=== PATIENT | male | born 1950 | race Caucasian/White ===

== ENCOUNTER → 2017-08-17 09:22 | Outpatient (CLI) | payer OTHER, SELFPAY ==
[2017-08-17 09:49] LABS: Hematocrit 43.7 % (41-53); Hemoglobin 14.7 g/dL (13.5-17.5)
[2017-08-17 10:44] LABS: BUN Creatinine Ratio 17.5 (6-22); Blood Urea Nitrogen 42 mg/dL (9-20); Calcium 9.2 mg/dL (8.4-10.2); Carbon Dioxide 22 mmol/L (22-32); Chloride 107 mmol/L (98-107); Estimated Glomerular Filt Rate 27.1 mL/min (>60); Glucose 107 mg/dL (80-110); HEMOLYSIS 16 (0-50); Potassium 4.8 mmol/L (3.4-5.1); Sodium 143 mmol/L (137-145)
== END ==
PROVIDERS: PCP Family Medicine; Visit Provider Student in an Organized Health Care Education/Training Program
DX: N05.9 Unspecified nephritic syndrome with unspecified morphologic changes (principal); D50.0 Iron deficiency anemia secondary to blood loss (chronic); D64.9 Anemia, unspecified
CPT/HCPCS: 36415; 80048; 85014; 85018

== ENCOUNTER 2017-08-25 12:58 | Emergency (ER) | payer OTHER, SELFPAY ==
--- NOTE | 2017-08-25 13:12 | DI.RAD.S_ITS ---
PROCEDURE: XR RIBS LT MIN 3V W CXR1V INDICATIONS: Left rib injury. TECHNIQUE: 2 views of the left ribs were acquired, along with a single view chest. COMPARISON: None. FINDINGS: Surgical changes and devices: None. Bones and chest wall: N displaced fractures or dislocations. No suspicious bony lesions. Overlying soft tissues appear unremarkable. Lungs and pleura: No pleural effusions or pneumothorax. Lungs appear clear. Mediastinum: Mediastinal contours appear normal. Heart size is normal. IMPRESSION: No displaced left rib fractures. No pneumothorax. Dictated by: Justice Olivo M.D. on 08/25/2017 at 13:09 Approved by: Justice Olivo M.D. on 08/25/2017 at 13:10
[2017-08-25 13:13] VITALS: BP 171/91; PULSE 61; RESP 18; TEMP 36.7; O2SAT 96; BMI 46.2
--- NOTE | 2017-08-25 13:38 | ED.FALL ---
HPI - Fall <LEENA Winslow - Last Filed: 08/25/17 19:45> General Chief Complaint: Fall Stated Complaint: FELL ON FACE,HEADACHE,STABBING PAIN Time Seen by Provider: 08/25/17 13:25 History of Present Illness HPI Narrative: 67-year-old male here for complaint of pain into his head his left chest and bilateral wrist status post ground level fall earlier today. He states that he stepped off his uneven driveway causing him to fall forward on outstretched hands. He reports that his left forehead after he rolled forward he denies any loss of consciousness. He denies any nausea or vomiting. He also reports that he has pain into his left ribcage area after the fall. Pain into both his wrist after using his arms to brace his fall. Increased pain with motion of the wrist. He is ambulatory into the emergency room. He denies any other concerns or complaints. MD complaint: fall Related Data Home Medications Medication Instructions Recorded Confirmed acetaminophen 650 mg PO PRN PRN #0 08/24/16 08/25/17 calcitriol 1 cap PO EVERY OTHER DAY 08/25/17 08/25/17 citalopram 2 tab PO BEDTIME 08/25/17 08/25/17 Previous Rx's Medication Instructions Recorded metoprolol tartrate 50 mg PO DAILY #90 tab 11/10/16 gemfibrozil 600 mg PO BIDAC #180 tab 11/16/16 simvastatin 20 mg PO HS #90 tab 12/13/16 glyburide 5 mg PO BID #180 tab 12/14/16 amlodipine [Norvasc] 5 mg PO QDAY #90 tab 01/19/17 gabapentin [Neurontin] 600 mg PO BID #120 cap 08/19/17 Allergies Allergy/AdvReac Type Severity Reaction Status Date / Time metformin AdvReac Intermediate TOXIC TO Verified 08/25/17 13:13 [facility] Review of Systems <LEENA Winslow - Last Filed: 08/25/17 19:45> Constitutional Denies chills, Denies fever(s), Reports headache(s), Denies lethargy and Denies weakness Eyes Denies change in vision, Denies eye discharge, Denies irritation and Denies loss of vision ENT Ears, Nose, Mouth, and Throat: Reports headache(s) Cardiovascular Denies chest pain, Denies irregular heart rhythm, Denies lightheadedness, Denies palpitations, Denies dyspnea, Denies dyspnea on exertion and Denies orthopnea Respiratory Denies cough, Denies dyspnea, Denies dyspnea on exertion and Denies wheezing Gastrointestinal Gastrointestinal: Denies abdominal pain, Denies change in bowel habits, Denies diarrhea, Denies nausea and Denies vomiting Genitourinary Denies hematuria, Denies flank pain, Denies urinary incontinence and Denies urinary urgency Musculoskeletal Comments: Bilateral wrist pain and left rib pain Integumentary/Breasts Denies pruritus, Denies erythema, Denies rash and Denies wounds Neurologic Reports headache(s), Denies loss of vision and Denies weakness Endocrine Denies palpitations Allergic/Immunologic Denies wheezing Exam <LEENA Winslow - Last Filed: 08/25/17 19:45> Initial Vital Signs Initial Vital Signs: Vital Signs Temperature 98.1 F 08/25/17 13:13 Pulse Rate 61 08/25/17 13:13 Respiratory Rate 18 08/25/17 13:13 Blood Pressure 171/91 H 08/25/17 13:13 Pulse Oximetry 96 08/25/17 13:13 Const General: cooperative and well developed Nutritional Appearance: well nourished Orientation: alert, awake, oriented x3 and not confused HENMS Head: abrasion and other (Abrasion to left forehead no step-offs. No raccoon eyes no [place] signs.) Mouth: oral mucosae normal, oropharynx normal and moist mucous membranes Eyes General: appearance normal, both eyes and all related structures Eyelids: eyelids normal Conjunctivae: conjunctivae normal Sclera: sclerae normal Pupils: PERRL EOM: EOM intact bilaterally Neck Neck: normal visual inspection, trachea midline, No lymphadenopathy, No midline deformity and No JVD Lymphatic: No lymphedema Chest Chest: normal inspection of the chest and tenderness Resp Effort & Inspection: normal respiratory effort, able to speak in complete sentences, no respiratory distress and no use of accessory muscles Auscultation: clear to auscultation bilaterally, no rales, no rhonchi and no wheezes Cardio Rate: regular rate Rhythm: regular rhythm Heart Sounds: no click, no gallops, no murmurs and no rubs Pulses: normal peripheral pulses GI Inspection: non-distended Palpation: soft, no hepatosplenomegaly, No guarding, No pulsatile mass and No tender Auscultation: normal bowel sounds Skin General: no rashes or lesions noted, No jaundice and No petechiae Extrem Other: Bilateral wrist with slight ecchymosis. No swelling. No deformities. Distal CMS intact distally bilaterally <Yadi Magdaleno DO - Last Filed: 08/26/17 08:27> Initial Vital Signs Initial Vital Signs: Vital Signs Temperature 98.1 F 08/25/17 13:13 Pulse Rate 61 08/25/17 13:13 Respiratory Rate 18 08/25/17 13:13 Blood Pressure 171/91 H 08/25/17 13:13 Pulse Oximetry 96 08/25/17 13:13 Course <LEENA Winslow - Last Filed: 08/25/17 19:45> Orders Ordered: Discontinued Medications Acetaminophen (Tylenol) 325 mg HI NOW ONE Stop: 08/25/17 13:46 Last Admin: 08/25/17 14:00 Dose: Not Given Acetaminophen (Tylenol) 325 mg PO Q6HR PRN PRN Reason: As Needed for Fever/Mild Pain Last Admin: 08/25/17 14:00 Dose: 325 mg Vital Signs - 8 hr 08/25/17 13:13 08/25/17 16:18 Temperature 98.1 F Pulse Rate 61 54 L Respiratory Rate 18 17 Blood Pressure 171/91 H 119/89 H Pulse Oximetry 96 98 <Yadi Magdaleno DO - Last Filed: 08/26/17 08:27> Orders Ordered: Discontinued Medications Acetaminophen (Tylenol) 325 mg HI NOW ONE Stop: 08/25/17 13:46 Last Admin: 08/25/17 14:00 Dose: Not Given Acetaminophen (Tylenol) 325 mg PO Q6HR PRN PRN Reason: As Needed for Fever/Mild Pain Last Admin: 08/25/17 14:00 Dose: 325 mg Vital Signs - 8 hr 08/25/17 13:13 08/25/17 16:18 Temperature 98.1 F Pulse Rate 61 54 L Respiratory Rate 18 17 Blood Pressure 171/91 H 119/89 H Pulse Oximetry 96 98 MDM - Fall <LEENA Winslow - Last Filed: 08/25/17 19:45> Imaging Data CT scan - head: Radiologist's impression: PROCEDURE: CT HEAD/BRAIN WO CON INDICATIONS: Ground level fall hitting forehead. TECHNIQUE: Noncontrast 4.5 mm thick angled axial sections acquired from the foramen magnum to the vertex, with coronal and sagittal reformats. For radiation dose reduction, the following was used: automated exposure control, adjustment of mA and/or kV according to patient size. COMPARISON: None. FINDINGS: Image quality: Excellent. CSF spaces: Basal cisterns are patent. No extra-axial fluid collections. The ventricles are symmetric in size and shape. Brain: No intracranial bleeds or masses. There is cerebral volume loss for age, with resultant ventricular and sulcal prominence. There are periventricular and deep white matter chronic small vessel ischemic changes. There is intracranial internal carotid artery atherosclerosis. Skull and face: Calvarium and visualized facial bones appear intact, without suspicious lesions. Sinuses: Visualized sinuses and mastoids are clear. IMPRESSION: 1. No acute intracranial process. 2. Minimal atrophy and chronic microvascular ischemic changes. Dictated by: Catherine Balbuena M.D. on 08/25/2017 at 14:48 Approved by: Catherine Balbuena M.D. on 08/25/2017 at 14:50 Chest x-ray: Radiologist's impression: PROCEDURE: XR RIBS LT MIN 3V W CXR1V INDICATIONS: Left rib injury. TECHNIQUE: 2 views of the left ribs were acquired, along with a single view chest. COMPARISON: None. FINDINGS: Surgical changes and devices: None. Bones and chest wall: N displaced fractures or dislocations. No suspicious bony lesions. Overlying soft tissues appear unremarkable. Lungs and pleura: No pleural effusions or pneumothorax. Lungs appear clear. Mediastinum: Mediastinal contours appear normal. Heart size is normal. IMPRESSION: No displaced left rib fractures. No pneumothorax. Dictated by: Justice Olivo M.D. on 08/25/2017 at 13:09 Approved by: Justice Olivo M.D. on 08/25/2017 at 13:10 Right wrist : Radiologist's impression: PROCEDURE: XR WRIST RT MIN 3V INDICATIONS: Ground level fall on the outstretched hand TECHNIQUE: 4 views of the wrist were acquired. COMPARISON: [facility], , HAND 3V RIGHT, 12/31/2015, 14:30. [facility], , WRIST MINIMUM 3 VIEWS RIGHT, 12/31/2015, 14:30. 12/31/15.[facility], XR WRIST LT MIN 3V, 08/25/2017, 13:33. FINDINGS: Bones: There is an ill-defined, nondisplaced lucency within the midportion of the scaphoid. This appears new compared to prior exam dated 12/31/15. However, it is noted it is only identified on the scaphoid view. Soft tissues: No suspicious soft tissue calcifications. IMPRESSION: Ill-defined nondisplaced lucency within the midportion of the scaphoid, seen only on one view and appearing changed compared to prior exam. Nondisplaced fracture cannot be excluded and recommend correlation of point tenderness as well as short interval imaging followup in 7-10 days. Dictated by: Catherine Balbuena M.D. on 08/25/2017 at 14:31 Approved by: Catherine Balbuena M.D. on 08/25/2017 at 14:35 Left wrist : Radiologist's impression: PROCEDURE: XR WRIST LT MIN 3V INDICATIONS: Ground level fall with outstretched hands TECHNIQUE: 4 views of the wrist were acquired. COMPARISON: [facility], WRIST MINIMUM 3 VIEWS RIGHT, 12/31/2015, 14:30. FINDINGS: Bones: There is a partially visualized rounded calcification adjacent to the lateral aspect of the distal radius adjacent to the scaphoid. It is not well characterized on all views. Soft tissues: No suspicious soft tissue calcifications. IMPRESSION: Personally visually calcification at the lateral aspect of the distal radius as above. Positioning is considered suboptimal. This could represent a radial styloid fracture. Recommend correlation of point tenderness. Dictated by: Catherine Balbuena M.D. on 08/25/2017 at 14:35 Approved by: Catherine Balbuena M.D. on 08/25/2017 at 14:42 [facility] Narrative Medical decision making narrative: CT the head was obtained was negative for any acute findings. Chest/rib xray negative for any fractures. X-ray of the right wrist shows some lucency next to the scaphoid bone indicating possible fracture he is placed in a thumb spica splint for immobilization. Left wrist x-ray shows calcification adjacent to the distal lateral radius indicating possible fracture. Patient is tender in both wrists he is placed in a left sugar-tong splint. He is referred to Orthopedics for further evaluation and treatment. [id number] Tylenol as needed for any discomfort. Ice and elevation help with any swelling. For any worsening symptoms return to the emergency room. Head injury instructions provided with warning signs return to the emergency room. Discharge Plan Departure Patient Disposition: Home, Self-Care Clinical Impression: Headache, Left wrist pain, Pain in right wrist, Rib pain on left side Discharge Date/Time: 08/25/17 16:18 Interventions: ED Discharge Assessment Last Done: 08/25/17 16:18 Instructions: DI for Rib Contusion, DI for Closed Head Injury, DI for Wrist Pain Activity Restrictions/Additional Instructions: CT of the head was obtained was negative for any acute findings. Signs and symptoms presents as minor head injury. Head injury instructions are provided with warning signs return to the emergency room. X-ray of the left ribcage and chest was obtained was negative for any acute fractures. Signs and symptoms presents as contusion to the left ribs. X-rays of both wrists show findings that could indicate a minor fracture. You have been placed in splints for comfort and support use as directed. Use [id number] Tylenol as needed for any discomfort ice and elevation for any swelling. Urine for Orthopedics call the office at number provided to schedule follow-up appointment. For any worsening symptoms return to the emergency room. Prescriptions: No Action acetaminophen 650 MG tablet extended release 650 mg PO PRN PRN (Reason: Pain, Mild) Qty: 0 RF: 0 metoprolol tartrate 50 MG tablet 50 mg PO DAILY Qty: 90 RF: 3 gemfibrozil 600 MG tablet 600 mg PO BIDAC Qty: 180 RF: 3 simvastatin 20 MG tablet 20 mg PO HS Qty: 90 RF: 3 glyburide 5 MG tablet 5 mg PO BID Qty: 180 RF: 3 amlodipine [Norvasc] 5 MG tablet 5 mg PO QDAY Qty: 90 RF: 3 gabapentin [Neurontin] 300 mg capsule 600 mg PO BID Qty: 120 RF: 1 calcitriol 0.25 mcg capsule 1 cap PO EVERY OTHER DAY RF: 0 citalopram 20 MG tablet 2 tab PO BEDTIME RF: 0 Referrals: Jon Cee MD [Primary Care Provider] - Lenny Richards MD [Physician] - <Yadi Magdaleno DO - Last Filed: 08/26/17 08:27> Cosign ED Attending Cosignature Attestation: I was immediately available in the department for consultation. Documentation has been reviewed. I agree with assessment and plan.
--- NOTE | 2017-08-25 13:45 | DI.RAD.S_ITS ---
PROCEDURE: XR WRIST LT MIN 3V INDICATIONS: Ground level fall with outstretched hands TECHNIQUE: 4 views of the wrist were acquired. COMPARISON: [facility], , WRIST MINIMUM 3 VIEWS RIGHT, 12/31/2015, 14:30. FINDINGS: Bones: There is a partially visualized rounded calcification adjacent to the lateral aspect of the distal radius adjacent to the scaphoid. It is not well characterized on all views. Soft tissues: No suspicious soft tissue calcifications. IMPRESSION: Personally visually calcification at the lateral aspect of the distal radius as above. Positioning is considered suboptimal. This could represent a radial styloid fracture. Recommend correlation of point tenderness. Dictated by: Catherine Balbuena M.D. on 08/25/2017 at 14:35 Approved by: Catherine Balbuena M.D. on 08/25/2017 at 14:42
--- NOTE | 2017-08-25 13:45 | DI.RAD.S_ITS ---
PROCEDURE: XR WRIST RT MIN 3V INDICATIONS: Ground level fall on the outstretched hand TECHNIQUE: 4 views of the wrist were acquired. COMPARISON: [facility], [facility], HAND 3V RIGHT, 12/31/2015, 14:30. [facility], [facility], WRIST MINIMUM 3 VIEWS RIGHT, 12/31/2015, 14:30. 12/31/15.[facility], [facility], XR WRIST LT MIN 3V, 08/25/2017, 13:33. FINDINGS: Bones: There is an ill-defined, nondisplaced lucency within the midportion of the scaphoid. This appears new compared to prior exam dated 12/31/15. However, it is noted it is only identified on the scaphoid view. Soft tissues: No suspicious soft tissue calcifications. IMPRESSION: Ill-defined nondisplaced lucency within the midportion of the scaphoid, seen only on one view and appearing changed compared to prior exam. Nondisplaced fracture cannot be excluded and recommend correlation of point tenderness as well as short interval imaging followup in 7-10 days. Dictated by: Catherine Balbuena M.D. on 08/25/2017 at 14:31 Approved by: Catherine Balubena M.D. on 08/25/2017 at 14:35
--- NOTE | 2017-08-25 13:46 | DI.CT.S_ITS ---
PROCEDURE: CT HEAD/BRAIN WO CON INDICATIONS: Ground level fall hitting forehead. TECHNIQUE: Noncontrast 4.5 mm thick angled axial sections acquired from the foramen magnum to the vertex, with coronal and sagittal reformats. For radiation dose reduction, the following was used: automated exposure control, adjustment of mA and/or kV according to patient size. COMPARISON: None. FINDINGS: Image quality: Excellent. CSF spaces: Basal cisterns are patent. No extra-axial fluid collections. The ventricles are symmetric in size and shape. Brain: No intracranial bleeds or masses. There is cerebral volume loss for age, with resultant ventricular and sulcal prominence. There are periventricular and deep white matter chronic small vessel ischemic changes. There is intracranial internal carotid artery atherosclerosis. Skull and face: Calvarium and visualized facial bones appear intact, without suspicious lesions. Sinuses: Visualized sinuses and mastoids are clear. IMPRESSION: 1. No acute intracranial process. 2. Minimal atrophy and chronic microvascular ischemic changes. Dictated by: Catherine Balbuena M.D. on 08/25/2017 at 14:48 Approved by: Catherine Balbuena M.D. on 08/25/2017 at 14:50
[2017-08-25] MEDS: ACETAMINOPHEN 325 MG TABLET PO (14:00)
[2017-08-25 16:18] VITALS: BP 119/89; PULSE 54; RESP 17; O2SAT 98
== END 2017-08-25 16:18 | disposition home or self-care (01) ==
PROVIDERS: Emergency Provider Nurse Practitioner Family; PCP Family Medicine
DX: R51 Headache (principal); M25.532 Pain in left wrist; M25.531 Pain in right wrist; R07.81 Pleurodynia; W18.30XA Fall on same level, unspecified, initial encounter
CPT/HCPCS: 29125; 70450; 71101; 73110; 99283; 99284; Q9967

== ENCOUNTER → 2017-09-10 08:05 | Outpatient (CLI) | payer OTHER, SELFPAY ==
[2017-09-10 09:06] LABS: Add Manual Diff / Slide Review NO; Basophils Percent Auto 0.6 % (0-2); Eosinophils Percent Auto 6.8 % (2-4); Hematocrit 45.3 % (41-53); Hemoglobin 15.2 g/dL (13.5-17.5); Lymphocytes Percent Auto 28.7 % (25-40); Mean Corpuscular HGB Conc 33.6 % (30-36); Mean Corpuscular Hemoglobin 33.7 PG (26-34); Mean Corpuscular Volume 100.2 fL (80-100); Monocytes Percent Auto 10.6 % (3-14); Neutrophils Absolute Auto 3500 /uL (3000-5900); Neutrophils Percent Auto 53.3 % (50-75); Platelet Count 239 X10^3/uL (150-400); Red Blood Cell Count 4.52 X10^6/uL (4.5-5.9); Red Cell Distribution Width 13.5 % (11.6-14.8); White Blood Cell Count 6.5 X10^3/uL (4.5-11.0)
[2017-09-10 09:17] LABS: Hemoglobin A1C% w Est Avg Glu 5.8 % (4.0-6.0)
[2017-09-10 09:30] LABS: Alanine Aminotransferase 22 IU/L (21-72); Albumin 4.2 g/dL (3.5-5.0); Albumin Globulin Ratio 1.4 (1.0-2.8); Alkaline Phosphatase 116 U/L (38-126); Aspartate Aminotransferase 15 IU/L (17-59); BUN Creatinine Ratio 16.2 (6-22); Bilirubin Total 0.5 mg/dL (0.2-1.3); Blood Urea Nitrogen 42 mg/dL (9-20); Calcium 9.4 mg/dL (8.4-10.2); Carbon Dioxide 25 mmol/L (22-32); Chloride 107 mmol/L (98-107); Cholesterol 126 mg/dL (140-199); Estimated Glomerular Filt Rate 24.7 mL/min (>60); Globulin 3.1 g/dL (1.7-4.1); Glucose 81 mg/dL (80-110); HDL Cholesterol 36 mg/dL (40-60); HEMOLYSIS < 15 (0-50); LDL Cholesterol Calculated 65 mg/dL (<100); Potassium 4.5 mmol/L (3.4-5.1); Sodium 146 mmol/L (137-145); Total Protein 7.3 g/dL (6.3-8.2); Triglycerides 126 mg/dL (35-150)
[2017-09-10 09:59] LABS: Prostate Specific Antigen Scrn 1.23 ng/mL (0.1-4.0)
[2017-09-10 10:07] LABS: Thyroid Stimulating Hormone 2.77 uIU/mL (0.47-4.68)
== END ==
PROVIDERS: PCP Family Medicine; Visit Provider Family Medicine
DX: E11.9 Type 2 diabetes mellitus without complications (principal)
CPT/HCPCS: 36415; 80053; 80061; 83036; 84443; 85025; G0103

== ENCOUNTER → 2017-12-08 08:36 | Outpatient (CLI) | payer OTHER, SELFPAY ==
[2017-12-08 09:13] LABS: Hemoglobin A1C% w Est Avg Glu 5.8 % (4.0-6.0)
[2017-12-08 09:44] LABS: BUN Creatinine Ratio 14.6 (6-22); Blood Urea Nitrogen 38 mg/dL (9-20); Calcium 9.3 mg/dL (8.4-10.2); Carbon Dioxide 28 mmol/L (22-32); Chloride 109 mmol/L (98-107); Estimated Glomerular Filt Rate 24.7 mL/min (>60); Glucose 97 mg/dL (80-110); HEMOLYSIS < 15 (0-50); Potassium 4.4 mmol/L (3.4-5.1); Sodium 149 mmol/L (137-145)
== END ==
PROVIDERS: PCP Family Medicine; Visit Provider Family Medicine
DX: E11.9 Type 2 diabetes mellitus without complications (principal)
CPT/HCPCS: 36415; 80048; 83036

== ENCOUNTER → 2018-01-09 07:18 | Outpatient (CLI) | payer OTHER, SELFPAY ==
[2018-01-09 08:32] LABS: Hematocrit 42.8 % (41-53); Hemoglobin 14.4 g/dL (13.5-17.5)
[2018-01-09 08:40] LABS: BUN Creatinine Ratio 16.9 (6-22); Blood Urea Nitrogen 59 mg/dL (9-20); Calcium 10.1 mg/dL (8.4-10.2); Carbon Dioxide 26 mmol/L (22-32); Chloride 106 mmol/L (98-107); Estimated Glomerular Filt Rate 17.5 mL/min (>60); Glucose 51 mg/dL (80-110); HEMOLYSIS < 15 (0-50); Potassium 4.4 mmol/L (3.4-5.1); Sodium 147 mmol/L (137-145)
[2018-01-11 12:22] LABS: Parathyroid Hormone Int 68 pg/mL (14-64)
== END ==
PROVIDERS: PCP Family Medicine; Visit Provider Student in an Organized Health Care Education/Training Program
DX: N05.9 Unspecified nephritic syndrome with unspecified morphologic changes (principal); D64.9 Anemia, unspecified; N25.81 Secondary hyperparathyroidism of renal origin
CPT/HCPCS: 36415; 80048; 83970; 85014; 85018

== ENCOUNTER → 2018-01-11 16:00 | Outpatient (CLI) | payer OTHER, SELFPAY ==
--- NOTE | 2018-01-11 16:02 | DI.US.S_ITS ---
PROCEDURE: US RENAL COMPLETE INDICATIONS: ACUTE RENAL FAILURE TECHNIQUE: Real-time scanning was performed of the kidneys and bladder, with image documentation. COMPARISON: , , RENAL COMPLETE, 12/15/2015, 10:04. FINDINGS: Kidneys: Kidneys are normal in size. Right kidney measures 9.8 cm long; left kidney measures 11.1 cm long. Right renal cortical thickness is 1.2 cm; left renal cortical thickness is 1.5 cm. Renal cortical echotexture is normal. No right hydronephrosis. Moderate left hydronephrosis. There are 4 calcifications seen within the right renal collecting system largest measuring 1.0 cm. 2 calcifications seen within the left renal collecting system largest measuring 1.1 cm. Possible 7 mm stone within the left renal pelvis/proximal left ureter. Bladder: Pre-void bladder volume is 399 mL. Post-void residual is 10 mL. Pre-void images demonstrate no intraluminal masses or stones. On pre-void images, right ureteral jets are noted with color Doppler interrogation. (Of note, ureteral jets may not be detectable in up to 25% of cases due to insufficient differences in specific gravity between ureteral and bladder urine). Miscellaneous: No free pelvic fluid. IMPRESSION: 1. Moderate left hydronephrosis and possible 7 mm calcification within the left renal pelvis versus the proximal left ureter. If indicated CT KUB could be performed. 2. Bilateral renal collecting system stones. 3. 10 cc postvoid residual. Dictated by: Francisco Javier Kumar [facility] Interpreted: Michael Escobar MD on 01/11/2018 at 17:01 Approved by: Michael Escobar M.D. on 01/11/2018 at 17:20
== END ==
PROVIDERS: PCP Family Medicine; Visit Provider Student in an Organized Health Care Education/Training Program
DX: N17.9 Acute kidney failure, unspecified (principal); N13.30 Unspecified hydronephrosis; N20.9 Urinary calculus, unspecified
CPT/HCPCS: 36415; 76770; 80048

== ENCOUNTER → 2018-01-11 16:58 | Outpatient (CLI) | payer OTHER, SELFPAY ==
[2018-01-11 18:18] LABS: BUN Creatinine Ratio 15.5 (6-22); Blood Urea Nitrogen 48 mg/dL (9-20); Calcium 9.2 mg/dL (8.4-10.2); Carbon Dioxide 23 mmol/L (22-32); Chloride 109 mmol/L (98-107); Estimated Glomerular Filt Rate 20.1 mL/min (>60); Glucose 86 mg/dL (80-110); HEMOLYSIS < 15 (0-50); Potassium 4.6 mmol/L (3.4-5.1); Sodium 146 mmol/L (137-145)
== END ==
PROVIDERS: PCP Family Medicine; Visit Provider Student in an Organized Health Care Education/Training Program
DX: N17.9 Acute kidney failure, unspecified (principal); N13.30 Unspecified hydronephrosis; N20.9 Urinary calculus, unspecified
CPT/HCPCS: 36415; 80048

== ENCOUNTER → 2018-01-16 10:35 | Outpatient (CLI) | payer OTHER, SELFPAY ==
--- NOTE | 2018-01-16 | DI.CT.S_ITS ---
PROCEDURE: CT KIDNEY URETER BLADDER (KUB) INDICATIONS: KIDNEY STONES TECHNIQUE: Noncontrast 5 mm thick sections acquired from the diaphragms to the symphysis. 5 mm thick coronal and sagittal reformats were then performed. For radiation dose reduction, the following was used: automated exposure control, adjustment of mA and/or kV according to patient size. COMPARISON: [facility], CT, KIDNEY/ URETER/BLADDER, 06/11/2015, 12:08. [facility], CT, KIDNEY/ URETER/BLADDER, 02/01/2012, 7:48. FINDINGS: Image quality: Excellent. Lung bases: Lung bases are clear. Heart size is normal. Urinary system: Both kidneys are normal in size. No kidney stones. No hydronephrosis or new perinephric fat stranding, and right-sided medullary calcinosis is again seen without obstructive collecting system calculus. Each kidney again shows mild perinephric edema/scarring. Both ureters appear non-dilated throughout their expected courses. Bladder wall thickness is normal; no calcified bladder stones. Other solid organs: Liver is normal in size. Gallbladder appears normal. Pancreas is normal in contours. Spleen is normal in size. No adrenal nodules. Peritoneum and bowel: Unenhanced bowel loops demonstrate normal wall thickness and caliber. No free fluid or air. Nodes and vessels: No retroperitoneal or mesenteric adenopathy by size criteria. Aorta and inferior vena cava are normal in caliber. Abdominal wall: No ventral hernias. Pelvis: No free pelvic fluid. No inguinal hernias or adenopathy. Bones: No suspicious bony lesions. No vertebral body compression fractures. IMPRESSION: No urinary tract obstructive stone is found. 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 Mild perinephric edema/scarring is stable over time, likely sequela from prior events of urinary tract infection or obstruction. Currently no acute disease is suspected. Dictated by: Daniel Lao M.D. on 01/16/2018 at 12:43 Approved by: Daniel Lao M.D. on 01/16/2018 at 12:55
== END ==
PROVIDERS: PCP Family Medicine; Visit Provider Urology
DX: N20.0 Calculus of kidney (principal)
CPT/HCPCS: 74176

== ENCOUNTER → 2018-02-06 06:59 | Outpatient (CLI) | payer OTHER, SELFPAY ==
[2018-02-06 08:03] LABS: BUN Creatinine Ratio 18.1 (6-22); Blood Urea Nitrogen 47 mg/dL (9-20); Calcium 9.1 mg/dL (8.4-10.2); Carbon Dioxide 19 mmol/L (22-32); Chloride 112 mmol/L (98-107); Estimated Glomerular Filt Rate 24.7 mL/min (>60); Glucose 98 mg/dL (80-110); HEMOLYSIS 29 (0-50); Potassium 4.5 mmol/L (3.4-5.1); Sodium 146 mmol/L (137-145)
== END ==
PROVIDERS: Family Provider Family Medicine; PCP Family Medicine; Visit Provider Student in an Organized Health Care Education/Training Program
DX: N06.9 Isolated proteinuria with unspecified morphologic lesion (principal)
CPT/HCPCS: 36415; 80048

== ENCOUNTER → 2018-03-18 08:07 | Outpatient (CLI) | payer OTHER, SELFPAY ==
[2018-03-18 09:00] LABS: Hemoglobin A1C% w Est Avg Glu 5.9 % (4.0-6.0)
[2018-03-18 09:09] LABS: BUN Creatinine Ratio 16.3 (6-22); Blood Urea Nitrogen 39 mg/dL (9-20); Calcium 9.5 mg/dL (8.4-10.2); Carbon Dioxide 26 mmol/L (22-32); Chloride 105 mmol/L (98-107); Cholesterol 133 mg/dL (140-199); Estimated Glomerular Filt Rate 27.1 mL/min (>60); Glucose 136 mg/dL (80-110); HDL Cholesterol 38 mg/dL (40-60); HEMOLYSIS < 15 (0-50); LDL Cholesterol Calculated 73 mg/dL (<100); Potassium 4.6 mmol/L (3.4-5.1); Sodium 144 mmol/L (137-145); Triglycerides 110 mg/dL (35-150)
== END ==
PROVIDERS: PCP Family Medicine; Visit Provider Family Medicine
DX: E11.9 Type 2 diabetes mellitus without complications (principal)
CPT/HCPCS: 36415; 80048; 80061; 83036

== ENCOUNTER → 2018-04-05 09:23 | Outpatient (CLI) | payer OTHER, SELFPAY ==
[2018-04-05 10:22] LABS: Hematocrit 41.9 % (41-53); Hemoglobin 14.2 g/dL (13.5-17.5)
[2018-04-05 10:37] LABS: BUN Creatinine Ratio 16.5 (6-22); Blood Urea Nitrogen 43 mg/dL (9-20); Calcium 9.6 mg/dL (8.4-10.2); Carbon Dioxide 28 mmol/L (22-32); Chloride 104 mmol/L (98-107); Estimated Glomerular Filt Rate 24.7 mL/min (>60); Glucose 140 mg/dL (80-110); HEMOLYSIS 16 (0-50); Potassium 4.7 mmol/L (3.4-5.1); Sodium 141 mmol/L (137-145)
[2018-04-05 10:44] LABS: HEMOLYSIS < 15 (0-50); Iron 159 ug/dL (49-181)
[2018-04-05 10:55] LABS: Percent Iron Saturation 50 % (20-50); Total Iron Binding Capacity 321 ug/dL (261-462); Transferrin 260 mg/dL (206-381)
== END ==
PROVIDERS: Family Provider Family Medicine; PCP Family Medicine; Visit Provider Student in an Organized Health Care Education/Training Program
DX: N05.9 Unspecified nephritic syndrome with unspecified morphologic changes (principal); D50.0 Iron deficiency anemia secondary to blood loss (chronic); D64.9 Anemia, unspecified
CPT/HCPCS: 36415; 80048; 82728; 83540; 83550; 85014; 85018

== ENCOUNTER → 2018-07-13 06:48 | Outpatient (CLI) | payer OTHER, SELFPAY ==
[2018-07-13 07:46] LABS: Hematocrit 43.2 % (41-53); Hemoglobin 14.6 g/dL (13.5-17.5)
[2018-07-13 08:02] LABS: BUN Creatinine Ratio 21.8 (6-22); Blood Urea Nitrogen 61 mg/dL (9-20); Calcium 9.4 mg/dL (8.4-10.2); Carbon Dioxide 25 mmol/L (22-32); Chloride 105 mmol/L (98-107); Estimated Glomerular Filt Rate 22.6 mL/min (>60); Glucose 83 mg/dL (80-110); HEMOLYSIS < 15 (0-50); Hemoglobin A1C% w Est Avg Glu 5.6 % (4.0-6.0); Potassium 4.4 mmol/L (3.4-5.1); Sodium 142 mmol/L (137-145)
[2018-07-13 08:03] LABS: HEMOLYSIS < 15 (0-50); Iron 129 ug/dL (49-181)
[2018-07-13 08:15] LABS: Percent Iron Saturation 36 % (20-50); Total Iron Binding Capacity 360 ug/dL (261-462); Transferrin 271 mg/dL (206-381)
[2018-07-14 17:17] LABS: Parathyroid Hormone Int 152 pg/mL (14-64)
== END ==
PROVIDERS: Family Provider Student in an Organized Health Care Education/Training Program; PCP Family Medicine; Visit Provider Family Medicine
DX: N05.9 Unspecified nephritic syndrome with unspecified morphologic changes (principal); D50.0 Iron deficiency anemia secondary to blood loss (chronic); D64.9 Anemia, unspecified; N25.81 Secondary hyperparathyroidism of renal origin; E11.9 Type 2 diabetes mellitus without complications
CPT/HCPCS: 36415; 80048; 82728; 83036; 83540; 83550; 83970; 85014; 85018

== ENCOUNTER → 2018-10-14 08:00 | Outpatient (CLI) | payer OTHER, SELFPAY ==
[2018-10-14 09:34] LABS: BUN Creatinine Ratio 17.8 (6-22); Blood Urea Nitrogen 48 mg/dL (9-20); Calcium 9.3 mg/dL (8.4-10.2); Carbon Dioxide 28 mmol/L (22-32); Chloride 108 mmol/L (98-107); Estimated Glomerular Filt Rate 23.5 mL/min (>60); Glucose 92 mg/dL (80-110); HEMOLYSIS < 15 (0-50); Potassium 4.4 mmol/L (3.4-5.1); Sodium 143 mmol/L (137-145)
[2018-10-14 09:46] LABS: Hemoglobin A1C% w Est Avg Glu 5.4 % (4.0-6.0)
== END ==
PROVIDERS: PCP Family Medicine; Visit Provider Family Medicine
DX: E11.9 Type 2 diabetes mellitus without complications (principal)
CPT/HCPCS: 36415; 80048; 83036

== ENCOUNTER → 2018-10-26 08:32 | Outpatient (CLI) | payer OTHER, SELFPAY ==
[2018-10-26 10:04] LABS: BUN Creatinine Ratio 17.5 (6-22); Blood Urea Nitrogen 49 mg/dL (9-20); Calcium 9.5 mg/dL (8.4-10.2); Carbon Dioxide 26 mmol/L (22-32); Chloride 107 mmol/L (98-107); Estimated Glomerular Filt Rate 22.6 mL/min (>60); Glucose 104 mg/dL (80-110); HEMOLYSIS < 15 (0-50); Potassium 4.8 mmol/L (3.4-5.1); Sodium 144 mmol/L (137-145)
[2018-10-28 16:55] LABS: Parathyroid Hormone Int 24 pg/mL (14-64)
== END ==
PROVIDERS: PCP Family Medicine; Visit Provider Student in an Organized Health Care Education/Training Program
DX: N05.9 Unspecified nephritic syndrome with unspecified morphologic changes (principal); N25.81 Secondary hyperparathyroidism of renal origin
CPT/HCPCS: 36415; 80048; 83970

== ENCOUNTER → 2019-02-06 07:44 | Outpatient (CLI) | payer OTHER, SELFPAY ==
[2019-02-06 08:56] LABS: Hematocrit 44.2 % (41-53); Hemoglobin 15.1 g/dL (13.5-17.5)
[2019-02-06 09:24] LABS: Blood Urea Nitrogen 51 mg/dL (9-20); Calcium 9.9 mg/dL (8.4-10.2); Carbon Dioxide 25 mmol/L (22-32); Chloride 106 mmol/L (98-107); Estimated Glomerular Filt Rate 20.9 mL/min (>60); Glucose 116 mg/dL (80-110); HEMOLYSIS < 15 (0-50); Potassium 4.6 mmol/L (3.4-5.1); Sodium 142 mmol/L (137-145)
[2019-02-10 14:11] LABS: Parathyroid Hormone Int 94 pg/mL (14-64)
== END ==
PROVIDERS: PCP Family Medicine; Visit Provider Student in an Organized Health Care Education/Training Program
DX: N05.9 Unspecified nephritic syndrome with unspecified morphologic changes (principal); D64.9 Anemia, unspecified; N25.81 Secondary hyperparathyroidism of renal origin; E11.9 Type 2 diabetes mellitus without complications
CPT/HCPCS: 36415; 80048; 83970; 85014; 85018

== ENCOUNTER → 2019-02-19 12:03 | Outpatient (CLI) | payer OTHER, SELFPAY ==
[2019-02-19 12:47] LABS: Hemoglobin A1C% w Est Avg Glu 5.4 % (4.0-6.0)
[2019-02-19 13:02] LABS: BUN Creatinine Ratio 18.6 (6-22); Blood Urea Nitrogen 54 mg/dL (9-20); Calcium 9.7 mg/dL (8.4-10.2); Carbon Dioxide 26 mmol/L (22-32); Chloride 105 mmol/L (98-107); Estimated Glomerular Filt Rate 21.7 mL/min (>60); Glucose 114 mg/dL (80-110); HEMOLYSIS < 15 (0-50); Potassium 4.2 mmol/L (3.4-5.1); Sodium 140 mmol/L (137-145)
[2019-02-19 14:47] LABS: Creatinine Urine Random 92.2 mg/dL
[2019-02-19 15:14] LABS: Microalbumi Creatinin Ratio Ur 342.7 ug/mg CR (<30); Microalbumin Urine Random 31.6 mg/dL (0-1.6)
== END ==
PROVIDERS: PCP Family Medicine; Visit Provider Family Medicine
DX: E11.9 Type 2 diabetes mellitus without complications (principal)
CPT/HCPCS: 36415; 80048; 82043; 82570; 83036

== ENCOUNTER 2019-03-22 08:06 | Observation (INO) | payer OTHER, SELFPAY ==
[2019-03-22] VITALS (13 sets, daily range): BP systolic 139–171; BP diastolic 56–89; PULSE 56–74; RESP 15–23; TEMP 36.5–36.8; O2SAT 94–100; BMI 42.5
--- NOTE | 2019-03-22 08:06 | ED_ITS ---
HPI - Weakness General Chief complaint: Upper Respiratory Symptoms Stated complaint: Respiratory infection Time Seen by Provider: 03/22/19 08:12 Source: patient and EMS Mode of arrival: EMS Limitations: no limitations History of Present Illness HPI Narrative: 68M former smoker, diabetic presents by EMS for evaluation of generalized weakness, cough and one episode of diarrhea. He had had shortness of breath, cough and feeling generally unwell for about a week prior to going to see his PCP yesterday and was given an Rx for Biaxin, of which he took one dose. He awoke this morning feeling generally unwell, not necessarily worse. He was able to ambulate without significant difficulty. He denies any worsening diff iculty in breathing, N/V, fever, or shaking chills. He did have one episode of diarrhea, but no other evolution of symptoms. Related Data Home Medications Medication Instructions Recorded Confirmed acetaminophen 650 mg PO PRN PRN #0 08/24/16 03/22/19 calcitriol 1 cap PO DAILY 08/25/17 03/22/19 amlodipine [Norvasc] 5 mg PO DAILY 03/22/19 03/22/19 citalopram 40 mg PO BEDTIME 03/22/19 03/22/19 gabapentin 600 mg PO BID 03/22/19 03/22/19 gemfibrozil 600 mg PO DAILY 03/22/19 03/22/19 glyburide 5 mg PO BID 03/22/19 03/22/19 potassium citrate 10 meq PO DAILY 03/22/19 03/22/19 simvastatin 20 mg PO QPM 03/22/19 03/22/19 Previous Rx's Medication Instructions Recorded niacin 750 mg tablet,extended 750 mg PO BEDTIME #90 tab 03/21/18 release metoprolol tartrate 50 mg PO DAILY #90 tab 11/03/18 albuterol sulfate 90 mcg/actuation 2 puff INHALATION Q4-6H PRN #8.5 03/20/19 aerosol inhaler gram clarithromycin 500 mg tablet 500 mg PO BID #14 tab 03/20/19 Allergies Allergy/AdvReac Type Severity Reaction Status Date / Time metformin AdvReac Intermediate TOXIC TO Verified 03/22/19 08:14 [facility] Review of Systems Constitutional Constitutional: Denies chills, Denies fatigue, Denies fever(s), Denies frequent falls, Denies lethargy and Reports weakness Eyes Eyes: Denies change in vision, Denies eye discharge, Denies irritation and Denies loss of vision ENT Ears, Nose, Mouth, and Throat: Denies change in voice, Denies dizziness, Denies neck pain, Denies sore throat and Denies throat swelling Cardiovascular Cardiovascular: Denies chest pain, Denies irregular heart rhythm, Denies lightheadedness, Denies palpitations, Denies dyspnea, Denies dyspnea on exertion and Denies orthopnea Respiratory Respiratory: Reports cough, Denies dyspnea, Denies dyspnea on exertion and Denies wheezing Gastrointestinal Gastrointestinal: Denies abdominal pain, Denies change in bowel habits, Denies diarrhea, Denies nausea and Denies vomiting Genitourinary Genitourinary: Denies hematuria, Denies flank pain, Denies urinary incontinence and Denies urinary urgency Musculoskeletal Musculoskeletal: Denies back pain, Denies muscle weakness, Denies neck pain, Denies numbness and Denies tingling Integumentary/Breasts Skin/Breast: Denies pruritus, Denies erythema, Denies rash and Denies wounds Neurologic Neurologic: Denies behavioral changes, Denies confusion, Denies dizziness, Denie s frequent falls, Denies loss of vision, Denies numbness, Denies tingling and Reports weakness Psychiatric Psychiatric: Denies anxiety, Denies behavioral changes, Denies confusion, Denies depression, Denies homicidal ideation and Denies suicidal ideation Endocrine Endocrine: Denies fatigue, Denies flushing and Denies palpitations Hematologic/Lymphatic Hematologic/Lymphatic: Denies easy bruising Allergic/Immunologic Allergic/Immunologic: Denies urticaria, Denies throat swelling and Denies wheezing Patient History Medical History Acne (Chronic) Ankle pain (Chronic) Chicken pox (Resolved ~1959) Depression (Chronic ~1999) Diabetes mellitus (Chronic ~2005) Foot pain (Chronic) Fractures (Resolved) Headache (Chronic) Kidney disease (Chronic) Kidney stones (Chronic ~2005) Measles (Resolved ~1959) Mumps (Resolved ~1959) Plantar warts (Chronic ~1959) Shoulder pain (Chronic) Family History Mother Age: 86 Cerebrovascular accident (CVA), unspecified mechanism Social History household members: spouse Smoking Status: Former smoker alcohol intake: former Exam Narrative Exam Narrative: GENERAL: [68] year old patient appears stated age. Well- nourished, well-developed patient, in mild distress. No significant or obvious respiratory distress or increased work of breathing HEAD: Atraumatic. Normocephalic. EYES: Pupils equal round and reactive. Extraocular motions intact. No scleral icterus. No injection or drainage. ENT: Nose without bleeding, purulent drainage. Throat without erythema, tonsillar hypertrophy or exudate. Airway patent. NECK: Trachea midline. Non tender CARDIOVASCULAR: Regular rate and rhythm without murmurs, gallops, or rubs. RESPIRATORY: Clear to auscultation. Breath sounds equal bilaterally. No wheezes, rales, or rhonchi. GASTROINTESTINAL: Abdomen soft, non-tender, nondistended. EXTREMITIES: No edema or joint tenderness. BACK: Nontender without deformity or crepitance. No flank tenderness. NEURO: AOx3. NO focal findings, but he does have generalized weakness. 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 There are no focal findings. He routinely uses a cane, but today is requiring significant help. We did orthostatic vital signs which were normal, but he was very unsteady. Attempt at ambulation trial was very unstead. Call to PT for evaluation. Patient nearly fell despite use of walker and gait belt. It is unclear at this point in time what the etiology of this is, but new antibiotics and pneumonia are surely contributing. Orders Ordered: ED Orders 03/22/19 10:40 Urine Culture Stat Urine Microscopic Stat 03/22/19 10:52 Consult to Physical Therapy Evaluate & Treat Acetaminophen (Tylenol) 650 mg PO Q4H PRN PRN Reason: Pain, Mild (1-3) Albuterol (Ventolin Hfa) 2 puff INH Q4H PRN PRN Reason: shortness of breath Amlodipine Besylate (Norvasc) 5 mg PO DAILY [facility] Calcitriol (Rocaltrol) 0.25 mcg PO DAILY [facility] Citalopram Hydrobromide (Celexa) 40 mg PO BEDTIME [facility] Dextrose (D50w) 25 gm IV PRN PRN PRN Reason: Hypoglycemia Gabapentin (Neurontin) 600 mg PO BID [facility] Gemfibrozil (Lopid) 600 mg PO DAILY [facility] Ceftriaxone Sodium/Dextrose (Rocephin) 1 gm in 50 mls @ 100 mls/hr IV Q12H [facility] Last Admin: 03/22/19 16:46 Dose: 100 mls/hr Documented by: GRACIELA Azithromycin 250 mg/ Dextrose 250 mls @ 250 mls/hr IV Q24H [facility] Stop: 03/26/19 09:00 Last Admin: 03/22/19 17:10 Dose: 250 mls/hr Documented by: GRACIELA Dextrose/Sodium Chloride (Dextrose 5%-0.9% Ns) 1,000 mls @ 125 mls/hr IV CONT [facility] Insulin Aspart (Novolog Flexpen) 0 unit SUBCUT ACHS [facility]; Protocol Last Admin: 03/22/19 17:28 Dose: Not Given Documented by: GRACIELA Metoprolol Tartrate (Lopressor) 50 mg PO DAILY [facility] Naloxone HCl (Narcan) 0.2 mg IV Q2MIN PRN PRN Reason: Opiate Reversal Niacin (Slo-Niacin) (750mg) 750 each PO BEDTIME [facility] Discontinued Medications Glyburide (Glyburide) 5 mg PO BID [facility] Heparin Sodium (Porcine) (Heparin) 7,500 unit SUBCUT Q8HR [facility] Sodium Chloride (Normal Saline 0.9%) 1,000 mls @ 1,000 mls/hr IV BOLUS ONE Stop: 03/22/19 09:05 Last Infusion: 03/22/19 10:37 Dose: 0 mls/hr Documented by: Admin: 03/22/19 08:50 Dose: 1,000 mls/hr Documented by: JACKELYN Sodium Chloride (Normal Saline 0.9%) 1,000 mls @ 100 mls/hr IV CONT [facility] Last Admin: 03/22/19 16:46 Dose: 100 mls/hr Documented by: GRACIELA Non-Formulary Medication (Potassium Citrate) 10 meq PO DAILY [facility] Vital Signs Vital signs: Vital Signs - 8 hr 03/22/19 10:53 03/22/19 11:33 03/22/19 12:00 Pulse Rate 60 59 L Pulse Rate [Orthostatic Lying] 57 L Pulse Rate [Orthostatic Sitting] 69 Pulse Rate [Orthostatic Standing] 73 Respiratory Rate 19 15 Blood Pressure [Left Arm] 164/80 H 147/69 H Blood Pressure [Orthostatic Lying] 148/62 H Blood Pressure [Orthostatic Sitting] 139/67 Blood Pressure [Orthostatic Standing] 142/70 H Pulse Oximetry 100 95 03/22/19 12:35 03/22/19 13:20 03/22/19 14:16 Pulse Rate 59 L 73 70 Pulse Rate [Orthostatic Lying] Pulse Rate [Orthostatic Sitting] Pulse Rate [Orthostatic Standing] Respiratory Rate 17 22 15 Blood Pressure [Left Arm] 159/78 H 170/81 H 171/72 H Blood Pressure [Orthostatic Lying] Blood Pressure [Orthostatic Sitting] Blood Pressure [Orthostatic Standing] Pulse Oximetry 95 98 95 MDM - Weakness Lab Data Result diagrams: 03/22/19 09:08 03/22/19 09:08 Labs: Lab Results 03/22/19 03/22/19 03/22/19 Range/Units 08:45 09:08 09:08 WBC 10.5 (4.5-11.0) X10^3/uL RBC 4.24 L (4.5-5.9) X10^6/uL Hgb 14.2 (13.5-17.5) g/dL Hct 41.2 (41-53) % MCV 97.3 (80-100) fL MCH 33.6 (26-34) PG MCHC 34.5 (30-36) % RDW 13.0 (11.6-14.8) % Plt Count 254 (150-400) X10^3/uL Neut % (Auto) 82.0 H (50-75) % Lymph % (Auto) 7.4 L (25-40) % [place] % (Auto) 9.3 (3-14) % Eos % (Auto) 0.7 L (2-4) % Baso % (Auto) 0.6 (0-2) % Neut # (Auto) 8600 H (8600-4348) /uL Lymph # (Auto) 800 L (9689-7454) /uL [place] # (Auto) 1000 H (0-900) /uL Eos # (Auto) 100 (0-450) /uL Baso # (Auto) 100 (0-100) /uL Sodium 142 (137-145) mmol/L Potassium 3.9 (3.4-5.1) mmol/L Chloride 107 (98-107) mmol/L Carbon Dioxide 25 (22-32) mmol/L BUN 51 H (9-20) mg/dL Creatinine 2.50 H (0.66-1.25) mg/dL Estimated GFR 25.7 L (>60) mL/min BUN/Creatinine Ratio 20.4 (6-22) Glucose 87 (80-110) mg/dL Lactate (0.7-2.1) mmol/L Calcium 9.1 (8.4-10.2) mg/dL Total Creatine Kinase 374 H (55-170) U/L CK-MB (CK-2) 4.48 H (<2.37) ng/mL CK-MB (CK-2) Rel Index 1.2 L (1.5-5.0) % Troponin I < 0.012 (0.01-0.034) ng/mL Procalcitonin (<0.5) ng/mL Urine RBC (0-5/HPF) Urine WBC (0-5/HPF) Urine Bacteria (None) Ur Culture Indicated? Influenza A (RT-PCR) Flu a negative (NEGATIVE) Influenza B (RT-PCR) Flu b negative (NEGATIVE) 03/22/19 03/22/19 03/22/19 Range/Units 09:08 09:08 10:40 WBC (4.5-11.0) X10^3/uL RBC (4.5-5.9) X10^6/uL Hgb (13.5-17.5) g/dL Hct (41-53) % MCV (80-100) fL MCH (26-34) PG MCHC (30-36) % RDW (11.6-14.8) % Plt Count (150-400) X10^3/uL Neut % (Auto) (50-75) % Lymph % (Auto) (25-40) % [place] % (Auto) (3-14) % Eos % (Auto) (2-4) % Baso % (Auto) (0-2) % Neut # (Auto) (0560-0168) /uL Lymph # (Auto) (1422-7059) /uL [place] # (Auto) (0-900) /uL Eos # (Auto) (0-450) /uL Baso # (Auto) (0-100) /uL Sodium (137-145) mmol/L Potassium (3.4-5.1) mmol/L Chloride (98-107) mmol/L Carbon Dioxide (22-32) mmol/L BUN (9-20) mg/dL Creatinine (0.66-1.25) mg/dL Estimated GFR (>60) mL/min BUN/Creatinine Ratio (6-22) Glucose (80-110) mg/dL Lactate 1.1 (0.7-2.1) mmol/L Calcium (8.4-10.2) mg/dL Total Creatine Kinase (55-170) U/L CK-MB (CK-2) (<2.37) ng/mL CK-MB (CK-2) Rel Index (1.5-5.0) % Troponin I (0.01-0.034) ng/mL Procalcitonin 0.21 (<0.5) ng/mL Urine RBC 1-5/hpf (0-5/HPF) Urine WBC 5-10/hpf H (0-5/HPF) Urine Bacteria None seen (None) Ur Culture Indicated? Specimen cultured Influenza A (RT-PCR) (NEGATIVE) Influenza B (RT-PCR) (NEGATIVE) Point of Care Testing Glucose POC 73 Urine Dip Bedside Urine Glucose Negative Bedside Urine Bilirubin - Negative Bedside Urine Ketone - Negative Urine Specific [place] 1.015 Bedside Urine Occult Blood ++ Bedside Urine pH 6.0 Bedside Urine Protein ++ 100 Bedside Urine Urobilinogen +/- 1mg Bedside Urine Nitrite - Negative Bedside Urine Leukocytes + 70 Esterase Discharge Plan Departure Patient Disposition: Admitted as Observation Clinical Impression: Gait disturbance Right lower lobe pneumonia Qualifiers: Pneumonia type: due to unspecified organism Qualified Code(s): J18.9 - Pneumonia, unspecified organism Discharge Date/Time: 03/22/19 16:30 Admit Date/Time: 03/22/19 14:42 Admit Provider: Jon Cee
--- NOTE | 2019-03-22 08:06 | DI.RAD.S_ITS ---
PROCEDURE: XR CHEST 1V INDICATIONS: cough, weakness TECHNIQUE: One view of the chest was acquired. COMPARISON: None. FINDINGS: Surgical changes and devices: None. Lungs and pleura: Subtle parenchymal opacity in the right mid to lower lung zone. Lungs are otherwise clear. No pleural effusions or pneumothorax. Mediastinum: Mediastinal contours appear normal. Heart size is at the upper limits of normal. Bones and chest wall: No suspicious bony lesions. Overlying soft tissues appear unremarkable. IMPRESSION: 1. Subtle right lower lobe parenchymal opacity which may reflect acute pneumonia or chronic pleural plaquing. Consider followup chest x-ray in one month following treatment. 2. Heart size at the upper limits of normal. Dictated by: Emmanuelle Tinoco M.D. on 03/22/2019 at 10:39 Approved by: Emmanuelle Tinoco M.D. on 03/22/2019 at 10:41
[2019-03-22] MEDS: SODIUM CHLORIDE 0.9% 1,000 ML 1000 ML IV (08:50)
--- NOTE | 2019-03-22 08:54 | PC.NURSE ---
Patient reports when he woke his legs and arms are not working well. Pt felt uncoordinated , blood sugar was 59 and gave patient protien bar. Pt reports he feels like things are improving since being here in the ER.
[2019-03-22 09:17] LABS: Influenza A - CEPHEID Flu A NEGATIVE (NEGATIVE); Influenza B - CEPHEID Flu B NEGATIVE (NEGATIVE)
[2019-03-22 09:30] LABS: Add Manual Diff / Slide Review NO; Basophils Absolute Auto 100 /uL (0-100); Basophils Percent Auto 0.6 % (0-2); Eosinophils Absolute Auto 100 /uL (0-450); Eosinophils Percent Auto 0.7 % (2-4); Hematocrit 41.2 % (41-53); Hemoglobin 14.2 g/dL (13.5-17.5); Lymphocytes Absolute Auto 800 /uL (1100-4500); Lymphocytes Percent Auto 7.4 % (25-40); Mean Corpuscular HGB Conc 34.5 % (30-36); Mean Corpuscular Hemoglobin 33.6 PG (26-34); Mean Corpuscular Volume 97.3 fL (80-100); Monocytes Absolute Auto 1000 /uL (0-900); Monocytes Percent Auto 9.3 % (3-14); Neutrophils Absolute Auto 8600 /uL (1500-7000); Platelet Count 254 X10^3/uL (150-400); Red Blood Cell Count 4.24 X10^6/uL (4.5-5.9); White Blood Cell Count 10.5 X10^3/uL (4.5-11.0)
[2019-03-22 09:47] LABS: BUN Creatinine Ratio 20.4 (6-22); Blood Urea Nitrogen 51 mg/dL (9-20); Calcium 9.1 mg/dL (8.4-10.2); Carbon Dioxide 25 mmol/L (22-32); Chloride 107 mmol/L (98-107); Creatine Kinase 374 U/L (55-170); Estimated Glomerular Filt Rate 25.7 mL/min (>60); Glucose 87 mg/dL (80-110); HEMOLYSIS < 15 (0-50); Lactate (Lactic Acid) 1.1 mmol/L (0.7-2.1); Potassium 3.9 mmol/L (3.4-5.1); Sodium 142 mmol/L (137-145)
[2019-03-22 09:56] LABS: Troponin I < 0.012 ng/mL (0.01-0.034)
[2019-03-22 09:57] LABS: Procalcitonin 0.21 ng/mL (<0.5)
[2019-03-22 10:04] LABS: CKMB % Relative Index 1.2 % (1.5-5.0); Creatine Kinase MB 4.48 ng/mL (<2.37)
--- NOTE | 2019-03-22 10:54 | PC.NURSE ---
Pt reports dizziness with sitting and standing. Patient reports bilateral calf pain from cramps. Patient reports he feels generalized weakness and unsteady on his feet compared to his baseline.
[2019-03-22 13:14] LABS: Bacteria Urine None Seen
[2019-03-22 13:28] LABS: Culture Indicated Urine Specimen Cultured; RBC Urine 1-5/HPF (0-5/HPF); WBC Urine 5-10/HPF (0-5/HPF)
--- NOTE | 2019-03-22 13:29 | PC.NURSE ---
Patient had PT consult. Tolerated well. PT recommends patient have walker for home use and outpatient therapy for gait.
--- NOTE | 2019-03-22 14:15 | PT.IIE ---
Medical History (Last Reviewed 03/20/19 @ 10:55 by Kerwin Hummel DO) Acne (Chronic) Ankle pain (Chronic) Chicken pox (Resolved ~1959) Depression (Chronic ~1999) Diabetes mellitus (Chronic ~2005) Foot pain (Chronic) Fractures (Resolved) Headache (Chronic) Kidney disease (Chronic) Kidney stones (Chronic ~2005) Measles (Resolved ~1959) Mumps (Resolved ~1959) Plantar warts (Chronic ~1959) Shoulder pain (Chronic) Physical Therapy Inpatient Evaluation/Re-Eval M1 PT/OT-IP Prior Functional Status Start: 03/22/19 12:41 Freq: Status: Active Protocol: Document 03/22/19 13:33 AW (Rec: 03/22/19 14:15 AW [id number]) Medical Review Prior Functional Status Medical History Reviewed Yes Communication WNL Mobility and Gait Pt states he does not use any assistive device in his home but does admit he stays close to furniture and kapadia for support if needed. He uses a single point cane for all mobility outside his home Activities of Daily Living and IADL's Independent including driving. Prior Functional Level (Other details) Pt reports 6 falls within the past year - at least one injurious. He attributes all falls to lack of sensation secondary to peripheral neuropathy. Social History Household Members spouse Living Arrangements House Number of Floors (Floors) One Floor Number of Stairs To Enter/Railing? Level entry through the garage which pt typically accesses. 2 non-consecutive steps to enter at front door without railing. Home Environment Standard Height Toilet,Tub/ Shower Doors Home Equipment Straight Cane Employment Status Retired Additional Social History Comment Pt lives with his spouse who is employed parts counterman at [employer]. She is out of the house at irregular times; pt drives her to work. M2 PT-IP Current Condition Start: 03/22/19 12:41 Freq: Status: Active Protocol: Document 03/22/19 13:33 AW (Rec: 03/22/19 14:15 AW [id number]) Physical Therapy Current Condition Current Condition Evaluation Date 03/22/19 Treatment Diagnosis acute weakness, cough, difficulty in walking Onset Date 03/22/19 Precautions Other Precautions High risk of falls Weight Bearing Status Weight Bearing Status Full Weight Bearing M3 PT-IP Subjective Start: 03/22/19 12:41 Freq: Status: Active Protocol: Document 03/22/19 13:33 AW (Rec: 03/22/19 14:15 AW [id number]) Subjective Physical Therapy Visit Type Type Initial Evaluation Visit Start Time 12:50 Visit Stop Time 13:25 Total Visit Minutes 35 Notes Pt seen in the ED Physical Therapy Visit Comments Patient Comments Pt feels his strength is returning since this morning when he had little control over his extremities. Therapy Pain Assessment Pain When Pain Assessed During Mobility Pain Present Pain Present Pain Reported Location bilateral calves Scale Used not quantified Description Burning,Cramping Pain Management Techniques Distraction M4 PT-IP Mobility and Gait Start: 03/22/19 12:41 Freq: Status: Active Protocol: Document 03/22/19 13:33 AW (Rec: 03/22/19 14:15 AW [id number]) PT-Bed Mobility Assessment Supine to Sit Supine to Sit Standby Assistance Sit to Supine Sit to Supine Standby Assistance Scooting Scooting to Edge of Bed Standby Assistance PT-Transfer Assessment Sit to and From Stand Sit to and from Stand Contact Guard Assistance Equipment Transfer Assistive Device Gait Belt,Front Wheeled Walker Orthotic/Prosthetic Devices or Brace: No Transfers Transfer Destination Bed Transfer Technique pt ambulated without AD Transfer Ability Level of Assist Standby Assistance,Use of Upper Extremities Comments Mobility Comments Pt was encountered reclined in the [facility]. He rolled to his right and completed supine to sit SBA but had (+) loss of balance posteriorly upon immediate sitting EOB from which he was able to recover without assist. He reported increasing lightheadedness with sitting. BP was assessed at 176/71 which was consistent with recent readings. Once symptoms abated, pt stood using FWW CGA without increase in lightheadedness. Pt then ambulated with FWW SBA in the room and out in the corey ~20 feet. Without the walker, pt required close SBA and occasional CGA as he ambulated an additional 150 feet around the unit. With dynamic balance challenges including head turns and changes in gait speed, pt experienced 2 (+) LOB requiring min assist to recover. He was markedly unsteady without assistive device. Pt returned to the [facility] and was able to complete sit to supine SBA. BP was reassessed at 117/50 but pt denied any symptoms. BP returned to 170/81 after 5 minutes in reclined position. Gait Assessment Gait Gait Assistance Required: Standby Assistance,Contact Guard Assist,Minimum Assistance Distance (Feet) 175 Able to Maintain Weight Bearing Status Yes During Gait Assistive Devices Assistive Device None,Gait Belt,Front Wheeled Walker Orthotic/Prosthetic Devices or Brace: No Gait Deviations General Gait Pattern Decreased Stride Length, Decreased Feet Clearance,Wide Based Gait Factors Limiting Gait Function Factors Limiting Gait Function Decreased Activity Tolerance, Decreased Sensation,Decreased Strength,Pain,Poor Balance, Poor Safety Awareness Comments Gait Comments See mobility comments. Pt's balance was challenged during gait without assistive device, requiring min assist to recover from loss of balance twice. Stair Climbing Assessment Comments Stair Climbing Comments Not assessed. PT-Balance Assessment Sitting Balance and Reactions Static Sitting Balance Ability Fair Dynamic Sitting Balance Ability Fair Standing Balance and Reactions Static Standing Balance Ability Fair Dynamic Standing Balance Ability Poor Device Used none Balance Tests Romberg 10 seconds in narrow stance, eyes open Comments Other Balance Tests/Deviations/Treatment Pt had loss of balance : posteriorly upon initial sitting. He demonstrated retropulsive tendency in initial standing and in dynamic gait. He was able to stand with narrow base of support only 10 seconds before requiring UE support on the walker. Functional Assessments Other Functional Tests Performed Modified (4-item) DGI score of 5/12 without assistive device - gait level surface: 1 - changes in gait speed: 1 - gait with horizontal head turns: 1 - gait with vertical head turns: 2 M5 PT-IP Objective Assessments Start: 03/22/19 12:41 Freq: Status: Active Protocol: Document 03/22/19 13:33 AW (Rec: 03/22/19 14:15 AW [id number]) Orientation Orientation/Cognition Level of Alertness Alert Orientation Name,Day of Week,Place, Situation Language Function Ability No Deficits Noted Safety Awareness Decreased Safety Awareness Comments Pt with decreased safety awareness evidenced by choice of no assistive device at home . However, pt is open to increased use of SPC or to new use of FWW if necessary. Gross Range of Motion Upper Extremity ROM Assessment Within Functional Limits Lower Extremity ROM Assessment Within Functional Limits Strength Upper Extremity Strength Assessment Within Functional Limits Lower Extremity Strength Assessment Bilaterally Impaired Hip 4-/5 Knee 4/5 Ankle 4+/5 Comments Strength Comments Strength symmetrical in all quadrants. Coordination Assessment Gross Coordination Gross Coordination Impaired Assessment Finger to Nose Test Minimal Impairment Pronation/Supination Test Normal Performance Coordination Comments Pt demonstrated slight dysmetria with closed eyes finger to nose and slight intention tremor with finger gwyn eyes open. Sensation Assessment Sensation Gross Sensation Right UE Impaired,Left UE Impaired,Right LE Impaired, Left LE Impaired Light Touch Absent Sensation Description Numbness Comments Sensation Comments Pt has peripheral neuropathy with absent sensation to bilateral feet in stocking distribution. Hands are also affected but less so than feet . Muscle Tone Muscle Tone WNL Yes M6 PT-IP Treatment Start: 03/22/19 12:41 Freq: Status: Active Protocol: Document 03/22/19 13:33 AW (Rec: 03/22/19 14:15 AW [id number]) Physical Therapy Treatment Other Treatments Other Treatment Performed Pt educated on role of PT and possible need for increased support during gait including more frequent use of SPC, potential need for FWW. M7 PT-IP Assessment and Plan Start: 03/22/19 12:41 Freq: Status: Active Protocol: Document 03/22/19 13:33 AW (Rec: 03/22/19 14:15 AW [id number]) PT Summary Assessment and Plan Potential Rehabilitation Potential Good Status of Condition at Evaluation Evolving Summary Impairments Pain,Strength,Balance, Coordination,Sensation,Bed Mobility,Transfers,Gait Assessment Summary Giovanni is a 68 yo man seen for PT evaluation at the request of the Emergency Department. He was brought in with acute weakness which he states is resolving over the course of the day. He also stated he lost control of his bowels at home but denied perineal numbness. At baseline, he ambulates without AD in his home and with a SPC out in the community. He states he could walk as far as he wanted to with a cane. On evaluation, he presents with decreased B LE strength and with significant balance impairments as well as chronic sensation deficits to bilateral feet. Sitting balance was challenged, he was unable to stand longer than 10 seconds with narrow base of support, and modified DGI score was 5/12 (without AD) which indicates a high risk of falling, consistent with pt report of 6 falls over the past year. If this patient is admitted, he will be followed by PT to address LE strength, balance, and prescription of appropriate assistive device. If he is discharged from ED, pt would benefit from a FWW for home use and a referral for outpatient PT to address these deficits. Goals Bed Mobility Goal Independent Transfer Goal Independent,Cane Gait Goal Independent,Cane Gait Distance 400 Other Goals - up/down platform step x 2 using SPC independent for safe entry to the home Days to Meet Goals 5 Frequency of Treatment Frequency Of Treatment Once a Day Treatment Plan Physical Therapy Treatment Plan Bed Mobility Training,Transfer Training,Gait Training, Therapeutic Exercise,Balance Retraining,Discharge Planning, Neuromuscular Re-ed Other Recommendations and Next Treatment bed mobility, sitting balance, Focus gait training for AD prescription, stairs Recommendations To Nursing Amount of Assist Needed Standby Assistance,1 Person Assist Discharge Recommendations PT Discharge Recommendations Home with Assistance, Outpatient PT Equipment Needed for Home Before may benefit from FWW for home Discharge use
[2019-03-22] MEDS: SODIUM CHLORIDE 0.9% 1,000 ML 100 ML IV (16:46)
[2019-03-22] MEDS: CEFTRIAXONE 1 GM/50 ML FROZ.PIGGY IV (16:46)
[2019-03-22] MEDS: AZITHROMYCIN 250 MG in DEXTROSE 5% IN WATER 250 ML IV (17:10)
--- NOTE | 2019-03-22 17:43 | PC.ADMIT ---
[email or web address] Admission Note: The patient,Giovanni Mauricio,68 y/o, was given written information regarding hospital policies, unit procedures and contact persons. Patient's smoking status: Former smoker. Vital Signs - 8 hr 03/22/19 10:00 03/22/19 10:53 03/22/19 11:33 Temperature Pulse Rate 58 L 60 Pulse Rate [Orthostatic Lying] 57 L Pulse Rate [Orthostatic Sitting] 69 Pulse Rate [Orthostatic Standing] 73 Respiratory Rate 17 19 Blood Pressure Blood Pressure [Left Arm] 154/70 H 164/80 H Blood Pressure [Orthostatic Lying] 148/62 H Blood Pressure [Orthostatic Sitting] 139/67 Blood Pressure [Orthostatic Standing] 142/70 H Pulse Oximetry 94 100 03/22/19 12:00 03/22/19 12:35 03/22/19 13:20 Temperature Pulse Rate 59 L 59 L 73 Pulse Rate [Orthostatic Lying] Pulse Rate [Orthostatic Sitting] Pulse Rate [Orthostatic Standing] Respiratory Rate 15 17 22 Blood Pressure Blood Pressure [Left Arm] 147/69 H 159/78 H 170/81 H Blood Pressure [Orthostatic Lying] Blood Pressure [Orthostatic Sitting] Blood Pressure [Orthostatic Standing] Pulse Oximetry 95 95 98 03/22/19 14:16 03/22/19 16:04 03/22/19 16:49 Temperature 97.7 F Pulse Rate 70 59 L 68 Pulse Rate [Orthostatic Lying] Pulse Rate [Orthostatic Sitting] Pulse Rate [Orthostatic Standing] Respiratory Rate 15 23 20 Blood Pressure 144/85 H Blood Pressure [Left Arm] 171/72 H 149/65 H Blood Pressure [Orthostatic Lying] Blood Pressure [Orthostatic Sitting] Blood Pressure [Orthostatic Standing] Pulse Oximetry 95 95 97 Patient admitted to room 223 from ED due to SOB, cough, weakness x 1 week. Awake, alert, and pleasant. Oriented to room, environment, and plan of care. High risk precautions initiated, call light within reach. and daughter at bedside providing supportive care
[2019-03-22 18:09] LABS: BUN Creatinine Ratio 20.8 (6-22); Blood Urea Nitrogen 50 mg/dL (9-20); Calcium 9.3 mg/dL (8.4-10.2); Carbon Dioxide 24 mmol/L (22-32); Chloride 109 mmol/L (98-107); Creatine Kinase 663 U/L (55-170); HEMOLYSIS < 15 (0-50); Potassium 3.9 mmol/L (3.4-5.1); Sodium 143 mmol/L (137-145)
--- NOTE | 2019-03-22 18:13 | PM.HP.1 ---
History of Present Illness History of Present Illness Date Patient Seen: 03/22/19 Time Patient Seen: 18:13 Chief complaint: Respiratory infection Narrative: Pneumonia. Patient admitted through the ER this morning. Patient has been sick with a cough for proxy weak cough is been relatively productive intermittently with dark mucus and then have lightened up during the course of the week. He has had no bloody 10 mucus. He has had fever and chills but no actual temperature cousin has doesn't have a thermometer. No URI symptoms otherwise. Over the week he has gotten generally weaker. Today he could not get out of bed because is weakness he was brought to the emergency room for further evaluation. He was seen in the office yesterday for his cough felt to have an upper respiratory infection treated with clear erythromycin and albuterol. During the course of the day he gets seen got worse hence he came to the emergency room. Other medical problems include wnh-[id number] diabetes. His A1cs have been running in the mid 5.5 range. We had been considering stopping his overall hypoglycemics. He has not taken any of his medications since yesterday morning. He has chronic kidney injury stage IV. Seeing a taker off braker machine. Creatinine most recently has been approximately 3.0. GFR has been running approximately 20. Other medical problems include hypertension, depression, peripheral neuropathy, hyperlipidemia, hypertension,. Patient History Medical History Acne (Chronic) Ankle pain (Chronic) Chicken pox (Resolved ~1959) Depression (Chronic ~1999) Diabetes mellitus (Chronic ~2005) Foot pain (Chronic) Fractures (Resolved) Headache (Chronic) Kidney disease (Chronic) Kidney stones (Chronic ~2005) Measles (Resolved ~1959) Mumps (Resolved ~1959) Plantar warts (Chronic ~1959) Shoulder pain (Chronic) Family & Social History Family History Mother Age: 86 Cerebrovascular accident (CVA), unspecified mechanism Social History: household members spouse Prior Living Arrangements House Safety & Behavioral: Feels Safe in Current Yes Environment Been Physically Hurt or No Threatened By a Person Suicidal Ideation Description None Suicide Plan Description No Plan Tobacco & Substance use: Smoking Status Former smoker alcohol intake former Substance Use Type does not use Meds Home Medications and Allergies Home Medications Medication Instructions Recorded Confirmed Type acetaminophen 650 mg PO PRN PRN #0 06/13/17 01/09/20 History calcitriol 1 cap PO DAILY 08/25/17 03/22/19 History niacin 750 mg tablet,extended 750 mg PO BEDTIME #90 tab 03/21/18 03/22/19 Rx release metoprolol tartrate 50 mg PO DAILY #90 tab 11/03/18 03/22/19 Rx albuterol sulfate 90 mcg/actuation 2 puff INHALATION Q4-6H PRN #8.5 03/20/19 03/22/19 Rx aerosol inhaler gram clarithromycin 500 mg tablet 500 mg PO BID #14 tab 03/20/19 03/22/19 Rx amlodipine [Norvasc] 5 mg PO DAILY 03/22/19 03/22/19 History citalopram 40 mg PO BEDTIME 03/22/19 03/22/19 History gabapentin 600 mg PO BID 03/22/19 03/22/19 History gemfibrozil 600 mg PO DAILY 03/22/19 03/22/19 History glyburide 5 mg PO BID 03/22/19 03/22/19 History potassium citrate 10 meq PO DAILY 03/22/19 03/22/19 History simvastatin 20 mg PO QPM 03/22/19 03/22/19 History Allergies Allergy/AdvReac Type Severity Reaction Status Date / Time metformin AdvReac Intermediate TOXIC TO Verified 03/22/19 08:14 HIS KIDNEY Review of Systems Review of Systems ROS Unobtainable: All systems reviewed & are unremarkable except as noted in HPI and below Exam Vital Signs (past 8 hours): - 03/22/19 10:53 03/22/19 11:33 03/22/19 12:00 Temperature Pulse Rate 60 59 L Pulse Rate [Orthostatic Lying] 57 L Pulse Rate [Orthostatic Sitting] 69 Pulse Rate [Orthostatic Standing] 73 Respiratory Rate 19 15 Blood Pressure Blood Pressure [Left Arm] 164/80 H 147/69 H Blood Pressure [Orthostatic Lying] 148/62 H Blood Pressure [Orthostatic Sitting] 139/67 Blood Pressure [Orthostatic Standing] 142/70 H Pulse Oximetry 100 95 03/22/19 12:35 03/22/19 13:20 03/22/19 14:16 Temperature Pulse Rate 59 L 73 70 Pulse Rate [Orthostatic Lying] Pulse Rate [Orthostatic Sitting] Pulse Rate [Orthostatic Standing] Respiratory Rate 17 22 15 Blood Pressure Blood Pressure [Left Arm] 159/78 H 170/81 H 171/72 H Blood Pressure [Orthostatic Lying] Blood Pressure [Orthostatic Sitting] Blood Pressure [Orthostatic Standing] Pulse Oximetry 95 98 95 03/22/19 16:04 03/22/19 16:49 Temperature 97.7 F Pulse Rate 59 L 68 Pulse Rate [Orthostatic Lying] Pulse Rate [Orthostatic Sitting] Pulse Rate [Orthostatic Standing] Respiratory Rate 23 20 Blood Pressure 144/85 H Blood Pressure [Left Arm] 149/65 H Blood Pressure [Orthostatic Lying] Blood Pressure [Orthostatic Sitting] Blood Pressure [Orthostatic Standing] Pulse Oximetry 95 97 Oxygen Delivery Method Room Air Narrative Exam Narrative: Gen.: Patient is resting quietly in his hospital bed. Having finished dinner except for the proxy. He appears in no distress. He is coughing relatively productively. Skin: Warm well perfused. No prominent lesions. Nonicteric. HEENT: PERRL., normal EOM, external ears canals TMs normal, nasal mucosa normal and midline septum, oropharynx without lesions. Neck: Trachea midline. Thyroid nontender and not enlarged. Carotids without bruits. No lymphadenopathy Back: No obvious deformity or tenderness. Chest: Clear to P&A. Symmetric. Chest exam finds decreased breath sounds throughout is coughing a relatively productively sounding. He has upper airway rhonchi CV: RRR no murmur or gallop. No JVD. Abdomen: No masses bruits tenderness or visceromegaly. Neuro: Cranial nerves II through XII grossly intact. Sensory and motor exams intact. Gait normal. Mental status: Intact for screening Extremities: No cyanosis clubbing or edema Musculoskeletal: No gross deformities no formal strength testing was performed. Patient remained in bed Lymphatics: Negative for lymphadenopathy, supraclavicular axillary or inguinal Objective Labs Result Diagrams: 03/22/19 09:08 03/22/19 09:08 Labs: Laboratory Results - last 24 hr 03/22/19 03/22/19 03/22/19 08:45 09:08 09:08 WBC 10.5 RBC 4.24 L Hgb 14.2 Hct 41.2 MCV 97.3 MCH 33.6 MCHC 34.5 RDW 13.0 Plt Count 254 Neut % (Auto) 82.0 H Lymph % (Auto) 7.4 L Vernon % (Auto) 9.3 Eos % (Auto) 0.7 L Baso % (Auto) 0.6 Neut # (Auto) 8600 H Lymph # (Auto) 800 L Vernon # (Auto) 1000 H Eos # (Auto) 100 Baso # (Auto) 100 Sodium 142 Potassium 3.9 Chloride 107 Carbon Dioxide 25 BUN 51 H Creatinine 2.50 H Estimated GFR 25.7 L BUN/Creatinine Ratio 20.4 Glucose 87 Lactate Calcium 9.1 Total Creatine Kinase 374 H CK-MB (CK-2) 4.48 H CK-MB (CK-2) Rel Index 1.2 L Troponin I < 0.012 Procalcitonin Urine RBC Urine WBC Urine Bacteria Ur Culture Indicated? Influenza A (RT-PCR) Flu a negative Influenza B (RT-PCR) Flu b negative 03/22/19 03/22/19 03/22/19 09:08 09:08 10:40 WBC RBC Hgb Hct MCV MCH MCHC RDW Plt Count Neut % (Auto) Lymph % (Auto) Vernon % (Auto) Eos % (Auto) Baso % (Auto) Neut # (Auto) Lymph # (Auto) Vernon # (Auto) Eos # (Auto) Baso # (Auto) Sodium Potassium Chloride Carbon Dioxide BUN Creatinine Estimated GFR BUN/Creatinine Ratio Glucose Lactate 1.1 Calcium Total Creatine Kinase CK-MB (CK-2) CK-MB (CK-2) Rel Index Troponin I Procalcitonin 0.21 Urine RBC 1-5/hpf Urine WBC 5-10/hpf H Urine Bacteria None seen Ur Culture Indicated? Specimen cultured Influenza A (RT-PCR) Influenza B (RT-PCR) 03/22/19 17:35 WBC RBC Hgb Hct MCV MCH MCHC RDW Plt Count Neut % (Auto) Lymph % (Auto) Vernon % (Auto) Eos % (Auto) Baso % (Auto) Neut # (Auto) Lymph # (Auto) Vernon # (Auto) Eos # (Auto) Baso # (Auto) Sodium Potassium Chloride Carbon Dioxide BUN Creatinine Estimated GFR BUN/Creatinine Ratio Glucose Lactate Calcium Total Creatine Kinase 663 H D CK-MB (CK-2) CK-MB (CK-2) Rel Index Troponin I Procalcitonin Urine RBC Urine WBC Urine Bacteria Ur Culture Indicated? Influenza A (RT-PCR) Influenza B (RT-PCR) labs above noted. Of significance normal white blood cell count, normal lactate, normal procalcitonin,. Of significance he has elevated total creatine kinase and a follow-up 1 has increased. Chronic kidney injury stage IV stable creatinine 2.5 is about as good as he gets. Chest x-ray consistent with right lower lobe pneumonia Assessment & Plan Assessment & Plan narrative: 1. He required right lower lobe pneumonia. Will treat with azithromycin and ceftriaxone as per protocol. Will discontinue the clarithymycin 2. Patient generalized weakness. Of significance he has elevated creatine kinase that increased the. This may be a reaction to the clear throw mycin. Hence is discontinued. We will hydrate him anticipate improvement over the next day or 2. This could easily explain his weakness and general instability. 3. Chronic kidney injury stable stage IV. Creatinine 2.5 is best it's been in a while. Patient sees taker off braker machine on a regular basis hand has been stable. 4. Type 2 diabetes that has been well controlled. Patient had blood sugars here this evening when I visited him of 55. Apparently had 1 at 30 earlier today. We'll discontinue his glyburide and may discontinue it totally as we have discussed this in the past. Will switch is IV fluids to D5 normal saline. 5. Patient with hyperlipidemia treated with simvastatin and niacin and gemfibrozil. Will discontinue the simvastatin for now and may resume at much later as an outpatient. 6. History of hypertension stable. 7. History of depression stable. 8. Generalized arthralgia and arthritis has needs has been bother him for years. Will benefit physical therapy and occupational reassessment. Apparently someone recommended front wheel walker which will reassess that in the morning. 9. Patient to be seen by Dr. Haddad tomorrow as I will be out of town Quality VTE Deep Vein Thrombosis/Pulmonary Embolism Present on Admission: No
[2019-03-22 18:29] LABS: Glucose 43 mg/dL (80-110)
[2019-03-22] MEDS: DEXTROSE 5%-0.9% NS 1,000 ML 125 ML IV (18:42)
[2019-03-22 18:47] LABS: CKMB % Relative Index 1.3 % (1.5-5.0); Creatine Kinase MB 8.61 ng/mL (<2.37)
--- NOTE | 2019-03-22 18:50 | PC.NURSE ---
Addendum entered by Lauren Guo R.N. 03/22/19 21:35: BG 98 mg/dl at 2110, monitoring for s/sx of hypoglycemia. Original Note: Bisi shift Event note: Patient awake and alert, BG ckeck 30 mg/dl, recheck 29 mg/dl. Patient sitting up, eating dinner, and asymptomatic. Order for serum Glucose Stat. Dr. Cee at bedside, BG rechecked 55 mg/dl, snack and OJ admin. New orders obtained to discontinue PO diabetic med (glyburide) and IVF change to D5 0.9. Will continue to monitor patient closely. Remains asymptomatic, interacting with family at bedside.
[2019-03-22] MEDS: CITALOPRAM 20 MG TABLET 40 MG PO (20:02)
[2019-03-22] MEDS: GABAPENTIN 300 MG CAPSULE 600 MG PO (20:02)
[2019-03-23 03:29] VITALS: BP 160/81; PULSE 62; RESP 16; TEMP 36.8; O2SAT 92
[2019-03-23] MEDS: DEXTROSE 5%-0.9% NS 1,000 ML 125 ML IV (03:30)
[2019-03-23] MEDS: CEFTRIAXONE 1 GM/50 ML FROZ.PIGGY IV ×2 (03:30→16:10)
[2019-03-23 06:05] LABS: Add Manual Diff / Slide Review NO; Basophils Absolute Auto 100 /uL (0-100); Basophils Percent Auto 0.7 % (0-2); Eosinophils Absolute Auto 300 /uL (0-450); Eosinophils Percent Auto 3.4 % (2-4); Hemoglobin 13.3 g/dL (13.5-17.5); Lymphocytes Absolute Auto 1300 /uL (1100-4500); Lymphocytes Percent Auto 14.9 % (25-40); Mean Corpuscular Hemoglobin 33.7 PG (26-34); Monocytes Absolute Auto 1000 /uL (0-900); Monocytes Percent Auto 10.6 % (3-14); Neutrophils Absolute Auto 6300 /uL (1500-7000); Neutrophils Percent Auto 70.4 % (50-75); Platelet Count 267 X10^3/uL (150-400); Red Blood Cell Count 3.94 X10^6/uL (4.5-5.9); Red Cell Distribution Width 13.3 % (11.6-14.8)
[2019-03-23 06:09] LABS: Creatine Kinase 558 U/L (55-170)
[2019-03-23 06:12] LABS: BUN Creatinine Ratio 18.8 (6-22); Blood Urea Nitrogen 47 mg/dL (9-20); Calcium 8.8 mg/dL (8.4-10.2); Carbon Dioxide 24 mmol/L (22-32); Chloride 107 mmol/L (98-107); Estimated Glomerular Filt Rate 25.7 mL/min (>60); Glucose 109 mg/dL (80-110); HEMOLYSIS 15 (0-50); Potassium 4.3 mmol/L (3.4-5.1); Sodium 141 mmol/L (137-145)
[2019-03-23 07:46] VITALS: BP 143/81; PULSE 65; RESP 16; TEMP 36.9; O2SAT 95
[2019-03-23] MEDS: GEMFIBROZIL 600 MG TABLET PO (07:59)
[2019-03-23] MEDS: AMLODIPINE 5 MG TABLET PO (07:59)
[2019-03-23] MEDS: CALCITRIOL 0.25 MCG CAPSULE PO (07:59)
[2019-03-23] MEDS: METOPROLOL IR 50 MG TABLET PO (07:59)
[2019-03-23] MEDS: GABAPENTIN 300 MG CAPSULE 600 MG PO ×2 (07:59→21:27)
--- NOTE | 2019-03-23 08:42 | P.PN_ITS ---
Subjective Subjective Date Patient Seen: 03/23/19 Time Patient Seen: 07:43 Interval history: Patient is resting and coughing. Complains of sore throat and asking for throat lozenge. Tells me that the incentive spirometer makes him cough. Does not have flutter valve. No additional complaints. Exam Vital Signs (past 8 hours): - 03/23/19 03:29 03/23/19 07:46 Temperature 98.3 F 98.4 F Pulse Rate 62 65 Respiratory Rate 16 16 Blood Pressure 160/81 H 143/81 H Pulse Oximetry 92 95 Oxygen Delivery Method Room Air Oxygen Flow Rate 0 Narrative Exam Narrative: Gen.: Patient is resting quietly in his hospital bed. He is coughing relatively productively. Skin: Warm well perfused. No prominent lesions. Nonicteric. HEENT: PERRL., normal EOM, nasal mucosa normal and midline septum, oropharynx without lesions where I can see, reddened, crowded posterior oral pharynx is dry. Chest: breath sounds throughout is coughing a relatively productively sounding, coarse posteriorly CV: RRR no murmur or gallop. No JVD. Abdomen: No masses bruits tenderness. Mental status: Intact for screening Objective Labs Result Diagrams: 03/23/19 05:25 03/23/19 05:25 Labs: Laboratory Results - last 24 hr 03/22/19 03/22/19 03/22/19 08:45 09:08 09:08 WBC 10.5 RBC 4.24 L Hgb 14.2 Hct 41.2 MCV 97.3 MCH 33.6 MCHC 34.5 RDW 13.0 Plt Count 254 Neut % (Auto) 82.0 H Lymph % (Auto) 7.4 L [place] % (Auto) 9.3 Eos % (Auto) 0.7 L Baso % (Auto) 0.6 Neut # (Auto) 8600 H Lymph # (Auto) 800 L [place] # (Auto) 1000 H Eos # (Auto) 100 Baso # (Auto) 100 Sodium 142 Potassium 3.9 Chloride 107 Carbon Dioxide 25 BUN 51 H Creatinine 2.50 H Estimated GFR 25.7 L BUN/Creatinine Ratio 20.4 Glucose 87 Lactate Calcium 9.1 Total Creatine Kinase 374 H CK-MB (CK-2) 4.48 H CK-MB (CK-2) Rel Index 1.2 L Troponin I < 0.012 Procalcitonin Urine RBC Urine WBC Urine Bacteria Ur Culture Indicated? Influenza A (RT-PCR) Flu a negative Influenza B (RT-PCR) Flu b negative 03/22/19 03/22/19 03/22/19 09:08 09:08 10:40 WBC RBC Hgb Hct MCV MCH MCHC RDW Plt Count Neut % (Auto) Lymph % (Auto) [place] % (Auto) Eos % (Auto) Baso % (Auto) Neut # (Auto) Lymph # (Auto) [place] # (Auto) Eos # (Auto) Baso # (Auto) Sodium Potassium Chloride Carbon Dioxide BUN Creatinine Estimated GFR BUN/Creatinine Ratio Glucose Lactate 1.1 Calcium Total Creatine Kinase CK-MB (CK-2) CK-MB (CK-2) Rel Index Troponin I Procalcitonin 0.21 Urine RBC 1-5/hpf Urine WBC 5-10/hpf H Urine Bacteria None seen Ur Culture Indicated? Specimen cultured Influenza A (RT-PCR) Influenza B (RT-PCR) 03/22/19 03/22/19 03/23/19 17:35 17:35 05:25 WBC 9.0 RBC 3.94 L Hgb 13.3 L Hct 39.0 L MCV 99.0 MCH 33.7 MCHC 34.0 RDW 13.3 Plt Count 267 Neut % (Auto) 70.4 Lymph % (Auto) 14.9 L [place] % (Auto) 10.6 Eos % (Auto) 3.4 Baso % (Auto) 0.7 Neut # (Auto) 6300 Lymph # (Auto) 1300 [place] # (Auto) 1000 H Eos # (Auto) 300 Baso # (Auto) 100 Sodium 143 Potassium 3.9 Chloride 109 H Carbon Dioxide 24 BUN 50 H Creatinine 2.40 H Estimated GFR 27.0 L BUN/Creatinine Ratio 20.8 Glucose 43 L* Lactate Calcium 9.3 Total Creatine Kinase 663 H D CK-MB (CK-2) 8.61 H D CK-MB (CK-2) Rel Index 1.3 L Troponin I Procalcitonin Urine RBC Urine WBC Urine Bacteria Ur Culture Indicated? Influenza A (RT-PCR) Influenza B (RT-PCR) 03/23/19 03/23/19 05:25 05:25 WBC RBC Hgb Hct MCV MCH MCHC RDW Plt Count Neut % (Auto) Lymph % (Auto) [place] % (Auto) Eos % (Auto) Baso % (Auto) Neut # (Auto) Lymph # (Auto) [place] # (Auto) Eos # (Auto) Baso # (Auto) Sodium 141 Potassium 4.3 Chloride 107 Carbon Dioxide 24 BUN 47 H Creatinine 2.50 H Estimated GFR 25.7 L BUN/Creatinine Ratio 18.8 Glucose 109 Lactate Calcium 8.8 Total Creatine Kinase 558 H CK-MB (CK-2) CK-MB (CK-2) Rel Index Troponin I Procalcitonin Urine RBC Urine WBC Urine Bacteria Ur Culture Indicated? Influenza A (RT-PCR) Influenza B (RT-PCR) Assessment & Plan Assessment & Plan narrative: 1. Right lower lobe pneumonia. Will treat with azithromycin and ceftriaxone as per protocol today is day #2. 2. Patient generalized weakness. Of significance he has elevated creatine kinase which has been improving overnight. This could easily explain his weakness and general instability. Will decrease his fluids today and follow creatinine. PT/OT evaluation. 3. Chronic kidney injury stable stage IV. Creatinine 2.5 is best it's been in a while. Patient sees soft iron inspector on a regular basis and has been stable. 4. Type 2 diabetes that has been well controlled. Patient had low blood sugars last night likely from decreased PO and glyburide on board. We'll discontinue his glyburide and may discontinue it totally as Dr. Cee has discussed this in the past. 5. Patient with hyperlipidemia treated with simvastatin and niacin and gemfibrozil. Will discontinue the simvastatin for now and may resume at much later as an outpatient. 6. History of hypertension stable. 7. History of depression stable. 8. Generalized arthralgia and arthritis has knees have bothered him for years. Will benefit physical therapy and occupational reassessment. Apparently someone recommended front wheel walker which will reassess that in the morning. 9. Patient to be seen by Dr. Feldman tomorrow as I will be out of town Code status: Full code DVT prophylaxis: SCD's Patient is improving slowly and will require an additional 24-48 hours of care while his respiratory and ambulatory status improve. Greater than 35 minutes was spent evaluating the patient on the floor, including examining the patient, discussing clinical course with clinical and nursing staff, reviewing clinical course in the computer, preparing documentation and writing orders for continued management of care, discussing status with family as appropriate, reviewing plans for the next 24 hours with both patient, family and nursing staff as appropriate. Quality VTE Deep Vein Thrombosis/Pulmonary Embolism Present on Admission: No
[2019-03-23] MEDS: SODIUM CHLORIDE 0.9% 1,000 ML 75 ML IV (10:44)
[2019-03-23 12:00] VITALS: BP 145/70; PULSE 58; RESP 16; TEMP 36.7; O2SAT 95
--- NOTE | 2019-03-23 12:34 | OT.IP.EVAL ---
Past Medical History (Last Reviewed 03/22/19 @ 18:17 by Jon Cee MD) Acne (Chronic) Ankle pain (Chronic) Chicken pox (Resolved ~1959) Depression (Chronic ~1999) Diabetes mellitus (Chronic ~2005) Foot pain (Chronic) Fractures (Resolved) Headache (Chronic) Kidney disease (Chronic) Kidney stones (Chronic ~2005) Measles (Resolved ~1959) Mumps (Resolved ~1959) Plantar warts (Chronic ~1959) Shoulder pain (Chronic) Occupational Therapy Inpatient Evaluation/Re-Eval M1 PT/OT-IP Prior Functional Status Start: 03/22/19 12:41 Freq: Status: Active Protocol: Document 03/23/19 12:39 CGR (Rec: 03/23/19 12:55 CGR [id number]) Medical Review Prior Functional Status Medical History Reviewed Yes Communication WNL Mobility and Gait Pt states he does not use any assistive device in his home but does admit he stays close to furniture and kapadia for support if needed. He uses a single point cane for all mobility outside his home Activities of Daily Living and IADL's Independent including driving. Prior Functional Level (Other details) Pt reports 6 falls within the past year - at least one injurious. He attributes all falls to lack of sensation secondary to peripheral neuropathy. Social History Household Members spouse Living Arrangements House Number of Floors (Floors) One Floor Number of Stairs To Enter/Railing? No stairs to enter Home Environment Standard Height Toilet,Tub/ Shower Doors Home Equipment Straight Cane Employment Status Retired Additional Social History Comment Pt has a daughter that also lives near by. M2 OT-IP Current Condition Start: 03/23/19 12:39 Freq: Status: Active Protocol: Document 03/23/19 12:39 CGR (Rec: 03/23/19 12:55 CGR [id number]) Occupational Therapy Current Condition Current Condition Evaluation Date 03/23/19 Treatment Diagnosis PNA, generalized weakness. M3 OT- IP Subjective and Pain Start: 03/23/19 12:39 Freq: Status: Active Protocol: Document 03/23/19 12:39 CGR (Rec: 03/23/19 12:55 CGR [id number]) OT- Subjective Occupational Therapy Visit Type Type Initial Evaluation Visit Start Time 11:55 Visit Stop Time 12:34 Total Visit Minutes 39 Notes Pt's daughter and present throughout session. Occupational Therapy Visit Comments Patient Comments I am feeling much better. OT Pain Assessment Pain When Pain Assessed At Rest Pain Present Pain Present Denied Pain M4 OT- IP ADL's Start: 03/23/19 12:39 Freq: Status: Active Protocol: Document 03/23/19 12:39 CGR (Rec: 03/23/19 12:55 CGR [id number]) OT [id number]-[id number] General Evaluation Self-Feeding Ability Independent Comments OT Self-Feeding Comments Pt eating lunch upon OT exit OT ADL-Grooming General Evaluation Grooming Ability Independent Areas Needing Assistance Face Washing Comments OT Grooming Comments Standing at sink OT ADL-Oral Care General Eval Oral Care Ability Independent Areas of Assistance Brushing Teeth Comments Oral Care Comments Standing at sink OT ADL-Dressing General Eval Upper Body Dressing Ability Independent Lower Body Dressing Ability Independent Comments OT Dressing Comments Pt was able to do LB dressing without assist by sitting on the edge of the bed. educated on hip kit availablity if he had more difficulty with dressing later on. OT ADL-Toileting General Evaluation Toileting Ability Independent Comments OT Toileting Comments without use of grab bars in bathroom OT ADL-Bathing Comments OT Bathing Comments Not performed in this session. M5 OT- IP IADL's Start: 03/23/19 12:39 Freq: Status: Active Protocol: Document 03/23/19 12:39 CGR (Rec: 03/23/19 12:55 CGR [id number]) OT-Instrumental Activities of Daily Living Deficits IADL Deficits Identified No Deficits Home Safety Awareness Awareness of Need for Assistance at Home Good Awareness Ability to Problem Solve Emergency Able to Problem Solve Situations Medication Management Medication Management No Deficits Identified Money Management Money Management No Deficits Identified Meal Preparation Meal Preparation No Deficits Identified Lead Maintenance Technician Lead Maintenance Technician No Deficits Identified M6 OT- IP Functional Cognition Start: 03/23/19 12:39 Freq: Status: Active Protocol: Document 03/23/19 12:39 CGR (Rec: 03/23/19 12:55 CGR [id number]) Cognitive Factors Limiting Selfcare Function Cognitive Ability Level of Alertness Alert Patient Orientation Name,Age,Birthday,Month,Date, Year,Day of Week,Place, Situation Attention Span Ability Capable of Focused Attention, Capable of Sustained Attention Ability to Follow Commands Able to Follow Multi-Step Commands Memory Description No Deficits Noted Safety Awareness No Deficits Noted Problem Solving Ability No deficits Noted Executive Function Ability No Deficits Noted Abstract Thinking Ability No Deficits Noted OT- Vision and Hearing OT- Hearing Assessment OT- Hearing Assessment WFL OT- Vision Assessment Visual Acuity Glasses All The Time,Glasses For Reading Visual Attentiveness WFL Occular Pursuits WFL Visual Convergence WFL Visual Shultz WFL Diplopia Absent Vision Assessment Comments Pt with mild nastagmus with tracking. M7 OT- IP Mobility and Balance Start: 03/23/19 12:39 Freq: Status: Active Protocol: Document 03/23/19 12:39 CGR (Rec: 03/23/19 12:55 CGR [id number]) OT- Bed Mobility Assessment Rolling Type of Rolling Roll to Left Level of Assistance Independent Supine to Sit Supine to Sit Assist Independent Scooting Scooting to Edge of Bed Independent Scooting Up and Down in Bed Independent OT-Transfer Assessment Sit to and From Stand Sit to and from Stand Standby Assistance Transfers Transfer Ability Standby Assistance Technique Transfer Destination Bed,Chair,Toilet Transfer Technique Stand Step Pivot Devices Transfer Assistive Devices Gait Belt,Front Wheeled Walker OT- Gait Assessment Gait Gait Assistance Required: Standby Assistance Assistive Devices Assistive Device Gait Belt,Front Wheeled Walker Comments Gait Ability Comments One slight LOB during session. No assist needed to regain balance. OT- Balance Assessment Sitting Balance and Reactions Static Sitting Balance Ability Normal Dynamic Sitting Balance Ability Good M8 OT- IP Objective Assessments Start: 03/23/19 12:39 Freq: Status: Active Protocol: Document 03/23/19 12:39 CGR (Rec: 03/23/19 12:55 CGR [id number]) OT Gross Range of Motion Upper Extremity Range of Motion Assessment Within Functional Limits OT Strength Upper Extremity Strength Assessment Within Functional Limits Comments Strength Comments Grossly 5/5 OT- Coordination Assessment Upper Extremity Finger to Nose Test Within Functional Limits Finger Tapping Test Within Functional Limits OT-Muscle Tone Assessment Muscle Tone WNL Yes OT Sensation Assessment Comments Summary Comments Pt states normal for the UE. Pt has neuropathy to BLE. Edema Edema Absent M9 OT- IP Assessment and Plan Start: 03/23/19 12:39 Freq: Status: Active Protocol: Document 03/23/19 12:39 CGR (Rec: 03/23/19 12:55 CGR [id number]) OT Summary Assessment and Plan Potential Rehabilitation Potential Excellent Analytic Complexity at Evaluation Low Summary OT Impairments Balance Progress Towards Goals Safe For Discharge,Goals Met Assessment Summary Pt presents as a low complexity evaluation. Pt admitted with PNA. Pt is close to his baseline but currently functional without assist. LOB noted on this date and a history of multiple falls at home. Pt likely to benefit from continued P.T. services and even outpatient P.T. if recommened by PT. Discussed home safety specifically in the bathroom and grab bars. Pt and state understanding. No further OT needs. Frequency of Treatment Frequency Of Treatment Discharge Discharge Recommendations OT Discharge Recommendations Home with Assistance
--- NOTE | 2019-03-23 13:21 | CM.IDA ---
Initial DCP Assessment Note: Pt is a 68 yo male, resident of [place]. Pt admitted w/a Right lower lobe pneumonia and followed by [facility] team, Dr Haddad today and likely Dr Gaston han tomorrow. PCP: Dr Cee Payer: Harry Reviewed chart and met w/pt, spouse and adult dtr at bedside, explained SW role. Pt explained he felt his sessions w/the therapy team had gone well though admitted he had fallen at home numerous times and was considering getting walker to replace his cane. Pt feels confident about his return home when medically cleared and family agree, pt also has an adult son that lives in [place] who can assist after work as needed. Pt plans to install grab bars in his home and use a shower chair in hopes it will decrease falls. Pt has no h/o HH or SNF. No barriers identified to safe return home when medically cleared, this [employer] will remain available in case any DC needs or concerns arise. DANUTA Strong Discharge Planning/Care Management CM Discharge Assessment Start: 03/23/19 13:11 Freq: Status: Active Protocol: Document 03/23/19 13:12 MASSIEL (Rec: 03/23/19 13:20 [email or web address] [id number]) Discharge Planning Assessment Assigned Renal Social Worker DANUTA Wilson DPOA/Assigned Designee Name Yodit Mauricio, spouse Contact Information [phone] Advance Directives? No History Provided By Patient Prior Living Arrangements House Household Members spouse Independent with ADL's Yes Is patient alert and oriented? Yes Barriers to Discharge No Comment Likely not. Home w/family as expected. Discharge Plan Home Transportation Arrangement Family Referrals Initiated None needed Review Status In Process
[2019-03-23 16:06] VITALS: BP 156/70; PULSE 64; RESP 20; TEMP 37.2; O2SAT 96
[2019-03-23] MEDS: BENZOCAINE/MENTHOL 1 LOZ PKT 1 EACH PO ×2 (16:10→21:30)
[2019-03-23] MEDS: INSULIN ASPART 100 UNIT/ML INSULN PEN SUBCUT (16:27)
[2019-03-23] MEDS: AZITHROMYCIN 250 MG in DEXTROSE 5% IN WATER 250 ML IV (16:41)
[2019-03-23 20:45] VITALS: BP 147/81; PULSE 58; RESP 20; TEMP 36.9; O2SAT 97
[2019-03-23] MEDS: CITALOPRAM 20 MG TABLET 40 MG PO (21:27)
[2019-03-24 00:50] VITALS: BP 167/91; PULSE 60; RESP 16; TEMP 37.2; O2SAT 97
[2019-03-24] MEDS: SODIUM CHLORIDE 0.9% 1,000 ML 75 ML IV (00:51)
[2019-03-24] MEDS: AZITHROMYCIN 250 MG in DEXTROSE 5% IN WATER 250 ML IV (01:30)
[2019-03-24] MEDS: CEFTRIAXONE 1 GM/50 ML FROZ.PIGGY IV (03:37)
--- NOTE | 2019-03-24 05:10 | PC.NURSE ---
Patient VSS, Lung sounds diminished bilaterally throughout. Patient's O2 Saturation is 96% on room air. When I came on shift and did assessment on patient, I saw that IV Azithromycin was not infused. Charge nurse notified, Med was re-ordered and re-timed, due to expiration. Medication ordered and ran at 0115.
[2019-03-24 05:12] VITALS: BP 166/82; PULSE 56; RESP 16; TEMP 36.4; O2SAT 97
[2019-03-24 05:50] LABS: Add Manual Diff / Slide Review NO; Basophils Absolute Auto 100 /uL (0-100); Basophils Percent Auto 1.1 % (0-2); Eosinophils Absolute Auto 400 /uL (0-450); Eosinophils Percent Auto 5.8 % (2-4); Hematocrit 37.6 % (41-53); Hemoglobin 12.8 g/dL (13.5-17.5); Lymphocytes Absolute Auto 1500 /uL (1100-4500); Lymphocytes Percent Auto 20.5 % (25-40); Mean Corpuscular HGB Conc 33.9 % (30-36); Mean Corpuscular Hemoglobin 33.3 PG (26-34); Mean Corpuscular Volume 98.2 fL (80-100); Monocytes Absolute Auto 800 /uL (0-900); Monocytes Percent Auto 10.2 % (3-14); Neutrophils Absolute Auto 4700 /uL (1500-7000); Neutrophils Percent Auto 62.4 % (50-75); Platelet Count 284 X10^3/uL (150-400); Red Blood Cell Count 3.83 X10^6/uL (4.5-5.9); Red Cell Distribution Width 13.1 % (11.6-14.8); White Blood Cell Count 7.5 X10^3/uL (4.5-11.0)
[2019-03-24 05:54] LABS: BUN Creatinine Ratio 19.2 (6-22); Blood Urea Nitrogen 46 mg/dL (9-20); Calcium 9.1 mg/dL (8.4-10.2); Carbon Dioxide 24 mmol/L (22-32); Chloride 109 mmol/L (98-107); Creatine Kinase 340 U/L (55-170); Glucose 111 mg/dL (80-110); HEMOLYSIS < 15 (0-50); Potassium 3.8 mmol/L (3.4-5.1); Sodium 142 mmol/L (137-145)
[2019-03-24 07:40] VITALS: BP 150/85; PULSE 54; RESP 18; TEMP 36.5; O2SAT 96
[2019-03-24] MEDS: METOPROLOL IR 50 MG TABLET PO (08:55)
[2019-03-24] MEDS: AMLODIPINE 5 MG TABLET PO (08:55)
[2019-03-24] MEDS: GABAPENTIN 300 MG CAPSULE 600 MG PO (08:55)
[2019-03-24] MEDS: GEMFIBROZIL 600 MG TABLET PO (08:56)
[2019-03-24] MEDS: CALCITRIOL 0.25 MCG CAPSULE PO (08:56)
--- NOTE | 2019-03-24 11:12 | P.DS_ITS ---
History of Present Illness History of Present Illness Date Patient Seen: 03/24/19 Time Patient Seen: 11:13 Chief complaint: Respiratory infection Narrative: Patient admitted through the ER this morning. Patient has been sick with a cough for proxy weak cough is been relatively productive intermittently with dark mucus and then have lightened up during the course of the week. He has had no bloody 10 mucus. He has had fever and chills but no actual temperature cousin has doesn't have a thermometer. No URI symptoms otherwise. Over the week he has gotten generally weaker. Today he could not get out of bed because is weakness he was brought to the emergency room for further evaluation. He was seen in the office yesterday for his cough felt to have an upper respiratory infection treated with clear erythromycin and albuterol. During the course of the day he gets seen got worse hence he came to the emergency room. Other medical problems include goy-oyvstgq-xinlllqfl diabetes. His A1cs have been running in the mid 5.5 range. We had been considering stopping his overall hypoglycemics. He has not taken any of his medications since yesterday morning. He has chronic kidney injury stage IV. Seeing a induction heating equipment setter. Creatinine most recently has been approximately 3.0. GFR has been running approximately 20. Other medical problems include hypertension, depression, peripheral neuropathy, hyperlipidemia, hypertension,. {from Dr. Cee's H&P 03/22/2019} Discharge Providers Provider Date of admission: 03/22/19 14:42 Discharge Date: 03/24/19 Primary care physician: Jon Cee MD Consults: 03/22/19 10:52 Consult to Physical Therapy Evaluate & Treat Comment: Physician Instructions: Evaluate and Treat 03/22/19 15:59 Consult to Occupational Therapy Evaluate & Treat Comment: Physician Instructions: Evaluate and treat Consult to Physical Therapy Evaluate & Treat Comment: Physician Instructions: Evaluate and Treat 03/22/19 18:12 Consult to Discharge Planning Routine Comment: home health 03/23/19 08:51 Consult to Respiratory Therapy Evaluate & Treat Comment: needs flutter valve Physician Instructions: Evaluate and treat Discharge provider: Derrick Feldman MD Summary Hospital Course Discharge Diagnosis: 1. Right lower lobe pneumonia 2. Acute kidney injury, resolved 3. Rhabdomyolysis, improving 4. Type 2 diabetes, not on insulin 5. Acute hypoglycemia, resolved 6. Chronic renal failure stage 4 7. Mixed hyperlipidemia 8. Probably peripheral neuropathy Hospital Course: Patient was admitted via emergency department because of persistent respiratory symptoms weakness hypoglycemia etcetera He had just been seen in the outpatient clinic and start antibiotic therapy for respiratory infection. However he was not improving became increasingly weak and difficulty with coordination etcetera. He was admitted for further evaluation and therapy In the hospital he was started on IV antibiotics and did not show any evidence of any persistent respiratory issues. He was not hypoxic and did not show evidence of any further respiratory or infectious decline. He was afebrile etcetera. He'll continue on 3 additional days of oral antibiotic therapy upon discharge Patient was hypoglycemic upon admission and modestly hypoglycemic during his hospitalization. Oral hypoglycemic agent was discontinued and patient's blood sugar remained adequately controlled without that medication. He'll continue off of that as an outpatient Patient also presented with acute kidney injury on top of his chronic renal failure stage 4. With gentle IV hydration and time patient's renal function returned to baseline with a creatinine of about 2.4-2.5. Patient also showed el evation of his CPK but this was trending towards baseline normal upon discharge. Patient had no specific areas of muscle pain or swelling to suggest an acute severe rhabdomyolysis uncertain as to etiology of his elevated creatinine kinase, other than his inactivity and his underlying renal failure etcetera Patient's other medical problems including his hyperlipidemia hypertension depression etcetera were stable Status at Discharge Cognitive/behavioral status at discharge: at baseline, oriented Functional status at discharge: independent ambulation Overall status at discharge: patient is progressing back to baseline Time Spent with Patient Time spent: Less than 30 minutes Exam Vital Signs (past 8 hours): - 03/24/19 05:12 03/24/19 07:40 Temperature 97.5 F L 97.7 F Pulse Rate 56 L 54 L Respiratory Rate 16 18 Blood Pressure 166/82 H 150/85 H Pulse Oximetry 97 96 Oxygen Delivery Method Room Air Oxygen Flow Rate 0 Narrative Exam Narrative: HEENT-unremarkable, normocephalic atraumatic Neck-no lymphadenopathy no bruits Lungs-clear anteriorly and posteriorly no wheezes no crackles good breath sounds Heart-regular rate and rhythm, no murmur, rub, or gallop. normal S1-S2 Abdomen-positive bowel tones, soft, nontender, nondistended, no hepatosplen omegaly, no masses palpable Neuro-normal to screening exam, gait not tested Extremities-no cyanosis clubbing or edema Objective Labs Result Diagrams: 03/24/19 05:27 03/24/19 05:27 Labs: Laboratory Results - last 24 hr 03/24/19 03/24/19 05:27 05:27 WBC 7.5 RBC 3.83 L Hgb 12.8 L Hct 37.6 L MCV 98.2 MCH 33.3 MCHC 33.9 RDW 13.1 Plt Count 284 Neut % (Auto) 62.4 Lymph % (Auto) 20.5 L [place] % (Auto) 10.2 Eos % (Auto) 5.8 H Baso % (Auto) 1.1 Neut # (Auto) 4700 Lymph # (Auto) 1500 [place] # (Auto) 800 Eos # (Auto) 400 Baso # (Auto) 100 Sodium 142 Potassium 3.8 Chloride 109 H Carbon Dioxide 24 BUN 46 H Creatinine 2.40 H Estimated GFR 27.0 L BUN/Creatinine Ratio 19.2 Glucose 111 H Calcium 9.1 Total Creatine Kinase 340 H D Discharge Plan Discharge Plan Patient Disposition: Home Discharge orders & Medications Prescriptions: New azithromycin 250 mg tablet 250 mg PO DAILY 3 Days Qty: 3 RF: 0 Continued acetaminophen 650 MG tablet extended release 650 mg PO PRN PRN (Reason: Pain, Mild) Qty: 0 RF: 0 niacin [Slo-Niacin] 750 mg tablet extended release 750 mg PO BEDTIME Qty: 90 RF: 3 albuterol sulfate [ProAir HFA] 90 mcg/actuation HFA aerosol inhaler 2 puff INHALATION Q4-6H PRN (Reason: shortness of breath) Qty: 8.5 RF: 1 potassium citrate 10 mEq (1,080 mg) Tablet Extended Release 10 meq PO DAILY RF: 0 amlodipine [Norvasc] 5 mg tablet 5 mg PO DAILY RF: 0 citalopram 20 mg tablet 40 mg PO BEDTIME RF: 0 gemfibrozil 600 mg tablet 600 mg PO DAILY RF: 0 simvastatin 20 mg tablet 20 mg PO QPM RF: 0 gabapentin 300 mg capsule 600 mg PO BID RF: 0 calcitriol 0.25 mcg capsule 1 cap PO DAILY RF: 0 Changed metoprolol tartrate 50 mg tablet 50 mg PO BID Qty: 90 RF: 1 Discontinued clarithromycin 500 mg tablet 500 mg PO BID Qty: 14 RF: 0 glyburide 5 mg tablet 5 mg PO BID RF: 0 Follow up/Referrals: Cee,Les, MD [Primary Care Provider] - 2 Weeks (patient to call on Tuesday03/26/2019 to make appt) Discharge Health Status Multidrug resistant organism: No MDRO Diet/Activity/Treatments Diet: Carb-consistent/Diabetic Visit Report/Discharge Packet Instructions: DI for Heart Failure, DI for Prescription Opioid Use Visit Report Forms: Congestive Heart Failure, Patient Portal/API, Stroke Signs & Symptoms Discharge Data Primary Care Provider: Jon Cee Attending Provider: Jon Cee Admit Date/Time: 03/22/19 14:42 Discharges patient from system. Discharge Date/Time: 03/24/19 13:59 Quality VTE Deep Vein Thrombosis/Pulmonary Embolism Present on Admission: No
--- NOTE | 2019-03-24 11:57 | PT.IPTN ---
Physical Therapy Treatment Note M2 PT-IP Current Condition Start: 03/22/19 12:41 Freq: Status: Active Protocol: Document 03/23/19 14:11 EG (Rec: 03/23/19 14:29 EG [id number]) Physical Therapy Current Condition Current Condition Evaluation Date 03/22/19 Treatment Diagnosis acute weakness, cough, difficulty in walking Onset Date 03/22/19 Precautions Other Precautions High risk of falls Weight Bearing Status Weight Bearing Status Full Weight Bearing M3 PT-IP Subjective Start: 03/22/19 12:41 Freq: Status: Active Protocol: Document 03/24/19 11:21 LJ (Rec: 03/24/19 11:56 LJ [id number]) Subjective Physical Therapy Visit Type Type Treatment Note Visit Start Time 11:21 Visit Stop Time 11:36 Total Visit Minutes 15 Notes Pt in bed willing to get up and walk. M4 PT-IP Mobility and Gait Start: 03/22/19 12:41 Freq: Status: Active Protocol: Document 03/24/19 11:21 LJ (Rec: 03/24/19 11:56 LJ [id number]) PT-Bed Mobility Assessment Supine to Sit Supine to Sit Standby Assistance Sit to Supine Sit to Supine Standby Assistance Scooting Scooting to Edge of Bed Standby Assistance PT-Transfer Assessment Sit to and From Stand Sit to and from Stand Standby Assistance,Use of Upper Extremities Equipment Transfer Assistive Device Gait Belt,Front Wheeled Walker Orthotic/Prosthetic Devices or Brace: No Transfers Transfer Destination Bed Transfer Technique Without FWW Transfer Ability Level of Assist Standby Assistance,Use of Upper Extremities Comments Mobility Comments Pt was in bed with family in room. Willing to ambulate in hallway and trial w/o assistive device. Pt SBA for all bed mobility and transfers . Gait Assessment Gait Gait Assistance Required: Standby Assistance,Contact Guard Assist Distance (Feet) 400 Able to Maintain Weight Bearing Status Yes During Gait Assistive Devices Assistive Device Gait Belt Orthotic/Prosthetic Devices or Brace: No Gait Deviations General Gait Pattern Within Normal Limits Factors Limiting Gait Function Factors Limiting Gait Function Decreased Activity Tolerance, Decreased Sensation,Decreased Strength Comments Gait Comments Pt ambulated 40' with FWW then completed walking in hallway without any AD. Pt CGA for first half of ambulation then SBA for remainder. Stair Climbing Assessment Evaluation Level of Assist On Stairs Standby Assistance Devices Stair Climbing Assistive Devices Right Railing Technique/Endurance Stair Climbing Direction Ascend and Descend Stair Climbing Technique Step to Step Number of Steps Climbed 1 Stair Climbing Set # Repetitions (reps) 2 Comments Stair Climbing Comments Pt used stool for step trial. PT-Balance Assessment Comments Other Balance Tests/Deviations/Treatment informal balance assessment : revealed pt was stable in NBOS with head turns, EC, in tandem standing pt experienced slight LOB which he quickly recovered after 30 sec M5 PT-IP Objective Assessments Start: 03/22/19 12:41 Freq: Status: Active Protocol: Document 03/22/19 13:33 AW (Rec: 03/22/19 14:15 AW [id number]) Orientation Orientation/Cognition Level of Alertness Alert Orientation Name,Day of Week,Place, Situation Language Function Ability No Deficits Noted Safety Awareness Decreased Safety Awareness Comments Pt with decreased safety awareness evidenced by choice of no assistive device at home . However, pt is open to increased use of SPC or to new use of FWW if necessary. Gross Range of Motion Upper Extremity ROM Assessment Within Functional Limits Lower Extremity ROM Assessment Within Functional Limits Strength Upper Extremity Strength Assessment Within Functional Limits Lower Extremity Strength Assessment Bilaterally Impaired Hip 4-/5 Knee 4/5 Ankle 4+/5 Comments Strength Comments Strength symmetrical in all quadrants. Coordination Assessment Gross Coordination Gross Coordination Impaired Assessment Finger to Nose Test Minimal Impairment Pronation/Supination Test Normal Performance Coordination Comments Pt demonstrated slight dysmetria with closed eyes finger to nose and slight intention tremor with finger gwyn eyes open. Sensation Assessment Sensation Gross Sensation Right UE Impaired,Left UE Impaired,Right LE Impaired, Left LE Impaired Light Touch Absent Sensation Description Numbness Comments Sensation Comments Pt has peripheral neuropathy with absent sensation to bilateral feet in stocking distribution. Hands are also affected but less so than feet . Muscle Tone Muscle Tone WNL Yes M6 PT-IP Treatment Start: 03/22/19 12:41 Freq: Status: Active Protocol: Document 03/24/19 11:21 LJ (Rec: 03/24/19 11:56 LJ [id number]) Physical Therapy Treatment Exercises Exercises Gluteal Sets,Quad Sets, Straight Leg Raises Education Education Provided Safety Other Treatments Other Treatment Performed Pt advised to use FWW for initial ambulation if walking outside of home. He is steady with 400+ feet of ambulation. He stated he was not going to push it and will use FWW if feeling unsteady. in aggrement. M7 PT-IP Assessment and Plan Start: 03/22/19 12:41 Freq: Status: Active Protocol: Document 03/24/19 11:21 SOULEYMANE (Rec: 03/24/19 11:56 SOULEYMANE [id number]) PT Summary Assessment and Plan Potential Rehabilitation Potential Good Status of Condition at Evaluation Evolving Summary Impairments Pain,Strength,Balance, Coordination,Sensation,Bed Mobility,Transfers,Gait Assessment Summary Pt much improved with balance and gait. Is safe to DC home. Goals Bed Mobility Goal Independent Transfer Goal Independent,Cane Gait Goal Independent,Cane Gait Distance 400 Days to Meet Goals 5 Frequency of Treatment Frequency Of Treatment Once a Day Treatment Plan Physical Therapy Treatment Plan Bed Mobility Training,Transfer Training,Gait Training, Therapeutic Exercise,Balance Retraining,Discharge Planning, Neuromuscular Re-ed Recommendations To Nursing Amount of Assist Needed Standby Assistance,1 Person Assist Discharge Recommendations PT Discharge Recommendations Home with Assistance, Outpatient PT
[2019-03-24 12:05] VITALS: BP 147/77; PULSE 53; RESP 18; TEMP 36.6; O2SAT 97
--- NOTE | 2019-03-24 13:50 | CM.DPNOTE ---
DC Note: DC home today per Dr Feldman's orders, cleared by therapy team for return home w/family to assist and use of FWW recommended. No SW needs identified and no barriers to safe return home as expected. JW
--- NOTE | 2019-03-24 13:55 | PC.NURSE ---
Pt given discharge instructions, agrees with same. IV HL d/c'd intact. Family assisting getting Pt ready for home. Pt escorted to car and d/c'd to care of family.
--- NOTE | 2019-04-03 11:22 | PC.NURSE ---
late entry: NS stop time 03/22/19 [id number]
== END 2019-03-24 13:59 | disposition home or self-care (01) ==
LOC: ED 09:03 → AC 14:43
PROVIDERS: Family Medicine; Admitting Provider Family Medicine; Emergency Provider Emergency Medicine; PCP Family Medicine; Visit Provider Family Medicine
DX: J18.9 Pneumonia, unspecified organism (principal); R05 Cough; R53.1 Weakness; Z87.891 Personal history of nicotine dependence; E11.9 Type 2 diabetes mellitus without complications; Z79.84 Long term (current) use of oral hypoglycemic drugs; N18.4 Chronic kidney disease, stage 4 (severe); E78.5 Hyperlipidemia, unspecified; M25.50 Pain in unspecified joint; M19.90 Unspecified osteoarthritis, unspecified site
CPT/HCPCS: 36415; 71045; 80048; 81003; 81015; 82550; 82553; 82962; 83605; 84145; 84484; 85025; 87040; 87086; 87502; 96361; 96365; 96366; 96367; 97116; 97162; 97165; 97535; 99217; 99220; 99225; 99284; G0378

== ENCOUNTER → 2019-04-09 08:11 | Outpatient (CLI) | payer OTHER, SELFPAY ==
[2019-03-22 16:34] VITALS: BMI 42.5
[2019-04-09 09:17] LABS: BUN Creatinine Ratio 17.1 (6-22); Blood Urea Nitrogen 48 mg/dL (9-20); Calcium 9.8 mg/dL (8.4-10.2); Carbon Dioxide 29 mmol/L (22-32); Chloride 105 mmol/L (98-107); Creatine Kinase 70 U/L (55-170); Estimated Glomerular Filt Rate 22.6 mL/min (>60); Glucose 134 mg/dL (80-110); HEMOLYSIS < 15 (0-50); Potassium 4.7 mmol/L (3.4-5.1); Sodium 143 mmol/L (137-145)
== END ==
PROVIDERS: PCP Family Medicine; Visit Provider Family Medicine
DX: M62.82 Rhabdomyolysis (principal)
CPT/HCPCS: 36415; 80048; 82550

== ENCOUNTER → 2019-06-13 08:05 | Outpatient (CLI) | payer OTHER, SELFPAY ==
[2019-03-22 16:34] VITALS: BMI 42.5
[2019-06-13 09:19] LABS: Hemoglobin 14.7 g/dL (13.5-17.5)
[2019-06-13 09:41] LABS: BUN Creatinine Ratio 21.1 (6-22); Blood Urea Nitrogen 52 mg/dL (9-20); Calcium 9.4 mg/dL (8.4-10.2); Carbon Dioxide 26 mmol/L (22-32); Chloride 105 mmol/L (98-107); Estimated Glomerular Filt Rate 26.2 mL/min (>60); Glucose 178 mg/dL (80-110); HEMOLYSIS < 15 (0-50); Potassium 4.6 mmol/L (3.4-5.1); Sodium 139 mmol/L (137-145)
[2019-06-13 09:42] LABS: Creatinine Urine Random 71.6 mg/dL; Protein (Total) Urine Random 91 mg/dL (0-12); Protein Creatinine Ratio Urine 1.27 GRAM/24H
== END ==
PROVIDERS: PCP Family Medicine; Referring Provider Student in an Organized Health Care Education/Training Program; Visit Provider Student in an Organized Health Care Education/Training Program
DX: N05.9 Unspecified nephritic syndrome with unspecified morphologic changes (principal); D64.9 Anemia, unspecified; R80.9 Proteinuria, unspecified
CPT/HCPCS: 36415; 80048; 82570; 84156; 85014; 85018

== ENCOUNTER → 2019-06-23 09:14 | Outpatient (CLI) | payer OTHER, SELFPAY ==
[2019-03-22 16:34] VITALS: BMI 42.5
[2019-06-23 09:32] LABS: Add Manual Diff / Slide Review NO; Basophils Absolute Auto 100 /uL (0-100); Basophils Percent Auto 1.4 % (0-2); Eosinophils Absolute Auto 300 /uL (0-450); Eosinophils Percent Auto 4.8 % (2-4); Hematocrit 43.8 % (41-53); Hemoglobin 14.7 g/dL (13.5-17.5); Lymphocytes Absolute Auto 1600 /uL (1100-4500); Lymphocytes Percent Auto 24.1 % (25-40); Mean Corpuscular HGB Conc 33.6 % (30-36); Mean Corpuscular Hemoglobin 33.1 PG (26-34); Mean Corpuscular Volume 98.5 fL (80-100); Monocytes Absolute Auto 600 /uL (0-900); Monocytes Percent Auto 8.9 % (3-14); Neutrophils Absolute Auto 4000 /uL (1500-7000); Neutrophils Percent Auto 60.8 % (50-75); Platelet Count 238 X10^3/uL (150-400); Red Blood Cell Count 4.45 X10^6/uL (4.5-5.9); Red Cell Distribution Width 13.8 % (11.6-14.8); White Blood Cell Count 6.6 X10^3/uL (4.5-11.0)
[2019-06-23 09:56] LABS: Hemoglobin A1C% w Est Avg Glu 6.3 % (4.0-6.0)
== END ==
PROVIDERS: PCP Family Medicine; Referring Provider Family Medicine; Visit Provider Family Medicine
DX: E11.9 Type 2 diabetes mellitus without complications (principal)
CPT/HCPCS: 36415; 83036; 85025

== ENCOUNTER → 2019-08-14 07:24 | Outpatient (CLI) | payer OTHER, SELFPAY ==
[2019-03-22 16:34] VITALS: BMI 42.5
[2019-08-14 08:28] LABS: Hemoglobin A1C% w Est Avg Glu 6.8 % (4.0-6.0)
[2019-08-14 10:03] LABS: BUN Creatinine Ratio 21.1 (6-22); Blood Urea Nitrogen 53 mg/dL (9-20); Calcium 9.3 mg/dL (8.4-10.2); Carbon Dioxide 26 mmol/L (22-32); Chloride 103 mmol/L (98-107); Estimated Glomerular Filt Rate 25.5 mL/min (>60); Glucose 142 mg/dL (80-110); HEMOLYSIS < 15 (0-50); Potassium 5.1 mmol/L (3.4-5.1); Sodium 139 mmol/L (137-145)
== END ==
PROVIDERS: PCP Family Medicine; Referring Provider Family Medicine; Visit Provider Family Medicine
DX: E11.9 Type 2 diabetes mellitus without complications (principal)
CPT/HCPCS: 36415; 80048; 83036

== ENCOUNTER → 2019-10-25 15:17 | Outpatient (CLI) | payer OTHER, SELFPAY ==
[2019-03-22 16:34] VITALS: BMI 42.5
[2019-10-25 16:21] LABS: BUN Creatinine Ratio 21.1 (6-22); Blood Urea Nitrogen 56 mg/dL (9-20); Calcium 9.1 mg/dL (8.4-10.2); Carbon Dioxide 20 mmol/L (22-32); Chloride 104 mmol/L (98-107); Estimated Glomerular Filt Rate 23.9 mL/min (>60); Glucose 108 mg/dL (80-110); Potassium 4.9 mmol/L (3.4-5.1); Sodium 137 mmol/L (137-145)
[2019-10-25 16:29] LABS: HEMOLYSIS 93 (0-50)
[2019-10-27 06:36] LABS: Parathyroid Hormone Int 84 pg/mL (15-65)
== END ==
PROVIDERS: PCP Family Medicine; Referring Provider Student in an Organized Health Care Education/Training Program; Visit Provider Student in an Organized Health Care Education/Training Program
DX: N05.9 Unspecified nephritic syndrome with unspecified morphologic changes (principal); D64.9 Anemia, unspecified; N25.81 Secondary hyperparathyroidism of renal origin
CPT/HCPCS: 36415; 80048; 83970; 85014; 85018

== ENCOUNTER → 2019-12-04 08:45 | Outpatient (CLI) | payer OTHER, SELFPAY ==
[2019-03-22 16:34] VITALS: BMI 42.5
== END ==
PROVIDERS: PCP Family Medicine; Visit Provider Specialist
DX: N39.0 Urinary tract infection, site not specified (principal)
CPT/HCPCS: 87086

== ENCOUNTER → 2019-12-18 11:47 | Outpatient (CLI) | payer OTHER, SELFPAY ==
[2019-03-22 16:34] VITALS: BMI 42.5
--- NOTE | 2019-12-18 11:48 | DI.CT.S_ITS ---
PROCEDURE: CT KIDNEY URETER BLADDER (KUB) INDICATIONS: hematuria TECHNIQUE: Noncontrast 5 mm thick sections acquired from the diaphragms to the symphysis. 5 mm thick coronal and sagittal reformats were then performed. For radiation dose reduction, the following was used: automated exposure control, adjustment of mA and/or kV according to patient size. COMPARISON: [facility], CT, CT KIDNEY URETER BLADDER (KUB), 01/16/2018, 11:38. FINDINGS: Image quality: Excellent. Lung bases: Lung bases are clear. Heart size is normal. Urinary system: Redemonstration of nephrocalcinosis of the right kidney. Persistent bilateral perinephric stranding. No hydronephrosis on either side. Non-obstructing 9 mm left nephrolith as well as a few punctate non-obstructing right-sided nephroliths. The largest measures approximately 10 mm in size. Both ureters appear non-dilated throughout their expected courses. Bladder wall thickness is normal; no calcified bladder stones. Other solid organs: Liver is normal in size. Gallbladder is decompressed but otherwise unremarkable. Pancreas is normal in contours. Spleen is normal in size. No adrenal nodules. Peritoneum and bowel: Unenhanced bowel loops demonstrate normal wall thickness and caliber. No free fluid or air. Moderate scattered colonic diverticula predominantly noted in the descending colon and sigmoid colon. No evidence for acute inflammation. Normal appendix. Nodes and vessels: No retroperitoneal or mesenteric adenopathy by size criteria. Aorta and inferior vena cava are normal in caliber. Scattered atherosclerotic calcifications of the abdominal aorta and iliac vessels without aneurysmal dilatation. Abdominal wall: There is a fat-containing umbilical hernia without acute inflammation. Pelvis: No free pelvic fluid. No inguinal hernias or adenopathy. Bones: No suspicious bony lesions. No acute vertebral body compression fractures. IMPRESSION: 1. Right nephrocalcinosis with bilateral nonobstructing nephroliths measuring up to 10 mm on the right and 9 mm on the left. No evidence for obstructive uropathy. No uroliths visualized within the collecting systems or urinary bladder. Stable appearance of bilateral perinephric stranding. 2. Colonic diverticulosis without acute diverticulitis. 3. Other chronic findings as above. Dictated by: Michael Cartwright M.D. on 12/18/2019 at 14:40 Approved by: Michael Cartwright M.D. on 12/18/2019 at 14:50
== END ==
PROVIDERS: PCP Family Medicine; Referring Provider Specialist; Visit Provider Specialist
DX: R31.29 Other microscopic hematuria (principal); E83.59 Other disorders of calcium metabolism; N29 Other disorders of kidney and ureter in diseases classified elsewhere; K57.30 Diverticulosis of large intestine without perforation or abscess without bleeding; K42.9 Umbilical hernia without obstruction or gangrene; R39.9 Unspecified symptoms and signs involving the genitourinary system; G62.9 Polyneuropathy, unspecified; Z87.442 Personal history of urinary calculi
CPT/HCPCS: 74176

== ENCOUNTER → 2019-12-20 08:19 | Outpatient (CLI) | payer OTHER, SELFPAY ==
[2019-03-22 16:34] VITALS: BMI 42.5
[2019-12-20 10:08] LABS: Prostate Specific Antigen 0.996 ng/mL (0.10-4.00)
== END ==
PROVIDERS: PCP Family Medicine; Referring Provider Specialist; Visit Provider Specialist
DX: R97.20 Elevated prostate specific antigen [PSA] (principal)
CPT/HCPCS: 36415; 84153

== ENCOUNTER → 2019-12-21 08:10 | Outpatient (CLI) | payer OTHER, SELFPAY ==
[2019-03-22 16:34] VITALS: BMI 42.5
[2019-12-21 08:55] LABS: Hemoglobin A1C% w Est Avg Glu 6.5 % (4.0-6.0)
[2019-12-21 09:44] LABS: Alanine Aminotransferase 15 IU/L (<50); Albumin Globulin Ratio 1.6 (1.0-2.8); Alkaline Phosphatase 91 U/L (38-126); Aspartate Aminotransferase 19 IU/L (17-59); BUN Creatinine Ratio 16.8 (6-22); Bilirubin Total 0.6 mg/dL (0.2-1.3); Blood Urea Nitrogen 38 mg/dL (9-20); Calcium 9.5 mg/dL (8.4-10.2); Carbon Dioxide 27 mmol/L (22-32); Chloride 108 mmol/L (98-107); Cholesterol 123 mg/dL (140-199); Estimated Glomerular Filt Rate 28.8 mL/min (>60); Globulin 2.5 g/dL (1.7-4.1); Glucose 137 mg/dL (80-110); HDL Cholesterol 39 mg/dL (40-60); HEMOLYSIS < 15 (0-50); LDL Cholesterol Calculated 67 mg/dL (<100); Sodium 142 mmol/L (137-145); Total Protein 6.5 g/dL (6.3-8.2); Triglycerides 84 mg/dL (35-150)
== END ==
PROVIDERS: PCP Family Medicine; Referring Provider Family Medicine; Visit Provider Family Medicine
DX: E11.9 Type 2 diabetes mellitus without complications (principal)
CPT/HCPCS: 36415; 80053; 80061; 83036; G0103

== ENCOUNTER → 2020-02-11 07:18 | Outpatient (CLI) | payer OTHER, SELFPAY ==
[2019-03-22 16:34] VITALS: BMI 42.5
[2020-02-11 08:09] LABS: Hemoglobin 14.3 g/dL (13.5-17.5)
[2020-02-11 08:31] LABS: BUN Creatinine Ratio 23.4 (6-22); Blood Urea Nitrogen 54 mg/dL (9-20); Calcium 9.4 mg/dL (8.4-10.2); Carbon Dioxide 30 mmol/L (22-32); Chloride 107 mmol/L (98-107); Estimated Glomerular Filt Rate 28.1 mL/min (>60); Glucose 135 mg/dL (80-110); HEMOLYSIS < 15 (0-50); Sodium 141 mmol/L (137-145)
[2020-02-11 08:34] LABS: Creatinine Urine Random 62.8 mg/dL; Protein (Total) Urine Random 60 mg/dL (0-12); Protein Creatinine Ratio Urine 0.95 GRAM/24H
[2020-02-12 06:05] LABS: Parathyroid Hormone Int 72 pg/mL (15-65)
== END ==
PROVIDERS: PCP Internal Medicine; Referring Provider Student in an Organized Health Care Education/Training Program; Visit Provider Student in an Organized Health Care Education/Training Program
DX: N05.9 Unspecified nephritic syndrome with unspecified morphologic changes (principal); D64.9 Anemia, unspecified; N25.81 Secondary hyperparathyroidism of renal origin; R80.9 Proteinuria, unspecified
CPT/HCPCS: 36415; 80048; 82570; 83970; 84156; 85014; 85018

== ENCOUNTER → 2020-04-02 13:53 | Outpatient (CLI) | payer OTHER, SELFPAY ==
[2019-03-22 16:34] VITALS: BMI 42.5
[2020-04-03 09:04] LABS: Fecal Immunochemical Test Negative (Negative)
== END ==
PROVIDERS: PCP Internal Medicine; Referring Provider Internal Medicine; Visit Provider Internal Medicine
DX: Z12.11 Encounter for screening for malignant neoplasm of colon (principal)
CPT/HCPCS: 82274

== ENCOUNTER → 2020-05-13 11:26 | Outpatient (CLI) | payer OTHER, SELFPAY ==
[2019-03-22 16:34] VITALS: BMI 42.5
[2020-05-13 13:16] LABS: BUN Creatinine Ratio 18.1 (6-22); Blood Urea Nitrogen 41 mg/dL (9-20); Calcium 9.3 mg/dL (8.4-10.2); Carbon Dioxide 29 mmol/L (22-32); Chloride 103 mmol/L (98-107); Estimated Glomerular Filt Rate 28.8 mL/min (>60); Glucose 129 mg/dL (80-110); HEMOLYSIS < 15 (0-50); Potassium 4.4 mmol/L (3.4-5.1); Sodium 139 mmol/L (137-145)
[2020-05-14 09:32] LABS: Parathyroid Hormone Int 87 pg/mL (15-65)
== END ==
PROVIDERS: Student in an Organized Health Care Education/Training Program; PCP Internal Medicine; Referring Provider Internal Medicine; Visit Provider Internal Medicine
DX: N20.0 Calculus of kidney (principal); E11.9 Type 2 diabetes mellitus without complications; E78.2 Mixed hyperlipidemia; R39.9 Unspecified symptoms and signs involving the genitourinary system
CPT/HCPCS: 36415; 80048; 83970; 85014; 85018

== ENCOUNTER → 2020-06-21 09:02 | Outpatient (CLI) | payer OTHER, SELFPAY ==
[2019-03-22 16:34] VITALS: BMI 42.5
[2020-06-21 10:41] LABS: Alanine Aminotransferase 17 IU/L (<50); Albumin Globulin Ratio 1.7 (1.0-2.8); Alkaline Phosphatase 90 U/L (38-126); Aspartate Aminotransferase 20 IU/L (17-59); BUN Creatinine Ratio 19.1 (6-22); Bilirubin Total 0.5 mg/dL (0.2-1.3); Blood Urea Nitrogen 44 mg/dL (9-20); Calcium 9.4 mg/dL (8.4-10.2); Carbon Dioxide 26 mmol/L (22-32); Chloride 106 mmol/L (98-107); Cholesterol 128 mg/dL (140-199); Estimated Glomerular Filt Rate 28.2 mL/min (>60); Globulin 2.4 g/dL (1.7-4.1); Glucose 161 mg/dL (80-110); HDL Cholesterol 41 mg/dL (40-60); HEMOLYSIS < 15 (0-50); Hemoglobin A1C% w Est Avg Glu 6.9 % (4.0-6.0); LDL Cholesterol Calculated 73 mg/dL (<100); Potassium 4.9 mmol/L (3.4-5.1); Sodium 143 mmol/L (137-145); Total Protein 6.4 g/dL (6.3-8.2); Triglycerides 70 mg/dL (35-150)
[2020-06-21 11:06] LABS: Creatinine Urine Random 68.7 mg/dL
[2020-06-21 12:03] LABS: Microalbumi Creatinin Ratio Ur 625.9 ug/mg CR (<30)
== END ==
PROVIDERS: PCP Internal Medicine; Referring Provider Internal Medicine; Visit Provider Internal Medicine
DX: E11.9 Type 2 diabetes mellitus without complications (principal); E78.2 Mixed hyperlipidemia; N20.0 Calculus of kidney; R39.9 Unspecified symptoms and signs involving the genitourinary system
CPT/HCPCS: 36415; 80053; 80061; 82043; 82570; 83036

== ENCOUNTER → 2020-09-22 08:53 | Outpatient (CLI) | payer OTHER, SELFPAY ==
[2019-03-22 16:34] VITALS: BMI 42.5
[2020-09-22 10:45] LABS: Hematocrit 44.8 % (41-53); Hemoglobin 14.9 g/dL (13.5-17.5)
[2020-09-22 11:13] LABS: BUN Creatinine Ratio 16.6 (6-22); Blood Urea Nitrogen 34 mg/dL (9-20); Calcium 9.3 mg/dL (8.4-10.2); Carbon Dioxide 27 mmol/L (22-32); Chloride 106 mmol/L (98-107); Estimated Glomerular Filt Rate 32.2 mL/min (>60); Glucose 148 mg/dL (80-110); HEMOLYSIS < 15 (0-50); Potassium 4.5 mmol/L (3.4-5.1); Sodium 141 mmol/L (137-145)
[2020-09-23 07:21] LABS: Parathyroid Hormone Int 84 pg/mL (15-65)
== END ==
PROVIDERS: PCP Internal Medicine; Referring Provider Student in an Organized Health Care Education/Training Program; Visit Provider Student in an Organized Health Care Education/Training Program
DX: N05.9 Unspecified nephritic syndrome with unspecified morphologic changes (principal); D64.9 Anemia, unspecified; N25.81 Secondary hyperparathyroidism of renal origin
CPT/HCPCS: 36415; 80048; 83970; 85014; 85018

== ENCOUNTER → 2020-12-29 07:37 | Outpatient (CLI) | payer OTHER, SELFPAY ==
[2019-03-22 16:34] VITALS: BMI 42.5
[2020-12-29 08:07] LABS: Hemoglobin A1C% w Est Avg Glu 6.9 % (4.0-6.0)
[2020-12-29 08:10] LABS: Alanine Aminotransferase 51 IU/L (<50); Albumin Globulin Ratio 1.6 (1.0-2.8); Alkaline Phosphatase 72 U/L (38-126); Aspartate Aminotransferase 28 IU/L (17-59); BUN Creatinine Ratio 17.3 (6-22); Bilirubin Total 0.7 mg/dL (0.2-1.3); Blood Urea Nitrogen 40 mg/dL (9-20); Calcium 9.7 mg/dL (8.4-10.2); Carbon Dioxide 29 mmol/L (22-32); Chloride 106 mmol/L (98-107); Cholesterol 134 mg/dL (140-199); Globulin 2.5 g/dL (1.7-4.1); Glucose 149 mg/dL (80-110); HDL Cholesterol 28 mg/dL (40-60); HEMOLYSIS 20 (0-50); LDL Cholesterol Calculated 54 mg/dL (<100); Sodium 142 mmol/L (137-145); Total Protein 6.5 g/dL (6.3-8.2); Triglycerides 258 mg/dL (35-150)
[2020-12-29 08:21] LABS: LDL Cholesterol Direct 65 mg/dL (<100)
[2020-12-29 08:41] LABS: Prostate Specific Antigen Scrn 0.894 ng/mL (0.1-4.0)
== END ==
PROVIDERS: PCP Internal Medicine; Referring Provider Internal Medicine; Visit Provider Internal Medicine
DX: E11.9 Type 2 diabetes mellitus without complications (principal); E78.2 Mixed hyperlipidemia; I10 Essential (primary) hypertension; N18.32 Chronic kidney disease, stage 3b; Z12.5 Encounter for screening for malignant neoplasm of prostate
CPT/HCPCS: 36415; 80053; 80061; 83036; 83721; G0103

== ENCOUNTER → 2021-02-09 08:38 | Outpatient (CLI) | payer OTHER, SELFPAY ==
[2019-03-22 16:34] VITALS: BMI 42.5
[2021-02-09 10:00] LABS: Hematocrit 45.2 % (41-53); Hemoglobin 15.2 g/dL (13.5-17.5)
[2021-02-09 10:28] LABS: BUN Creatinine Ratio 19.4 (6-22); Blood Urea Nitrogen 42 mg/dL (9-20); Calcium 9.4 mg/dL (8.4-10.2); Carbon Dioxide 29 mmol/L (22-32); Chloride 103 mmol/L (98-107); Estimated Glomerular Filt Rate 30.1 mL/min (>60); Glucose 147 mg/dL (80-110); HEMOLYSIS < 15 (0-50); Potassium 5.1 mmol/L (3.4-5.1); Sodium 140 mmol/L (137-145)
[2021-02-09 10:48] LABS: Creatinine Urine Random 88.8 mg/dL; Protein (Total) Urine Random 179 mg/dL (0-12); Protein Creatinine Ratio Urine 2.01 GRAM/24H
[2021-02-10 09:04] LABS: Parathyroid Hormone Int 90 pg/mL (15-65)
== END ==
PROVIDERS: PCP Internal Medicine; Referring Provider Student in an Organized Health Care Education/Training Program; Visit Provider Student in an Organized Health Care Education/Training Program
DX: N05.9 Unspecified nephritic syndrome with unspecified morphologic changes (principal); D64.9 Anemia, unspecified; N25.81 Secondary hyperparathyroidism of renal origin; R80.9 Proteinuria, unspecified
CPT/HCPCS: 36415; 80048; 82570; 83970; 84156; 85014; 85018

== ENCOUNTER → 2021-07-13 07:57 | Outpatient (CLI) | payer OTHER, SELFPAY ==
[2019-03-22 16:34] VITALS: BMI 42.5
[2021-07-13 08:39] LABS: Hematocrit 39.5 % (41-53); Hemoglobin 13.3 g/dL (13.5-17.5)
[2021-07-13 08:58] LABS: BUN Creatinine Ratio 17.9 (6-22); Blood Urea Nitrogen 40 mg/dL (9-20); Carbon Dioxide 28 mmol/L (22-32); Chloride 106 mmol/L (98-107); Estimated Glomerular Filt Rate 30 mL/min (>60); Glucose 128 mg/dL (80-110); HEMOLYSIS < 15 (0-50); Potassium 4.5 mmol/L (3.4-5.1); Sodium 141 mmol/L (137-145)
[2021-07-13 16:32] LABS: Creatinine Urine Random 91.5 mg/dL
[2021-07-13 16:48] LABS: Protein (Total) Urine Random 279 mg/dL (0-12); Protein Creatinine Ratio Urine 3.04 GRAM/24H
[2021-07-14 09:36] LABS: Parathyroid Hormone Int 60 pg/mL (15-65)
== END ==
PROVIDERS: PCP Internal Medicine; Referring Provider Student in an Organized Health Care Education/Training Program; Visit Provider Student in an Organized Health Care Education/Training Program
DX: N05.9 Unspecified nephritic syndrome with unspecified morphologic changes (principal); D64.9 Anemia, unspecified; N25.81 Secondary hyperparathyroidism of renal origin; R80.9 Proteinuria, unspecified
CPT/HCPCS: 36415; 80048; 82570; 83970; 84156; 85014; 85018

== ENCOUNTER → 2021-07-31 10:43 | Outpatient (CLI) | payer OTHER, SELFPAY ==
[2019-03-22 16:34] VITALS: BMI 42.5
[2021-07-31 11:32] LABS: Hemoglobin A1C% w Est Avg Glu 6.5 % (4.0-6.0)
[2021-07-31 12:43] LABS: Free T4, Direct Thyroxine 1.02 ng/dL (0.78-2.19)
[2021-07-31 12:58] LABS: Thyroid Stimulating Hormone 1.79 uIU/mL (0.47-4.68)
== END ==
PROVIDERS: PCP Internal Medicine; Referring Provider Internal Medicine; Visit Provider Internal Medicine
DX: E11.9 Type 2 diabetes mellitus without complications (principal); I10 Essential (primary) hypertension; L65.9 Nonscarring hair loss, unspecified
CPT/HCPCS: 36415; 83036; 84439; 84443

== ENCOUNTER 2021-08-05 15:38 | Emergency (ER) | payer OTHER, SELFPAY ==
[2019-03-22 16:34] VITALS: BMI 42.5
[2021-08-05 15:58] VITALS: BP 161/73; PULSE 51; RESP 20; TEMP 36.7; O2SAT 97
--- NOTE | 2021-08-05 18:35 | ED_ITS ---
HPI - Wound/Laceration <China Acosta [facility] - Last Filed: 08/05/21 20:58> General Chief Complaint: Wound/Laceration Stated Complaint: Cut lt index finger Time Seen by Provider: 08/05/21 18:21 Source: patient Mode of arrival: Ambulatory History of Present Illness HPI narrative: This is a 71-year-old male with history of diabetes and peripheral neuropathy, CKD, hypertension who presents to the emergency department with a left 2nd finger injury after he accidentally cut himself on his table saw. Patient is a right-hand male, does not remember when his last tetanus was, states he was using the sticks to push the with through and all of a sudden he had his finger underneath the blade does not remember how it got that close. Patient states that he is not taking any pain medicine yet, denies any range of motion deficit or new numbness or tingling. Patient states that he is a diabetic with significant neuropathy, bleeding is controlled with a pressure dressing, patient denies any fingernail injury. Related Data Home Medications Medication Instructions Recorded Confirmed acetaminophen 650 mg 650 mg PO PRN PRN #0 08/24/16 07/31/21 tablet,extended release calcitriol 0.25 mcg capsule 1 cap PO DAILY 08/25/17 07/31/21 potassium citrate 10 mEq (1,080 10 meq PO DAILY 03/22/19 07/31/21 mg) tablet,extended release cholecalciferol (vitamin D3) 50 50 mcg PO DAILY 09/25/19 07/31/21 mcg (2,000 unit) tablet omega-3 fatty acids-fish oil 360 1 cap PO DAILY 09/25/19 07/31/21 mg-1,200 mg capsule (Fish Oil) Sodium Bicarbonate 10 g PO BID 03/25/20 07/31/21 lactobacillus combination no.8 3 3,000 mmu cells PO DAILY 03/25/20 07/31/21 billion cell capsule (Adult Probiotic) Previous Rx's Medication Instructions Recorded Disabled Parking #1 ea 03/25/20 cyclobenzaprine 7.5 mg tablet 7.5 mg PO TID PRN #30 tab 08/08/20 simvastatin 20 mg tablet 20 mg PO BEDTIME #90 tab 11/21/20 metoprolol tartrate 50 mg tablet 50 mg PO BID #180 tab 12/23/20 amlodipine 5 mg tablet 5 mg PO DAILY #90 tab 01/14/21 One Touch Ultra Blue Test Strips #250 ea 01/26/21 gabapentin 300 mg capsule 600 mg PO BID #180 cap 07/28/21 citalopram 20 mg tablet 40 mg PO BEDTIME #180 tab 08/03/21 adhesive bandage 2 X 3 3/4 #10 ea 08/05/21 (Telfa) cephalexin 500 mg capsule 500 mg PO BID 5 Days #10 cap 08/05/21 mupirocin 2 % topical ointment 1 applic TOPICAL BID #15 g 08/05/21 Allergies Allergy/AdvReac Type Severity Reaction Status Date / Time metformin AdvReac Intermediate TOXIC TO Verified 07/31/21 10:21 HIS KIDNEY Review of Systems <LEENA Torres - Last Filed: 08/05/21 20:58> Review of Systems Narrative: General: denies fever, chills Head/Neck: denies headache, neck pain Eyes: denies visual changes, eye pain Cardio: denies chest pain, palpitations Respiratory: denies shortness of breath, cough GI: denies abdominal pain, nausea, vomiting, or diarrhea : denies dysuria, hematuria or flank pain MSK: denies new joint pain, muscle weakness or swelling Skin: denies rash, itching, complex laceration to left 2nd index finger over his DIP, does not involve fingernail Neuro: denies numbness, tingling, dizziness Patient History <LEENA Torres - Last Filed: 08/05/21 20:58> Medical History Acne Arthritis Attention deficit hyperactivity disorder (ADHD) (05/21/15) Bilateral nephrolithiasis Calcium nephrolithiasis Chronic renal failure, stage 3b Depression (05/21/15) Depression (~1999) Erectile dysfunction Essential hypertension Foot pain Headache Kidney disease Lower urinary tract symptoms (LUTS) Mixed hyperlipidemia (05/21/15) Peripheral polyneuropathy (10/21/16) Plantar warts (~1959) Shoulder pain Type 2 diabetes mellitus without complication (05/21/15) Family History Mother Age: 89 Cerebrovascular accident (CVA), unspecified mechanism Social History household members: spouse Smoking Status: Former smoker alcohol intake: former Smoking Status: Former smoker Substance Use Type: does not use Exam <LEENA Torres - Last Filed: 08/05/21 20:58> Narrative Exam Narrative: Independently reviewed vitals signs and nursing notes. General: Awake, alert, nontoxic, no cardiorespiratory distress Head/Neck: Atraumatic, neck supple Eyes: EOMI, conjunctiva normal Nose: nares patent, no rhinorrhea Mouth/Throat: moist mucus membranes, posterior pharynx without erythema or lesion Cardio: Regular rate and rhythm, no peripheral edema Respiratory: respirations unlabored without wheezing, stridor, or rales. No retractions, hypoxia or tachypnea MSK: Moves all extremities, neurovascularly intact, range of motion without deficit to left 2nd digit, flexion and extension isolated age joint and intact. Skin: Normal capillary refill, no rash, complex laceration to left 2nd digit over the D IP joint over the dorsum, a large portion of skin has been removed, digital block performed with lidocaine with sodium bicarb over the PIP joint with good result, wound was cleansed, bleeding was controlled, no vascular injury or tendon injury suspected, his range of motion and cap refill are intact, without deficit. Suture repair approximated wound edges as best as able although there is still a portion over the medial aspect of the finger without any dermal layer. Couple loose stitches over this with dissolvable sutures deep to that. Neuro: Normal speech and cognition, normal gait Initial Vital Signs Initial Vital Signs: Vital Signs Temperature 98.0 F 08/05/21 15:58 Pulse Rate 51 L 08/05/21 15:58 Respiratory Rate 20 08/05/21 15:58 Blood Pressure 161/73 H 08/05/21 15:58 Pulse Oximetry 97 08/05/21 15:58 Procedures <LEENA Torres - Last Filed: 08/05/21 20:58> Laceration Repair Laceration 1: Site: hand (2nd digit ) Side (If applicable): left Size (cm): 3 Description: flap, irregular and contaminated Depth: simple, single layer and involves muscle layer Local Anesthetic: lidocaine 1% and with bicarb Amount of anesthesia used (mL): 4 Pre-repair: wound explored, irrigated extensively, deep structures intact and wound margins revised Skin layer closed with: nylon Skin layer suture size: 5-0 Number of sutures: 9 Technique: simple, interrupted Subcutaneous layer closed with: chromic gut Subcutaneous layer suture size: 4-0 Number of sutures: 4 Technique: simple, interrupted (horizontal mattress) Course <LEENA Torres - Last Filed: 08/05/21 20:58> Orders Ordered: Discontinued Medications Acetaminophen (Acetaminophen 325 Mg Tablet) 975 mg PO NOW ONE Stop: 08/05/21 18:36 Last Admin: 08/05/21 19:29 Dose: 975 mg Documented by: NIKOLAS Bacitracin (Bacitracin Oint 0.9 Gm Pckt) 1 applic TOP NOW ONE Stop: 08/05/21 18:36 Cephalexin HCl (Cephalexin 250 Mg Capsule) 500 mg PO NOW ONE Stop: 08/05/21 18:36 Last Admin: 08/05/21 19:30 Dose: 500 mg Documented by: NIKOLAS Diphtheria/Tetanus/Acell Pertussis (Tet,Diph,Pertuss(Acell),Vac/Pf 0.5 Ml Syringe) 0.5 ml IM .ONCE ONE Stop: 08/05/21 18:26 Last Admin: 08/05/21 19:31 Dose: 0.5 ml Documented by: NIKOLAS Lidocaine/Sodium Bicarbonate (Lido 1%/Sod Bicarb 8.4% (10ml) 10 Ml Syringe) 10 ml INJ NOW ONE Stop: 08/05/21 18:22 Last Admin: 08/05/21 19:33 Dose: 10 ml Documented by: NIKOLAS Vital Signs Vital signs: Vital Signs - 8 hr 08/05/21 15:58 Temperature 98.0 F Pulse Rate 51 L Respiratory Rate 20 Blood Pressure 161/73 H Pulse Oximetry 97 MDM - Wound/Laceration <LEENA Torres - Last Filed: 08/05/21 20:58> Imaging Data Extremity x-ray #1: Radiologist's Impression: PROCEDURE:? XR FINGER LT MIN 2V ? INDICATIONS:? finger laceration, 2nd digit distal tip ? TECHNIQUE:? AP hand, 2 views of the 2nd finger(s) acquired.? ? COMPARISON:? None. ? FINDINGS:? ? Bones:? No fractures or dislocations.? No suspicious bony lesions.? ? Soft tissues:? No suspicious soft tissue calcifications.? 2nd distal digit soft tissue laceration is present. ? IMPRESSION:? 2nd digit soft tissue laceration. No visualized acute fracture or dislocation. However, if clinical concern and/or pain persist, short interval imaging followup in 7-10 days is recommended, as occult injury cannot be definitively excluded. ? ? Dictated by: Catherine Balbuena M.D. on 08/05/2021 at 19:01 ? ? Approved by: Catherine Balbuena M.D. on 08/05/2021 at 19:02 ? MDM Narrative Medical decision making narrative: This is a pleasant 71-year-old male who presents to the emergency department complaining of a laceration to his left index finger which occurred when he was using a table fall at home. Patient has a history of diabetes, peripheral neuropathy, and is not on any anticoagulants. He states that he was using to sticks to push the wood through on the table saw and suddenly, his finger was under the blade and it was an accident. Patient is neurovascularly intact, with normal flexion and extension of his finger isolated each joint. He has a complex laceration which avulsed a large portion of tissue and fully removed the middle of the wound. There is no finger nail injury however his wound is irreg ular and jail circumferential around the dorsum of his finger. For chromic gut sutures were placed in the lateral aspect of the finger where there is no tissue to pull the dermal layers together, two loose stitches were placed over this, all other sutures bring the wound edges as close together as possible but there still may be subcutaneous tissue showing as he removed the dermal layer. Patient had intact sensation and mobility of his fingertips after suture repair. He is instructed to follow-up with orthopedics and have his sutures removed in 10 days or according to their recommendation. Patient was started on Keflex for infection prophylaxis due to his comorbidities. Patient was given Tylenol for pain, his tetanus was updated, he was prescribed mupirocin ointment to use topically and understands to have his sutures removed in 10 days and to follow- up with orthopedics. He was given strict return precautions for any sensation changes or mobility changes, bleeding, worsening pain, signs of infection, or other complication. Patient is appropriate and amenable to discharge home. Vital signs are stable on repeat examination is unremarkable. Patient has been informed of results. Patient has been given strict return to ER precautions for any new or worsening symptoms. Patient understands to follow up closely with outpatient providers as instructed. Patient understands plan and agrees to discharge home. All questions and concerns answered at this time. Discharge Plan Departure Patient Disposition: Home Clinical Impression: Laceration Instructions: DI for Laceration Repair -- Complex Suture Activity Restrictions/Additional Instructions: *You have been diagnosed with Complex laceration of your left index finger with nine non dissolvable sutures and for dissolvable sutures underneath the skin. I was not able to fully close this due to the loss of tissue in the middle of the laceration. Please call and schedule appointment with Orthopedics for follow- up, your x-ray does not show any fracture, please keep your laceration covered with a Band-Aid at minimum, antibiotic ointment and keep it clean and dry much as possible. You may use a gentle cleanser and let water run over it in the shower. Please keep the sutures in for 10 days and follow-up with orthopedics or your primary care provider to have these removed when they are ready for them to be removed or 10 days from today whichever is the recommendation. Please take antibiotics twice a day for the next five days to help prevent infection. If you develop any redness or streaking up your finger, worsening pain, swelling or pus, please return for antibiotics. Please use Tylenol as needed for pain, keep it elevated, apply a nonstick dressing like Xeroform or Telfa and you may wrap it around her finger imply tape to help absorb drainage. Please keep it covered with something absorbable because it will likely have a small amount of bleeding and drainage over the next 2-3 days. For any worsening, please come back to the emergency department and tomorrow call to make an appointment with Orthopedics for follow-up any time. *What to do: *Please continue to take your regular medications as directed. [x ] New medication prescriptions sent to your pharmacy: [ [facility]] [ ] New medication written as a paper prescription [ ] No new medications given *Please follow up with your primary care provider in 2-3 days, call for an appointment. Let them know you were seen in the Emergency Department and that we asked that you be seen for follow-up. We will electronically transmit a record of today's note if your PCP is in our system *If you do not have a primary care provider please contact [phone] to establish care with one of the [facility] primary care providers. *Return to Emergency Department if you should have any new, worsening or concerning symptoms, such as [fever greater than 101F, chills, worsening pain, persistent vomiting or other bothersome symptoms] Prescriptions: New cephalexin 500 mg capsule 500 mg PO BID 5 Days Qty: 10 0RF mupirocin 2 % ointment 1 applic topical BID Qty: 15 0RF (DME) Telfa 2 X 3 3/4 bandage See Rx Instructions .Route Qty: 10 0RF Rx Instructions: As directed No Action acetaminophen 650 MG tablet extended release 650 mg PO PRN PRN (Reason: Pain, Mild) Qty: 0 0RF simvastatin 20 mg tablet 20 mg PO BEDTIME Qty: 90 2RF amlodipine 5 mg tablet 5 mg PO DAILY Qty: 90 3RF (DME) One Touch Ultra Blue Test Strips Qty: 250 5RF Rx Instructions: Use to test blood sugars twice daily gabapentin 300 mg capsule 600 mg PO BID Qty: 180 0RF Rx Instructions: TAKE 2 CAPSULES BY MOUTH TWICE DAILY citalopram 20 mg tablet 40 mg PO BEDTIME Qty: 180 1RF Rx Instructions: TAKE 2 TABLETS(40MG) BY MOUTH EVERY NIGHT AT BEDTIME Sodium Bicarbonate 10 g PO BID 0RF Rx Instructions: 1 tab morning and night Adult Probiotic 3 billion cell capsule 3,000 mmu cells PO DAILY 0RF Rx Instructions: administer with a meal (DME) Disabled Parking See Rx Instructions .ROUTE .MEDSUPPLY Qty: 1 0RF Rx Instructions: Patient qualifies for disabled parking as per the attached form. cyclobenzaprine 7.5 mg tablet 7.5 mg PO TID PRN (Reason: muscle spasm) Qty: 30 0RF cholecalciferol (vitamin D3) 50 mcg (2,000 unit) tablet 50 mcg PO DAILY 0RF omega-3 fatty acids-fish oil [Fish Oil] 360-1,200 mg capsule 1 cap PO DAILY 0RF metoprolol tartrate 50 mg tablet 50 mg PO BID Qty: 180 3RF potassium citrate 10 mEq (1,080 mg) Tablet Extended Release 10 meq PO DAILY 0RF calcitriol 0.25 mcg capsule 1 cap PO DAILY 0RF Referrals: [facility] [Provider Group] Derrick Feldman MD [Primary Care Provider] -
--- NOTE | 2021-08-05 18:36 | DI.RAD.S_ITS ---
PROCEDURE: XR FINGER LT MIN 2V INDICATIONS: finger laceration, 2nd digit distal tip TECHNIQUE: AP hand, 2 views of the 2nd finger(s) acquired. COMPARISON: None. FINDINGS: Bones: No fractures or dislocations. No suspicious bony lesions. Soft tissues: No suspicious soft tissue calcifications. 2nd distal digit soft tissue laceration is present. IMPRESSION: 2nd digit soft tissue laceration. No visualized acute fracture or dislocation. However, if clinical concern and/or pain persist, short interval imaging followup in 7-10 days is recommended, as occult injury cannot be definitively excluded. Dictated by: Catherine Balbuena M.D. on 08/05/2021 at 19:01 Approved by: Catherine Balbuena M.D. on 08/05/2021 at 19:02
[2021-08-05] MEDS: ACETAMINOPHEN 325 MG TABLET 975 MG PO (19:29)
[2021-08-05] MEDS: cephALEXin 250 MG CAPSULE 500 MG PO (19:30)
[2021-08-05] MEDS: TET,DIPH,PERTUSS(ACELL),VAC/PF 0.5 ML SYRINGE IM (19:31)
[2021-08-05] MEDS: LIDO 1%/SOD BICARB 8.4% (10ML) 10 ML SYRINGE INJ (19:33)
== END 2021-08-05 19:47 | disposition home or self-care (01) ==
PROVIDERS: Emergency Provider Nurse Practitioner Critical Care Medicine; PCP Internal Medicine
DX: S61.211A Laceration without foreign body of left index finger without damage to nail, initial encounter (principal); W29.8XXA Contact with other powered hand tools and household machinery, initial encounter; Z23 Encounter for immunization
CPT/HCPCS: 13132; 73140; 90471; 99283; 90715

== ENCOUNTER 2021-09-04 13:52 | Emergency (ER) | payer OTHER, SELFPAY ==
[2019-03-22 16:34] VITALS: BMI 42.5
[2021-09-04 14:20] VITALS: BP 157/72; PULSE 54; RESP 18; TEMP 36.6; O2SAT 97; BMI 35.9
--- NOTE | 2021-09-04 14:32 | DI.RAD.S_ITS ---
PROCEDURE: XR SHOULDER RT MIN 2V INDICATIONS: trip and fall, pain to joint TECHNIQUE: 2 views of the shoulder were acquired. COMPARISON: None. FINDINGS: Bones: No fractures or dislocations. No suspicious bony lesions. Visualized ribs appear intact. Severe acromioclavicular degenerative narrowing. Soft tissues: No suspicious soft tissue calcifications. IMPRESSION: No visualized acute fracture or dislocation. However, if clinical concern and/or pain persist, short interval imaging followup in 7-10 days is recommended, as occult injury cannot be definitively excluded. Dictated by: Catherine Balbuena M.D. on 09/04/2021 at 15:05 Approved by: Catherine Balbuena M.D. on 09/04/2021 at 15:06
--- NOTE | 2021-09-04 15:21 | ED.FALL ---
HPI - Fall <[place] Mary Acosta [facility] - Last Filed: 09/04/21 19:11> General Chief Complaint: Fall Stated Complaint: fell into a fire ring Time Seen by Provider: 09/04/21 15:04 Source: patient Mode of arrival: Ambulatory History of Present Illness HPI Narrative: This is a 71 year old male who presents to the emergency department after he tripped while cleaning up his camping year and fell backwards into a fire pit hitting the top of his right shoulder on the fire ring and now complaining of pain air. Patient denies any loss of consciousness, denies hitting his head, is not on any anticoagulants, denies any neck pain, mental status changes, headache, dizziness, or other symptom. He denies any pain over his scapula, states that he has full range of motion of his shoulder and denies any elbow wrist or other arm pain. He has tenderness right over the acromion process and denies any radiation of the pain. He denies any open wounds, denies taking any medications for pain prior to arrival. Patient has a history of type 2 diabetes, CKD, hyperlipidemia, ADHD, and has been stable on his current medications without any recent changes to his health. Patient endorses having a left 2nd finger laceration on 08/05/2021 from a table saw and it was sewed up by myself and he states that it healed without any complications or deficit. Related Data Home Medications Medication Instructions Recorded Confirmed acetaminophen 650 mg 650 mg PO PRN PRN Pain, Mild ##0 08/24/16 07/31/21 tablet,extended release calcitriol 0.25 mcg capsule 1 cap PO DAILY 08/25/17 07/31/21 potassium citrate 10 mEq (1,080 10 meq PO DAILY 03/22/19 07/31/21 mg) tablet,extended release cholecalciferol (vitamin D3) 50 50 mcg PO DAILY 09/25/19 07/31/21 mcg (2,000 unit) tablet omega-3 fatty acids-fish oil 360 1 cap PO DAILY 09/25/19 07/31/21 mg-1,200 mg capsule (Fish Oil) Sodium Bicarbonate 10 g PO BID 03/25/20 07/31/21 lactobacillus combination no.8 3 3,000 mmu cells PO DAILY 03/25/20 07/31/21 billion cell capsule (Adult Probiotic) Previous Rx's Medication Instructions Recorded Disabled Parking #1 ea 03/25/20 cyclobenzaprine 7.5 mg tablet 7.5 mg PO TID PRN muscle spasm #30 08/08/20 tabs metoprolol tartrate 50 mg tablet 50 mg PO BID #180 tabs 12/23/20 amlodipine 5 mg tablet 5 mg PO DAILY #90 tabs 01/14/21 One Touch Ultra Blue Test Strips #250 ea 01/26/21 gabapentin 300 mg capsule 600 mg PO BID #180 caps 07/28/21 citalopram 20 mg tablet 40 mg PO BEDTIME #180 tabs 08/03/21 adhesive bandage 2 X 3 3/4 #10 ea 08/05/21 (Telfa) mupirocin 2 % topical ointment 1 applic topical BID #15 grams 08/05/21 simvastatin 20 mg tablet 20 mg PO BEDTIME #90 tabs 08/19/21 diclofenac sodium 1 % topical gel 2 g topical QID PRN pain #100 grams 09/04/21 (Voltaren Arthritis Pain) hydrocodone 5 mg-acetaminophen 325 1 tab PO Q8H PRN pain #10 tabs 09/04/21 mg tablet lidocaine 5 % topical patch 1 patch topical BID PRN pain #15 ea 09/04/21 (Lidoderm) Allergies Allergy/AdvReac Type Severity Reaction Status Date / Time metformin AdvReac Intermediate TOXIC TO Verified 07/31/21 10:21 HIS K[facility]NEY Review of Systems <LEENA Torres - Last Filed: 09/04/21 19:11> Review of Systems Narrative: General: denies fever, chills, malaise, sweats, fatigue Head/Neck: denies headache, neck pain, dizziness Eyes: denies visual changes, eye pain Cardio: denies chest pain, palpitations, edema Respiratory: denies dyspnea, cough, orthopnea GI: denies abdominal pain, nausea, vomiting, or diarrhea : denies dysuria, hematuria, urinary retention, frequency or incontinence MSK: denies joint pain, muscle weakness, open wound, states the corner of his right shoulder hurts Skin: denies rash, itching, skin lesions or other Neuro: denies numbness, tingling Patient History <LEENA Torres - Last Filed: 09/04/21 19:11> Medical History Acne Arthritis Attention deficit hyperactivity disorder (ADHD) (05/21/15) Bilateral nephrolithiasis Calcium nephrolithiasis Chronic renal failure, stage 3b Depression (05/21/15) Depression (~2000) Erectile dysfunction Essential hypertension Foot pain Headache Kidney disease Lower urinary tract symptoms (LUTS) Mixed hyperlipidemia (05/21/15) Peripheral polyneuropathy (10/21/16) Plantar warts (~1960) Shoulder pain Type 2 diabetes mellitus without complication (05/21/15) Family History Mother Age: 89 Cerebrovascular accident (CVA), unspecified mechanism Social History household members: spouse Smoking Status: Former smoker alcohol intake: former Smoking Status: Former smoker Substance Use Type: does not use Exam <LEENA Torres - Last Filed: 09/04/21 19:11> Narrative Exam Narrative: Independently reviewed vitals signs and nursing notes. General: cooperative, comfortable, in no acute distress, well groomed Head: atraumatic, symmetrical facial expressions Neck: supple Eyes: equal round and reactive, EOMI, conjunctiva normal Nose: nares patent, no rhinorrhea Mouth/Throat: moist mucus membranes Cardiovascular: regular rate and rhythm, no peripheral edema, warm extremities Respiratory: normal effort, able to speak in complete sentences, no audible wheezing, stridor, or rales. No retractions or tachypnea. GI: abdomen soft, nontender to palpation, nondistended, no masses, no exquisite tenderness with exam, without guarding or rebound. MSK: moves all extremities, neurovascularly intact, no weakness, normal tone, significant tenderness over the acromion process, no range of motion deficit with flexion, extension, internal or external rotation. Radial pulse is 2 +, patient has a history of polyneuropathy with some mild sensation changes at baseline in his fingertips but no new changes currently. Is Skin: brisk capillary refill, no rash, no erythema Neuro: normal speech and cognition, A&O x3 Psych: mental status is grossly normal, congruent mood, normal affect, pleasant and cooperative Initial Vital Signs Initial Vital Signs: Vital Signs Temperature 97.8 F 09/04/21 14:20 Pulse Rate 54 L 09/04/21 14:20 Respiratory Rate 18 09/04/21 14:20 Blood Pressure 157/72 H 09/04/21 14:20 Pulse Oximetry 97 09/04/21 14:20 Oxygen Delivery Method 09/04/21 14:20 <Dusty Hennessy DO - Last Filed: 09/04/21 19:13> Initial Vital Signs Initial Vital Signs: Vital Signs Temperature 97.8 F 09/04/21 14:20 Pulse Rate 54 L 09/04/21 14:20 Respiratory Rate 18 09/04/21 14:20 Blood Pressure 157/72 H 09/04/21 14:20 Pulse Oximetry 97 09/04/21 14:20 Oxygen Delivery Method 09/04/21 14:20 Procedures <LEENA Torres - Last Filed: 09/04/21 19:11> Orthopedic Splinting/Casting Injury #1: Side: right Upper Extremity Injury Location: shoulder Upper Extremity Immobilizer: sling/shoulder immobilizer Post splinting neuro exam: intact and no change Post splinting vascular exam: intact Placed by: Nursing Additional Comments: Patient reports improved pain as soon as sling was placed Course <LEENA Torres - Last Filed: 09/04/21 19:11> Orders Ordered: ED Orders 09/04/21 14:32 XR shoulder RT min 2V Stat Discontinued Medications Acetaminophen (Acetaminophen 325 Mg Tablet) 650 mg PO NOW ONE Stop: 09/04/21 15:21 Last Admin: 09/04/21 15:31 Dose: 650 mg Documented By: VERÓNICA Lidocaine (Lidocaine Patch 1 Each Adh..Patch) 1 each TOP NOW ONE Stop: 09/04/21 15:21 Last Admin: 09/04/21 15:31 Dose: 1 each Documented By: PENDING SALE TO [facility] Vital Signs Vital signs: Vital Signs - 8 hr 09/04/21 14:20 09/04/21 15:45 Temperature 97.8 F Pulse Rate 54 L 86 Respiratory Rate 18 16 Blood Pressure 157/72 H 156/88 H Pulse Oximetry 97 98 Oxygen Delivery Method Room Air Room Air <Dusty Hennessy DO - Last Filed: 09/04/21 19:13> Orders Ordered: ED Orders 09/04/21 14:32 XR shoulder RT min 2V Stat Discontinued Medications Acetaminophen (Acetaminophen 325 Mg Tablet) 650 mg PO NOW ONE Stop: 09/04/21 15:21 Last Admin: 09/04/21 15:31 Dose: 650 mg Documented By: VERÓNICA Lidocaine (Lidocaine Patch 1 Each Adh..Patch) 1 each TOP NOW ONE Stop: 09/04/21 15:21 Last Admin: 09/04/21 15:31 Dose: 1 each Documented By: VERÓNICA Vital Signs Vital signs: Vital Signs - 8 hr 09/04/21 14:20 09/04/21 15:45 Temperature 97.8 F Pulse Rate 54 L 86 Respiratory Rate 18 16 Blood Pressure 157/72 H 156/88 H Pulse Oximetry 97 98 Oxygen Delivery Method Room Air Room Air MDM - Fall <LEENA Torres - Last Filed: 09/04/21 19:11> Imaging Data Extremity x-ray #1: Radiologist's Impression: PROCEDURE:? XR SHOULDER RT MIN 2V ? INDICATIONS:? trip and fall, pain to joint ? TECHNIQUE:? 2 views of the shoulder were acquired.? ? COMPARISON:? None. ? FINDINGS:? ? Bones:? No fractures or dislocations.? No suspicious bony lesions.? Visualized ribs appear intact.? Severe acromioclavicular degenerative narrowing. ? Soft tissues:? No suspicious soft tissue calcifications.? ? IMPRESSION:? No visualized acute fracture or dislocation. However, if clinical concern and/or pain persist, short interval imaging followup in 7-10 days is recommended, as occult injury cannot be definitively excluded. ? ? Dictated by: Catherine Balbuena M.D. on 09/04/2021 at 15:05 ? ? Approved by: Catherine Balbuena M.D. on 09/04/2021 at 15:06 ? [facility] Narrative Medical decision making narrative: This is a 71-year-old male with history type 2 diabetes, arthritis, CKD who presents to the emergency department after he tripped on some camping equipment while packing up and fell backwards injuring the acromion process of his right shoulder. Patient does not have any range of motion deficit, denies any pain in his elbow wrist or hand. Denies any tenderness over his scapula to palpation. He had significant tenderness over his acromioclavicular joint, was fitted in a sling, states that it helped his pain quite well. X-ray shows no visualized acute fracture or dislocation, severe acromioclavicular degenerative narrowing otherwise ribs are intact. Patient was given Tylenol in the emergency department and a lidocaine patch. States that he feels a better, his prescribe diclofenac gel, lidocaine patches, hydrocodone for breakthrough pain and he understands that he might be more sore tomorrow than he is today. Encourage patient to stay hydrated, use the sling while he is up and walking, sleep upright in his recliner if this is the most helpful and follow up with Dr. Feldman if his pain is ongoing or persistent for a referral to physical therapy or a repeat x-ray to evaluate for fracture not seen on x-ray today. Encourage patient to use ice frequently over the next couple of days, uses medications as prescribed, and to return to the emergency department if he develops any new or worsening symptoms. Patient is appropriate and amenable to discharge home. Vital signs are stable on repeat examination is unremarkable. Patient has been informed of results. Patient has been given strict return to ER precautions for any new or worsening symptoms. Patient understands to follow up closely with outpatient providers as instructed. Patient understands plan and agrees to discharge home. All questions and concerns answered at this time. Discharge Plan Departure Patient Disposition: Home Clinical Impression: Injury of shoulder, right Qualifiers: Encounter type: initial encounter Qualified Code(s): S49.91XA - Unspecified injury of right shoulder and upper arm, initial encounter Fall Qualifiers: Encounter type: initial encounter Qualified Code(s): W19.XXXA - Unspecified fall, initial encounter Instructions: DI for Shoulder Pain, DI for AC Joint Separation Activity Restrictions/Additional Instructions: *You have been diagnosed with a right shoulder injury without any fractures or visible separation of the acromion. I have given you information about AC separation because this is where you are tender and jumpy when I touched the AC process. You may have a small separation that is not visible on x-ray and these are quite painful. It may take 1-2 weeks please for this to improve. Try using a lidocaine patch every 12 hours to see if this helps over where it is painful, take your Tylenol as you normally do, you may take hydrocodone for breakthrough pain in addition to that as needed. You can use ice for the next 2-3 days which may be helpful for your pain and reduce swelling. I recommend wearing the sling for as long as it is painful, and following up with Dr. Feldman if this injury is persistent beyond 1-2 weeks for physical therapy. I hope you feel better soon, thank you for trusting us with your care, enjoy the weather. *What to do: *Please continue to take your regular medications as directed. [x ] New medication prescriptions sent to your pharmacy: [ ] [ ] New medication written as a paper prescription [ ] No new medications given *Please follow up with your primary care provider in 2-3 days, call for an appointment. Let them know you were seen in the Emergency Department and that we asked that you be seen for follow-up. We will electronically transmit a record of today's note if your PCP is in our system *If you do not have a primary care provider please contact [phone] to establish care with one of the [facility] primary care providers. *Return to Emergency Department if you should have any new, worsening or concerning symptoms, such as [fever greater than 101F, chills, worsening pain, persistent vomiting or other bothersome symptoms] Prescriptions: New hydrocodone-acetaminophen 5-325 mg tablet 1 tab PO Q8H PRN (Reason: pain) Qty: 10 0RF lidocaine [Lidoderm] 5 % adhesive patch,medicated 1 patch topical BID PRN (Reason: pain) Qty: 15 0RF Rx Instructions: leave on most painful area for up to 12 hrs diclofenac sodium [Voltaren Arthritis Pain] 1 % gel 2 g topical QID PRN (Reason: pain) Qty: 100 0RF Rx Instructions: apply to single elbow, wrist or hand; for hand includes palm/fingers/back of hand No Action acetaminophen 650 MG tablet extended release 650 mg PO PRN PRN (Reason: Pain, Mild) Qty: 0 amlodipine 5 mg tablet 5 mg PO DAILY Qty: 90 3RF (DME) One Touch Ultra Blue Test Strips Qty: 250 5RF Rx Instructions: Use to test blood sugars twice daily gabapentin 300 mg capsule 600 mg PO BID Qty: 180 0RF Rx Instructions: TAKE 2 CAPSULES BY MOUTH TWICE DAILY citalopram 20 mg tablet 40 mg PO BEDTIME Qty: 180 1RF Rx Instructions: TAKE 2 TABLETS(40MG) BY MOUTH EVERY NIGHT AT BEDTIME simvastatin 20 mg tablet 20 mg PO BEDTIME Qty: 90 3RF Sodium Bicarbonate 10 g PO BID Rx Instructions: 1 tab morning and night Adult Probiotic 3 billion cell capsule 3,000 mmu cells PO DAILY Rx Instructions: administer with a meal (DME) Disabled Parking See Rx Instructions .ROUTE .MEDSUPPLY Qty: 1 0RF Rx Instructions: Patient qualifies for disabled parking as per the attached form. cyclobenzaprine 7.5 mg tablet 7.5 mg PO TID PRN (Reason: muscle spasm) Qty: 30 0RF cholecalciferol (vitamin D3) 50 mcg (2,000 unit) tablet 50 mcg PO DAILY omega-3 fatty acids-fish oil [Fish Oil] 360-1,200 mg capsule 1 cap PO DAILY metoprolol tartrate 50 mg tablet 50 mg PO BID Qty: 180 3RF potassium citrate 10 mEq (1,080 mg) Tablet Extended Release 10 meq PO DAILY mupirocin 2 % ointment 1 applic topical BID Qty: 15 0RF (DME) Telfa 2 X 3 3/4 bandage See Rx Instructions .Route Qty: 10 0RF Rx Instructions: As directed calcitriol 0.25 mcg capsule 1 cap PO DAILY Referrals: Derrick Feldman MD [Primary Care Provider] - Visit Report Forms: Patient Portal/API <Dusty Hennessy DO - Last Filed: 09/04/21 19:13> Cosign ED Attending Cosignature Attestation: Dr Hennessy Co-Sign Statement: I was available for consultation during this patient's emergency department visit. This chart is signed by myself for administrative purposes only. I did not have direct contact with this patient during this visit. They were seen independently by the APC.
[2021-09-04] MEDS: LIDOCAINE PATCH 1 EACH ADH..PATCH TOP (15:31)
[2021-09-04] MEDS: ACETAMINOPHEN 325 MG TABLET 650 MG PO (15:31)
[2021-09-04 15:45] VITALS: BP 156/88; PULSE 86; RESP 16; O2SAT 98
== END 2021-09-04 15:46 | disposition home or self-care (01) ==
PROVIDERS: Emergency Provider Nurse Practitioner Critical Care Medicine; PCP Internal Medicine
DX: S49.91XA Unspecified injury of right shoulder and upper arm, initial encounter (principal); W19.XXXA Unspecified fall, initial encounter
CPT/HCPCS: 73030; 99283; 99284

== ENCOUNTER → 2021-11-03 07:35 | Outpatient (CLI) | payer OTHER, SELFPAY ==
[2019-03-22 16:34] VITALS: BMI 42.5
[2021-11-03 09:12] LABS: Hematocrit 42.5 % (41-53); Hemoglobin 14.7 g/dL (13.5-17.5)
[2021-11-03 09:34] LABS: BUN Creatinine Ratio 17.4 (6-22); Blood Urea Nitrogen 41 mg/dL (9-20); Calcium 8.7 mg/dL (8.4-10.2); Carbon Dioxide 29 mmol/L (22-32); Chloride 105 mmol/L (98-107); Estimated Glomerular Filt Rate 29 mL/min (>60); Glucose 141 mg/dL (80-110); HEMOLYSIS 41 (0-50); Potassium 4.8 mmol/L (3.4-5.1); Sodium 141 mmol/L (137-145)
[2021-11-04 08:58] LABS: Parathyroid Hormone Int 70 pg/mL (15-65)
== END ==
PROVIDERS: PCP Internal Medicine; Referring Provider Student in an Organized Health Care Education/Training Program; Visit Provider Student in an Organized Health Care Education/Training Program
DX: N05.9 Unspecified nephritic syndrome with unspecified morphologic changes (principal); D64.9 Anemia, unspecified; N25.81 Secondary hyperparathyroidism of renal origin
CPT/HCPCS: 36415; 80048; 83970; 85014; 85018

== ENCOUNTER → 2022-01-28 10:03 | Outpatient (CLI) | payer OTHER, SELFPAY ==
[2019-03-22 16:34] VITALS: BMI 42.5
[2022-01-28 11:04] LABS: BUN Creatinine Ratio 15.8 (6-22); Blood Urea Nitrogen 41 mg/dL (9-20); Calcium 9.2 mg/dL (8.4-10.2); Carbon Dioxide 31 mmol/L (22-32); Chloride 104 mmol/L (98-107); Estimated Glomerular Filt Rate 25 mL/min (>60); Glucose 139 mg/dL (80-110); HEMOLYSIS < 15 (0-50); Potassium 4.8 mmol/L (3.4-5.1); Sodium 141 mmol/L (137-145)
[2022-01-28 11:23] LABS: Hemoglobin A1C% w Est Avg Glu 6.7 % (4.0-6.0)
== END ==
PROVIDERS: PCP Internal Medicine; Referring Provider Internal Medicine; Visit Provider Internal Medicine
DX: E11.9 Type 2 diabetes mellitus without complications (principal); N18.32 Chronic kidney disease, stage 3b
CPT/HCPCS: 36415; 80048; 83036

== ENCOUNTER → 2022-02-01 10:39 | Outpatient (CLI) | payer OTHER, SELFPAY ==
[2019-03-22 16:34] VITALS: BMI 42.5
[2022-02-02 13:34] LABS: Fecal Immunochemical Test Negative (Negative)
== END ==
PROVIDERS: PCP Internal Medicine; Referring Provider Internal Medicine; Visit Provider Internal Medicine
DX: Z12.11 Encounter for screening for malignant neoplasm of colon (principal)
CPT/HCPCS: 82274

== ENCOUNTER → 2022-02-18 07:17 | Outpatient (CLI) | payer OTHER, SELFPAY ==
[2019-03-22 16:34] VITALS: BMI 42.5
[2022-02-18 08:19] LABS: BUN Creatinine Ratio 17.9 (6-22); Blood Urea Nitrogen 46 mg/dL (9-20); Calcium 9.8 mg/dL (8.4-10.2); Carbon Dioxide 27 mmol/L (22-32); Chloride 106 mmol/L (98-107); Estimated Glomerular Filt Rate 26 mL/min (>60); Glucose 140 mg/dL (80-110); HEMOLYSIS 16 (0-50); Potassium 4.7 mmol/L (3.4-5.1); Sodium 140 mmol/L (137-145)
[2022-02-18 08:21] LABS: Hematocrit 44.4 % (41-53); Hemoglobin 15.3 g/dL (13.5-17.5)
[2022-02-19 09:12] LABS: Parathyroid Hormone Int 34 pg/mL (15-65)
== END ==
PROVIDERS: PCP Internal Medicine; Referring Provider Student in an Organized Health Care Education/Training Program; Visit Provider Student in an Organized Health Care Education/Training Program
DX: N05.9 Unspecified nephritic syndrome with unspecified morphologic changes (principal); D64.9 Anemia, unspecified; N25.81 Secondary hyperparathyroidism of renal origin
CPT/HCPCS: 36415; 80048; 83970; 85014; 85018

== ENCOUNTER 2022-04-27 06:59 | Emergency (ER) | payer OTHER, SELFPAY ==
[2019-03-22 16:34] VITALS: BMI 42.5
[2022-04-27] VITALS (9 sets, daily range): BP systolic 169–213; BP diastolic 73–99; PULSE 40–49; RESP 18; TEMP 37.1; O2SAT 95–98; BMI 42.5
--- NOTE | 2022-04-27 07:15 | ED.GENADULT ---
HPI - General Adult General Chief complaint: Back Pain/Injury Stated complaint: right abd pain and rt side back pain Time Seen by Provider: 04/27/22 07:14 History of Present Illness HPI narrative: 71-year-old male former smoker with history hypertension, hyperlipidemia, kidney stones, peripheral neuropathy, chronic renal failure, type 2 diabetes and frequent episodes of back pain presents with a chief complaint of a few days of severe right flank pain. He denies fever or chills. He is had no nausea, vomiting or diarrhea. He denies any dysuria, frequency or urgency. He states the pain is severe, sharp and stabbing and seems to be made worse with motion and improves with rest though on occasion it seems to ramp up without any obvious provocation. It does on occasion wrap around his right side and in some ways reminds him of prior kidney stones and others is suggestive of musculoskeletal issues. He has a chronic gait disturbance and falls frequently, most recently about 2 weeks ago and did strike his right mid back on a hard surface but denies any midline or bony point tenderness. He has tried Tylenol extra-strength but denies any other attempts at intervention. Related Data Home Medications Medication Instructions Recorded Confirmed acetaminophen 650 mg 650 mg PO PRN PRN Pain, Mild ##0 08/24/16 02/01/22 tablet,extended release potassium citrate 10 mEq (1,080 10 meq PO DAILY 03/22/19 02/01/22 mg) tablet,extended release cholecalciferol (vitamin D3) 50 50 mcg PO DAILY 09/25/19 02/01/22 mcg (2,000 unit) tablet omega-3 fatty acids-fish oil 360 1 cap PO DAILY 09/25/19 02/01/22 mg-1,200 mg capsule (Fish Oil) Sodium Bicarbonate 10 g PO BID 03/25/20 02/01/22 lactobacillus combination no.8 3 3,000 mmu cells PO DAILY 03/25/20 02/01/22 billion cell capsule (Adult Probiotic) Previous Rx's Medication Instructions Recorded Disabled Parking #1 ea 03/25/20 One Touch Ultra Blue Test Strips #250 ea 01/26/21 simvastatin 20 mg tablet 20 mg PO BEDTIME #90 tabs 08/19/21 amlodipine 5 mg tablet 5 mg PO DAILY #90 tabs 01/13/22 metoprolol tartrate 50 mg tablet 50 mg PO BID #180 tabs 01/13/22 citalopram 20 mg tablet 40 mg PO BEDTIME #180 tabs 01/25/22 calcitriol 0.25 mcg capsule 0.25 mcg PO DAILY #90 caps 02/01/22 gabapentin 300 mg capsule 600 mg PO BID #180 caps 03/11/22 cephalexin 500 mg capsule 500 mg PO BID #14 caps 04/27/22 lidocaine 5 % topical patch 1 patch topical DAILY #15 ea 04/27/22 (Lidoderm) tamsulosin 0.4 mg capsule (Flomax) 0.4 mg PO DAILY #30 caps 04/27/22 Allergies Allergy/AdvReac Type Severity Reaction Status Date / Time metformin AdvReac Intermediate TOXIC TO Verified 02/01/22 09:45 HIS KIDNEY Review of Systems Review of Systems Narrative: GENERAL: See HPI HEENT: Denies sinus pain, ear pain, sore throat, difficulty swallowing, dizziness. RESPIRATORY: Denies dyspnea, cough, wheezing, hemoptysis, sputum. CARDIOVASCULAR: Denies chest pain, palpitations, orthopnea, edema, GASTROINTESTINAL: Denies nausea, vomiting, abdominal pain, diarrhea, constipation, melena. : See HPI MUSCULOSKELETAL: See HPI SKIN: Denies rash, skin lesions, or other NEUROLOGIC: Denies weakness, headache, numbness, change in speech, confusion, seizures, incoordination. PSYCHIATRIC: No concerning psychosocial issues. 12 point review of systems is negative except for those stated above Patient History Medical History Acne Arthritis Attention deficit hyperactivity disorder (ADHD) (05/21/15) Bilateral nephrolithiasis Calcium nephrolithiasis Chronic renal failure, stage 3b Depression (05/21/15) Depression (~1999) Erectile dysfunction Essential hypertension Foot pain Headache Kidney disease Lower urinary tract symptoms (LUTS) Mixed hyperlipidemia (05/21/15) Peripheral polyneuropathy (10/21/16) Plantar warts (~1960) Shoulder pain Type 2 diabetes mellitus without complication (05/21/15) Family History Mother Age: 90 Cerebrovascular accident (CVA), unspecified mechanism Social History household members: spouse Smoking Status: Former smoker alcohol intake: former Smoking Status: Former smoker Substance Use Type: does not use Exam Narrative Exam Narrative: GENERAL: [71] year old patient appears stated age. Well-developed patient, in moderate distress. Obviously uncomfortable HEAD: Atraumatic. Normocephalic. EYES: Pupils equal round and reactive. Extraocular motions intact. No scleral icterus. No injection or drainage. ENT: Nose without bleeding, purulent drainage. Throat without erythema, tonsillar hypertrophy or exudate. Airway patent. NECK: Trachea midline. Non tender CARDIOVASCULAR: Regular rate and rhythm without murmurs, gallops, or rubs. RESPIRATORY: Clear to auscultation. Breath sounds equal bilaterally. No wheezes, rales, or rhonchi. GASTROINTESTINAL: Abdomen soft, non-tender, nondistended. EXTREMITIES: No edema or joint tenderness. BACK: heating fixture tender but free of any obvious external abnormalities. Patient exam notes decreased range of motion and muscle spasm, but no CVA tenderness, or vertebral point tenderness. There are no symptoms of cauda equina such as saddle anesthesia, and decreased reflexes, decreased sensation or strength. NEURO: AOx3. SKIN: No rash or erythema of visible areas Initial Vital Signs Initial Vital Signs: Vital Signs Pulse Oximetry 95 04/27/22 07:10 Course Orders Ordered: ED Orders 04/27/22 07:20 BMP [Basic Metabolic Panel] Stat CBC Auto Diff [Complete Blood Count AUTO DIFF] Stat 04/27/22 08:26 CT kidney ureter bladder (KUB) Stat 04/27/22 09:56 Urine Culture Stat Urine Microscopic Stat Discontinued Medications Sodium Chloride (Normal Saline 0.9%) 500 mls @ 1,000 mls/hr IV BOLUS ONE Stop: 04/27/22 08:08 Last Infusion: 04/27/22 08:26 Dose: 0 mls/hr Documented By: Admin: 04/27/22 07:52 Dose: 1,000 mls/hr Documented By: LAMINE Ketorolac Tromethamine (Ketorolac 30 Mg/Ml Vial) 15 mg IV NOW ONE Stop: 04/27/22 07:40 Last Admin: 04/27/22 07:52 Dose: 15 mg Documented By: LAMINE Lidocaine (Lidocaine Patch 1 Each Adh..Patch) 1 each TOP NOW ONE Stop: 04/27/22 07:40 Last Admin: 04/27/22 07:52 Dose: 1 each Documented By: MLM Lidocaine HCl (Lidocaine 2% (Glydo) 6 Ml Gel) 6 ml TOP NOW ONE Stop: 04/27/22 10:20 Last Admin: 04/27/22 10:52 Dose: 6 ml Documented By: NR Reevaluation(s) Reevaluation #1: significant improvement after above stated therapies Reevaluation #2: patient finally able to urinate, postvoid residual notes greater than 300 cc Vital Signs Vital signs: Vital Signs - 8 hr 04/27/22 07:16 04/27/22 07:10 04/27/22 07:12 Temperature 98.7 F Pulse Rate 49 L Respiratory Rate 18 Blood Pressure 213/93 H 213/93 H Pulse Oximetry 97 95 Oxygen Delivery Method Room Air 04/27/22 07:12 04/27/22 09:59 04/27/22 10:00 Temperature Pulse Rate 49 L 41 L 45 L Respiratory Rate Blood Pressure Pulse Oximetry 96 97 97 Oxygen Delivery Method 04/27/22 10:01 04/27/22 10:01 Temperature Pulse Rate 40 L Respiratory Rate Blood Pressure 169/73 H Pulse Oximetry 98 Oxygen Delivery Method Medical Decision Making Lab Data 04/27/22 07:20 04/27/22 07:20 Labs: Lab Results 04/27/22 04/27/22 04/27/22 Range/Units 07:20 07:20 09:56 WBC 6.3 (4.5-11.0) X10^3/uL RBC 4.44 L (4.5-5.9) X10^6/uL Hgb 15.1 (13.5-17.5) g/dL Hct 43.6 (41-53) % MCV 98.2 (80-100) fL MCH 34.0 (26-34) PG MCHC 34.6 (30-36) % RDW 13.8 (11.6-14.8) % Plt Count 187 (150-400) X10^3/uL Neut % (Auto) 61.0 (50-75) % Lymph % (Auto) 22.8 L (25-40) % [place] % (Auto) 9.8 (3-14) % Eos % (Auto) 5.5 H (2-4) % Baso % (Auto) 0.9 (0-2) % Neut # (Auto) 3800 (0078-7653) /uL Lymph # (Auto) 1400 (9310-6351) /uL [place] # (Auto) 600 (0-900) /uL Eos # (Auto) 300 (0-450) /uL Baso # (Auto) 100 (0-100) /uL Sodium 140 (137-145) mmol/L Potassium 4.7 (3.4-5.1) mmol/L Chloride 106 (98-107) mmol/L Carbon Dioxide 24 (22-32) mmol/L BUN 50 H (9-20) mg/dL Creatinine 2.46 H (0.66-1.25) mg/dL Estimated GFR 27 L (>60) mL/min BUN/Creatinine Ratio 20.3 (6-22) Glucose 135 H (80-110) mg/dL Calcium 9.5 (8.4-10.2) mg/dL Urine RBC 10-30/hpf H (0-5/HPF) Urine WBC 30-100/hpf H (0-5/HPF) Ur Squamous Epith Cells 0-1 /hpf (0-5/HPF) Urine Bacteria Moderate (10-30) H (None) Ur Culture Indicated? Specimen cultured Urine Dip Bedside Urine Glucose Negative Bedside Urine Bilirubin - Negative Bedside Urine Ketone - Negative Urine Specific [place] 1.025 Bedside Urine Occult Blood ++ Bedside Urine pH 6.0 Bedside Urine Protein ++ 100 Bedside Urine Urobilinogen - Negative Bedside Urine Nitrite - Negative Bedside Urine Leukocytes - Negative Esterase Point of care testing: Urine Dip Bedside Urine Glucose Negative Bedside Urine Bilirubin - Negative Bedside Urine Ketone - Negative Urine Specific [place] 1.025 Bedside Urine Occult Blood ++ Bedside Urine pH 6.0 Bedside Urine Protein ++ 100 Bedside Urine Urobilinogen - Negative Bedside Urine Nitrite - Negative Bedside Urine Leukocytes - Negative Esterase Imaging Data CT scan - abdomen/pelvis: Radiologist's Impression: [address] [address] [address] Scan Report Signed Patient: Giovanni Mauricio MR#: [id number] : 1950 Acct:[id number] Age/Sex: 71 / M Date of Service: 04/27/22 Loc: ED Accession Number: [id number] ?? Procedure: CT kidney ureter bladder (KUB) Ordering Provider: Jay Duggan D.O. PROCEDURE:? CT KIDNEY URETER BLADDER (KUB) ? INDICATIONS:? severe R flank pain ? TECHNIQUE:? Axial sections were acquired from the lung bases to the pubic symphysis.? Coronal and sagittal reformats were performed.? For radiation dose reduction, the following was used: ?automated exposure control, adjustment of mA and/or kV according to patient size.? ? COMPARISON:? [facility], CT, CT KIDNEY URETER BLADDER (KUB), 12/18/2019, 12:02. ? FINDINGS:? Image quality:? Excellent.? ? Lung bases:? No pleural effusion.? Punctate pulmonary nodule at the right lung base is unchanged.? ? Heart:? No significant findings. ? URINARY: Right Kidney:? Multiple staghorn like calcifications filling the calyces, unchanged.? The renal pelvis is clear.? (Measures 160 Hounsfield units, heterogeneous).? No hydronephrosis.? Minimal perinephric stranding.? This appears similar to the contralateral side. Right Ureter:? No hydroureter.? ? Left Kidney:? Inferior pole nonobstructing calculus measuring 1.1 cm, slightly increased in size compared to 2019. (Measures 350 Hounsfield units).? No hydronephrosis.? Minimal perinephric stranding which appears similar to contralateral side. Left Ureter:? No hydroureter.? ? Bladder:? Normal wall thickness. No stones. ? ? ? ABDOMEN: Liver:? Calcified granuloma.? ? Gallbladder:? Within normal limits. Biliary ducts:? Unremarkable.? ? Pancreas:? Unremarkable.? ? Spleen:? Unremarkable.? ? Adrenal Glands:? No nodule. ? Stomach and Bowel:? Stomach is not distended.? No small bowel obstruction.? Diverticulosis.? Inflammatory change about the distal descending colon in the left lower quadrant, ().? No extraluminal gas is seen.? No fluid collection.? Normal appendix. Peritoneum:? No gross ascites.? No gross pneumoperitoneum. ? Ventral Wall:? Tiny umbilical hernia. Abdominal Nodes:? No enlarged retroperitoneal or mesenteric lymph nodes.? Vessels:? Aorta and inferior vena cava are normal in size.? Mild calcified plaque. ? PELVIS: Pelvic Organs:? Prominent prostate gland.? ? Pelvic Nodes: Unremarkable. Miscellaneous: No inguinal hernias are seen. ? ? ? Bones:? Left L5 pars defect.? No suspicious lesion.? Left hip bone island.? No compression fracture. ? IMPRESSION: 1. Left lower quadrant mild diverticulitis.? No abscess. Recommend follow-up colonoscopy if not recently performed. ? 2. Staghorn like calculi filling the right renal calices, not significantly changed.? This could be seen in the setting of nephrocalcinosis.? Larger nonobstructing left kidney stone.? No hydronephrosis. ? ? Dictated by: Myles Mohr M.D. on 04/27/2022 at 8:52 ? ? Approved by: Myles Mohr M.D. on 04/27/2022 at 9:06 ? MDM Narrative Medical decision making narrative: CC: 71-year-old male with right flank pain that radiates into right groin, with recent injury as well as history of kidney stones Complicating co-morbidities: Age, diabetes, renal failure, hypertension, hyperlipidemia Data collected from: Patient Medical records reviewed: Multiple prior notes in our EMR Differential considered, but not limited to: Musculoskeletal, rib fracture, contusion, kidney stone, pyelonephritis Exam documented above, pertinent findings include: Tender to palpate in right flank, abdomen soft and nontender Lab Test results independently reviewed as above. Pertinent findings: Blood in urine POC no evidence of infectious process, otherwise unremarkable, however UA strongly suggests infectious process Independently reviewed EKG as above Imaging studies independently reviewed: CT KUB without any significant findings in the right flank, there is suggestion of mild diverticulitis in the left lower quadrant Treatments: Patient with complete resolution of symptoms after low-dose Toradol and Lidoderm patch. His symptoms completely resolved prior to emptying bladder Re-evaluations: See above Discussion: Patient with right flank pain worse with palpation and range of motion. Complete resolution of symptoms with Lidoderm and Toradol. Pain that brought patient and most likely musculoskeletal in nature. We did evaluate for other diagnoses such as kidney stone, pyelonephritis urine POC unremarkable, but UA strongly suggestive of UTI. The CT does make mention of the possibility of early, mild left lower quadrant diverticulitis. Patient has no pain here, no abnormal labs, there is no evidence of perforation or abscess. No indication for antibiotics at this time. Finally patient has urinary retention with postvoid residual greater than 300 cc, Barahona catheter placed, patient started on Flomax and encouraged to follow with his previously established urologist Dr. Wild. Disposition: see below, along with detailed discharge instructions that have been reviewed with patient as well as indications for ED re-evaluation and additional outpatient follow up Discharge Plan Departure Patient Disposition: Home Clinical Impression: Acute urinary retention, Acute flank pain, Acute UTI, Acute pyelonephritis Instructions: DI for Kidney Infection, DI for Urinary Retention in Men, DI for Back Spasm Activity Restrictions/Additional Instructions: *You have been diagnosed with [right flank pain and urinary retention with UTI. As we discussed there is no evidence of an acute kidney stone or urine infection] *What to do: *Please continue to take your regular medications as directed. [ x] New medication prescriptions sent to your pharmacy: [[facility] ] [ ] New medication written as a paper prescription [ ] No new medications given *Please follow up with your primary care provider in 2-3 days, call for an appointment. Let them know you were seen in the Emergency Department and that we ask that you be seen in follow up. We will electronically transmit a record of today's note if your PCP is in our system * as we discussed please call Dr. Wild at the local urology office, let them know you were seen in the emergency department and we would like you seen in follow-up. *Return to Emergency Department if you should have any new, worsening or concerning symptoms, such as [fever greater than 101 F, shaking chills, worsening pain, persistent vomiting or other bothersome symptoms] Prescriptions: New tamsulosin [Flomax] 0.4 mg capsule 0.4 mg PO DAILY Qty: 30 0RF lidocaine [Lidoderm] 5 % adhesive patch,medicated 1 patch TOP DAILY Qty: 15 0RF Rx Instructions: leave on most painful area for 12 hrs cephalexin 500 mg capsule 500 mg PO BID Qty: 14 0RF No Action acetaminophen 650 MG tablet extended release 650 mg PO PRN PRN (Reason: Pain, Mild) Qty: 0 (DME) One Touch Ultra Blue Test Strips Qty: 250 5RF Rx Instructions: Use to test blood sugars twice daily simvastatin 20 mg tablet 20 mg PO BEDTIME Qty: 90 3RF amlodipine 5 mg tablet 5 mg PO DAILY Qty: 90 3RF metoprolol tartrate 50 mg tablet 50 mg PO BID Qty: 180 1RF citalopram 20 mg tablet 40 mg PO BEDTIME Qty: 180 3RF Rx Instructions: TAKE 2 TABLETS(40MG) BY MOUTH EVERY NIGHT AT BEDTIME gabapentin 300 mg capsule 600 mg PO BID Qty: 180 3RF Rx Instructions: TAKE 2 CAPSULES BY MOUTH TWICE DAILY Sodium Bicarbonate 10 g PO BID Rx Instructions: 1 tab morning and night Adult Probiotic 3 billion cell capsule 3,000 mmu cells PO DAILY Rx Instructions: administer with a meal (DME) Disabled Parking See Rx Instructions .ROUTE .MEDSUPPLY Qty: 1 0RF Rx Instructions: Patient qualifies for disabled parking as per the attached form. cholecalciferol (vitamin D3) 50 mcg (2,000 unit) tablet 50 mcg PO DAILY omega-3 fatty acids-fish oil [Fish Oil] 360-1,200 mg capsule 1 cap PO DAILY calcitriol 0.25 mcg capsule 0.25 mcg PO DAILY Qty: 90 3RF Rx Instructions: okay to fill today potassium citrate 10 mEq (1,080 mg) Tablet Extended Release 10 meq PO DAILY Referrals: Km Wild MD [Physician] - Derrick Feldman MD [Primary Care Provider] - Stand Alone Forms: Patient Portal/API
[2022-04-27 07:45] LABS: Add Manual Diff / Slide Review NO; Basophils Absolute Auto 100 /uL (0-100); Basophils Percent Auto 0.9 % (0-2); Eosinophils Absolute Auto 300 /uL (0-450); Eosinophils Percent Auto 5.5 % (2-4); Hematocrit 43.6 % (41-53); Hemoglobin 15.1 g/dL (13.5-17.5); Lymphocytes Absolute Auto 1400 /uL (1100-4500); Lymphocytes Percent Auto 22.8 % (25-40); Mean Corpuscular HGB Conc 34.6 % (30-36); Mean Corpuscular Volume 98.2 fL (80-100); Monocytes Absolute Auto 600 /uL (0-900); Monocytes Percent Auto 9.8 % (3-14); Neutrophils Absolute Auto 3800 /uL (1500-7000); Platelet Count 187 X10^3/uL (150-400); Red Blood Cell Count 4.44 X10^6/uL (4.5-5.9); Red Cell Distribution Width 13.8 % (11.6-14.8); White Blood Cell Count 6.3 X10^3/uL (4.5-11.0)
[2022-04-27 07:50] LABS: BUN Creatinine Ratio 20.3 (6-22); Blood Urea Nitrogen 50 mg/dL (9-20); Calcium 9.5 mg/dL (8.4-10.2); Carbon Dioxide 24 mmol/L (22-32); Chloride 106 mmol/L (98-107); Estimated Glomerular Filt Rate 27 mL/min (>60); Glucose 135 mg/dL (80-110); HEMOLYSIS 27 (0-50); Potassium 4.7 mmol/L (3.4-5.1); Sodium 140 mmol/L (137-145)
[2022-04-27] MEDS: LIDOCAINE PATCH 1 EACH ADH..PATCH TOP (07:52)
[2022-04-27] MEDS: KETOROLAC 30 MG/ML VIAL 15 MG IV (07:52)
[2022-04-27] MEDS: SODIUM CHLORIDE 0.9% 500 ML 1000 ML IV (07:52)
--- NOTE | 2022-04-27 08:26 | DI.CT.S_ITS ---
PROCEDURE: CT KIDNEY URETER BLADDER (KUB) INDICATIONS: severe R flank pain TECHNIQUE: Axial sections were acquired from the lung bases to the pubic symphysis. Coronal and sagittal reformats were performed. For radiation dose reduction, the following was used: automated exposure control, adjustment of mA and/or kV according to patient size. COMPARISON: [facility], CT, CT KIDNEY URETER BLADDER (KUB), 12/18/2019, 12:02. FINDINGS: Image quality: Excellent. Lung bases: No pleural effusion. Punctate pulmonary nodule at the right lung base is unchanged. Heart: No significant findings. URINARY: Right Kidney: Multiple staghorn like calcifications filling the calyces, unchanged. The renal pelvis is clear. (Measures 160 Hounsfield units, heterogeneous). No hydronephrosis. Minimal perinephric stranding. This appears similar to the contralateral side. Right Ureter: No hydroureter. Left Kidney: Inferior pole nonobstructing calculus measuring 1.1 cm, slightly increased in size compared to 2019. (Measures 350 Hounsfield units). No hydronephrosis. Minimal perinephric stranding which appears similar to contralateral side. Left Ureter: No hydroureter. Bladder: Normal wall thickness. No stones. ABDOMEN: Liver: Calcified granuloma. Gallbladder: Within normal limits. Biliary ducts: Unremarkable. Pancreas: Unremarkable. Spleen: Unremarkable. Adrenal Glands: No nodule. Stomach and Bowel: Stomach is not distended. No small bowel obstruction. Diverticulosis. Inflammatory change about the distal descending colon in the left lower quadrant, (2/56). No extraluminal gas is seen. No fluid collection. Normal appendix. Peritoneum: No gross ascites. No gross pneumoperitoneum. Ventral Wall: Tiny umbilical hernia. Abdominal Nodes: No enlarged retroperitoneal or mesenteric lymph nodes. Vessels: Aorta and inferior vena cava are normal in size. Mild calcified plaque. PELVIS: Pelvic Organs: Prominent prostate gland. Pelvic Nodes: Unremarkable. Miscellaneous: No inguinal hernias are seen. Bones: Left L5 pars defect. No suspicious lesion. Left hip bone island. No compression fracture. IMPRESSION: 1. Left lower quadrant mild diverticulitis. No abscess. Recommend follow-up colonoscopy if not recently performed. 2. Staghorn like calculi filling the right renal calices, not significantly changed. This could be seen in the setting of nephrocalcinosis. Larger nonobstructing left kidney stone. No hydronephrosis. Dictated by: Myles Mohr M.D. on 04/27/2022 at 8:52 Approved by: Myles Mohr M.D. on 04/27/2022 at 9:06
[2022-04-27 10:31] LABS: Bacteria Urine Moderate (10-30); Culture Indicated Urine Specimen Cultured; RBC Urine 10-30/HPF (0-5/HPF); Squamous Epithelial Cell Urine 0-1 /HPF (0-5/HPF); WBC Urine 30-100/HPF (0-5/HPF)
[2022-04-27] MEDS: LIDOCAINE 2% (GLYDO) 6 ML GEL TOP (10:52)
== END 2022-04-27 11:32 | disposition home or self-care (01) ==
PROVIDERS: Emergency Provider Emergency Medicine; PCP Internal Medicine
DX: N39.0 Urinary tract infection, site not specified (principal); R33.8 Other retention of urine; R10.9 Unspecified abdominal pain; N10 Acute pyelonephritis
CPT/HCPCS: 74176; 80048; 81003; 81015; 85025; 87086; 96361; 96374; 99284; J1885

== ENCOUNTER → 2022-05-07 08:06 | Outpatient (CLI) | payer OTHER, SELFPAY ==
[2022-05-03 15:30] VITALS: BMI 42.5
[2022-05-07 09:48] LABS: Prostate Specific Antigen 1.35 ng/mL (0.10-4.00)
== END ==
PROVIDERS: PCP Internal Medicine; Referring Provider Specialist; Visit Provider Specialist
DX: N52.9 Male erectile dysfunction, unspecified (principal); R39.9 Unspecified symptoms and signs involving the genitourinary system
CPT/HCPCS: 36415; 84153

== ENCOUNTER → 2022-06-23 08:11 | Outpatient (CLI) | payer OTHER, SELFPAY ==
[2022-05-25 16:18] VITALS: BMI 42.5
[2022-06-23 09:42] LABS: Hemoglobin 14.3 g/dL (13.5-17.5)
[2022-06-23 10:12] LABS: Alanine Aminotransferase 36 IU/L (<50); Albumin 3.6 g/dL (3.5-5.0); Albumin Globulin Ratio 1.4 (1.0-2.8); Alkaline Phosphatase 69 U/L (38-126); Aspartate Aminotransferase 27 IU/L (17-59); Bilirubin Total 0.7 mg/dL (0.2-1.3); Blood Urea Nitrogen 48 mg/dL (9-20); Calcium 9.3 mg/dL (8.4-10.2); Carbon Dioxide 29 mmol/L (22-32); Chloride 106 mmol/L (98-107); Estimated Glomerular Filt Rate 26 mL/min (>60); Globulin 2.6 g/dL (1.7-4.1); Glucose 136 mg/dL (80-110); HEMOLYSIS < 15 (0-50); Potassium 4.8 mmol/L (3.4-5.1); Sodium 142 mmol/L (137-145); Total Protein 6.2 g/dL (6.3-8.2)
[2022-06-23 10:41] LABS: Prostate Specific Antigen 0.865 ng/mL (0.10-4.00)
[2022-06-24 01:59] LABS: Labcorp Hemoglobin (Hb) A1c 6.3 % (4.8-5.6)
[2022-06-25 07:36] LABS: Parathyroid Hormone Int 54 pg/mL (15-65)
== END ==
PROVIDERS: PCP Internal Medicine; Referring Provider Specialist; Visit Provider Specialist
DX: N40.1 Benign prostatic hyperplasia with lower urinary tract symptoms (principal); N05.9 Unspecified nephritic syndrome with unspecified morphologic changes; D64.9 Anemia, unspecified; N25.81 Secondary hyperparathyroidism of renal origin; N13.8 Other obstructive and reflux uropathy; E11.9 Type 2 diabetes mellitus without complications; I10 Essential (primary) hypertension; N18.32 Chronic kidney disease, stage 3b
CPT/HCPCS: 36415; 80053; 83036; 83970; 84153; 85014; 85018

== ENCOUNTER → 2022-06-29 09:39 | Outpatient (CLI) | payer OTHER, SELFPAY ==
[2022-05-25 16:18] VITALS: BMI 42.5
[2022-06-29 11:04] LABS: TSH w/ Reflex to FT4 2.34 uIU/mL (0.47-4.68)
== END ==
PROVIDERS: PCP Internal Medicine; Visit Provider Internal Medicine
DX: R19.7 Diarrhea, unspecified (principal)
CPT/HCPCS: 84443

== ENCOUNTER → 2022-07-01 13:21 | Outpatient (CLI) | payer OTHER, SELFPAY ==
[2022-05-25 16:18] VITALS: BMI 42.5
== END ==
PROVIDERS: PCP Internal Medicine; Referring Provider Internal Medicine; Visit Provider Internal Medicine
DX: R19.7 Diarrhea, unspecified (principal)
CPT/HCPCS: 87045; 87899

== ENCOUNTER → 2022-09-24 10:16 | Outpatient (CLI) | payer OTHER, SELFPAY ==
[2022-05-25 16:18] VITALS: BMI 42.5
[2022-09-24 11:15] LABS: Hematocrit 41.9 % (41-53); Hemoglobin 14.2 g/dL (13.5-17.5)
[2022-09-24 11:51] LABS: BUN Creatinine Ratio 15.2 (6-22); Blood Urea Nitrogen 40 mg/dL (9-20); Calcium 8.9 mg/dL (8.4-10.2); Carbon Dioxide 30 mmol/L (22-32); Chloride 103 mmol/L (98-107); Estimated Glomerular Filt Rate 25 mL/min (>60); Glucose 165 mg/dL (80-110); HEMOLYSIS < 15 (0-50); Sodium 138 mmol/L (137-145)
[2022-09-25 09:30] LABS: Parathyroid Hormone Int 94 pg/mL (15-65)
== END ==
PROVIDERS: PCP Internal Medicine; Referring Provider Student in an Organized Health Care Education/Training Program; Visit Provider Student in an Organized Health Care Education/Training Program
DX: N05.9 Unspecified nephritic syndrome with unspecified morphologic changes (principal); D64.9 Anemia, unspecified; N25.81 Secondary hyperparathyroidism of renal origin
CPT/HCPCS: 36415; 80048; 83970; 85014; 85018

== ENCOUNTER → 2022-12-31 08:34 | Outpatient (CLI) | payer OTHER, SELFPAY ==
[2022-05-25 16:18] VITALS: BMI 42.5
[2022-12-31 10:34] LABS: Hemoglobin A1C% w Est Avg Glu 6.4 % (4.0-6.0)
[2022-12-31 10:58] LABS: Cholesterol 126 mg/dL (140-199); HDL Cholesterol 31 mg/dL (40-60); LDL Cholesterol Calculated 51 mg/dL (<100); Triglycerides 221 mg/dL (35-150)
== END ==
PROVIDERS: PCP Internal Medicine; Referring Provider Internal Medicine; Visit Provider Internal Medicine
DX: E11.9 Type 2 diabetes mellitus without complications (principal); N18.32 Chronic kidney disease, stage 3b; I10 Essential (primary) hypertension; E78.2 Mixed hyperlipidemia
CPT/HCPCS: 36415; 80061; 83036

== ENCOUNTER → 2023-01-12 07:51 | Outpatient (CLI) | payer OTHER, SELFPAY ==
[2022-05-25 16:18] VITALS: BMI 42.5
--- NOTE | 2023-01-12 07:54 | DI.CT.S_ITS ---
PROCEDURE: CT HEAD/BRAIN WO CON INDICATIONS: headache TECHNIQUE: Noncontrast 4.5 mm thick angled axial sections acquired from the foramen magnum to the vertex, with coronal and sagittal reformats. For radiation dose reduction, the following was used: automated exposure control, adjustment of mA and/or kV according to patient size. COMPARISON: [facility], CT, CT HEAD/BRAIN WO CON, 08/25/2017, 14:03. FINDINGS: Image quality: Excellent. CSF spaces: Basal cisterns are patent. No extra-axial fluid collections. The ventricles are symmetric in size and shape. Brain: No intracranial bleeds or masses. There is cerebral volume loss for age, with resultant ventricular and sulcal prominence. There are periventricular and deep white matter chronic small vessel ischemic changes. There is intracranial internal carotid artery atherosclerosis. Skull and face: Calvarium and visualized facial bones appear intact, without suspicious lesions. Bilateral lens replacements. Sinuses: Visualized sinuses and mastoids are clear. IMPRESSION: 1. No acute intracranial abnormalities. No cause for patient's symptoms is identified. 2. Age-related global volume loss and chronic microvascular ischemic changes. Dictated by: Jeb Blackwell M.D. on 01/12/2023 at 9:20 Approved by: Jeb Blackwell M.D. on 01/12/2023 at 9:21
== END ==
PROVIDERS: PCP Internal Medicine; Referring Provider Internal Medicine; Visit Provider Internal Medicine
DX: R51.9 Headache, unspecified (principal); I65.29 Occlusion and stenosis of unspecified carotid artery
CPT/HCPCS: 70450

== ENCOUNTER → 2023-02-15 10:55 | Outpatient (CLI) | payer OTHER, SELFPAY ==
[2022-05-25 16:18] VITALS: BMI 42.5
[2023-02-15 12:14] LABS: Hematocrit 39.6 % (41-53); Hemoglobin 13.8 g/dL (13.5-17.5)
[2023-02-15 12:26] LABS: BUN Creatinine Ratio 19.5 (6-22); Blood Urea Nitrogen 53 mg/dL (9-20); Calcium 9.9 mg/dL (8.4-10.2); Carbon Dioxide 27 mmol/L (22-32); Chloride 105 mmol/L (98-107); Estimated Glomerular Filt Rate 24 mL/min (>60); Glucose 173 mg/dL (80-110); HEMOLYSIS < 15 (0-50); Sodium 138 mmol/L (137-145)
[2023-02-15 12:29] LABS: Potassium 5.4 mmol/L (3.4-5.1)
[2023-02-17 08:19] LABS: Parathyroid Hormone Int 59 pg/mL (15-65)
== END ==
PROVIDERS: PCP Internal Medicine; Referring Provider Student in an Organized Health Care Education/Training Program; Visit Provider Student in an Organized Health Care Education/Training Program
DX: N05.9 Unspecified nephritic syndrome with unspecified morphologic changes (principal); D70.9 Neutropenia, unspecified; D63.1 Anemia in chronic kidney disease; N25.81 Secondary hyperparathyroidism of renal origin; R80.9 Proteinuria, unspecified
CPT/HCPCS: 36415; 80048; 83970; 85014; 85018

== ENCOUNTER → 2023-02-18 09:16 | Outpatient (CLI) | payer OTHER, SELFPAY ==
[2022-05-25 16:18] VITALS: BMI 42.5
[2023-02-18 11:34] LABS: HEMOLYSIS < 15 (0-50); Potassium 4.9 mmol/L (3.4-5.1)
== END ==
PROVIDERS: PCP Internal Medicine; Referring Provider Student in an Organized Health Care Education/Training Program; Visit Provider Student in an Organized Health Care Education/Training Program
DX: E87.5 Hyperkalemia (principal)
CPT/HCPCS: 36415; 84132

== ENCOUNTER → 2023-06-09 09:43 | Outpatient (CLI) | payer OTHER, SELFPAY ==
[2022-05-25 16:18] VITALS: BMI 42.5
[2023-06-09 10:36] LABS: Hematocrit 34.5 % (41-53); Hemoglobin 11.6 g/dL (13.5-17.5)
[2023-06-09 11:17] LABS: BUN Creatinine Ratio 14.1 (6-22); Blood Urea Nitrogen 54 mg/dL (9-20); Carbon Dioxide 22 mmol/L (22-32); Chloride 113 mmol/L (98-107); Estimated Glomerular Filt Rate 16 mL/min (>60); Glucose 175 mg/dL (80-110); HEMOLYSIS 21 (0-50); Potassium 4.7 mmol/L (3.4-5.1); Sodium 141 mmol/L (137-145)
[2023-06-11 09:45] LABS: Parathyroid Hormone Int 90 pg/mL (15-65)
== END ==
LOC: LAB 09:45
PROVIDERS: PCP Internal Medicine; Referring Provider Student in an Organized Health Care Education/Training Program; Visit Provider Student in an Organized Health Care Education/Training Program
DX: N05.9 Unspecified nephritic syndrome with unspecified morphologic changes (principal); D70.9 Neutropenia, unspecified; D63.1 Anemia in chronic kidney disease; N25.81 Secondary hyperparathyroidism of renal origin
CPT/HCPCS: 36415; 80048; 83970; 85014; 85018

== ENCOUNTER → 2023-06-29 12:15 | Outpatient (CLI) | payer OTHER, SELFPAY ==
[2022-05-25 16:18] VITALS: BMI 42.5
[2023-06-29 13:26] LABS: Hematocrit 35.1 % (41-53); Hemoglobin 11.9 g/dL (13.5-17.5)
[2023-06-29 13:35] LABS: Hemoglobin A1C% w Est Avg Glu 5.7 % (4.0-6.0)
[2023-06-29 13:51] LABS: Alanine Aminotransferase 39 IU/L (<50); Albumin 4.1 g/dL (3.5-5.0); Albumin Globulin Ratio 1.9 (1.0-2.8); Alkaline Phosphatase 69 U/L (38-126); Aspartate Aminotransferase 23 IU/L (17-59); BUN Creatinine Ratio 16.9 (6-22); Bilirubin Total 0.9 mg/dL (0.2-1.3); Blood Urea Nitrogen 84 mg/dL (9-20); Calcium 9.3 mg/dL (8.4-10.2); Carbon Dioxide 22 mmol/L (22-32); Chloride 110 mmol/L (98-107); Cholesterol 89 mg/dL (140-199); Estimated Glomerular Filt Rate 12 mL/min (>60); Globulin 2.2 g/dL (1.7-4.1); Glucose 100 mg/dL (80-110); HDL Cholesterol 28 mg/dL (40-60); HEMOLYSIS < 15 (0-50); LDL Cholesterol Calculated 34 mg/dL (<100); Potassium 4.6 mmol/L (3.4-5.1); Sodium 142 mmol/L (137-145); Total Protein 6.3 g/dL (6.3-8.2); Triglycerides 136 mg/dL (35-150)
[2023-07-01 07:28] LABS: Parathyroid Hormone Int 120 pg/mL (15-65)
== END ==
LOC: LAB 12:16
PROVIDERS: PCP Internal Medicine; Referring Provider Student in an Organized Health Care Education/Training Program; Visit Provider Student in an Organized Health Care Education/Training Program
DX: D70.9 Neutropenia, unspecified (principal); I12.9 Hypertensive chronic kidney disease with stage 1 through stage 4 chronic kidney disease, or unspecified chronic kidney disease; N18.32 Chronic kidney disease, stage 3b; D63.1 Anemia in chronic kidney disease; E11.9 Type 2 diabetes mellitus without complications; N25.81 Secondary hyperparathyroidism of renal origin
CPT/HCPCS: 36415; 80053; 80061; 83036; 83970; 85014; 85018

== ENCOUNTER → 2023-07-04 15:22 | Outpatient (CLI) | payer OTHER, SELFPAY ==
[2022-05-25 16:18] VITALS: BMI 42.5
[2023-07-04 18:40] LABS: Creatinine Urine Random 70.9 mg/dL
[2023-07-04 19:00] LABS: Microalbumi Creatinin Ratio Ur 640.3 ug/mg CR (<30); Microalbumin Urine Random 45.4 mg/dL (0-1.6)
== END ==
PROVIDERS: PCP Internal Medicine; Referring Provider Internal Medicine; Visit Provider Internal Medicine
DX: E11.9 Type 2 diabetes mellitus without complications (principal); I12.9 Hypertensive chronic kidney disease with stage 1 through stage 4 chronic kidney disease, or unspecified chronic kidney disease; N18.32 Chronic kidney disease, stage 3b
CPT/HCPCS: 82043; 82570

== ENCOUNTER 2023-07-05 15:33 | Emergency (ER) | payer OTHER, SELFPAY ==
[2022-05-25 16:18] VITALS: BMI 42.5
[2023-07-05 15:41] VITALS: PULSE 44; RESP 16; TEMP 35.9; O2SAT 98; BMI 44.1
--- NOTE | 2023-07-05 16:21 | PC.NURSE ---
Pt sent to ED today after having renal US ordered by Dr Restrepo. Pt has 7mm obstructing stone and pt advised to come to the ED by nephrology. Pt denies pain or any sx. Hx of CKD.
--- NOTE | 2023-07-05 17:02 | ED.GENADULT ---
HPI - General Adult General Chief complaint: Urogenital-Male Stated complaint: hydronephrosis on left, sent by Dr Restrepo Time Seen by Provider: 07/05/23 15:48 Source: patient Mode of arrival: Wheelchair History of Present Illness HPI narrative: 73-year-old gentleman with a history of diabetes and hypertension, chronic kidney disease with a history of obstructive uropathy. Seen by nephrology with increasing rise to creatinine. Has a long history of multiple kidney stones he states that he had a large stone in his right kidney 12-15 years ago that was never fully addressed. He has not having pain or tenderness with the increased creatinine an ultrasound was ordered. Found to left sided 12 mm proximal stone with moderate to severe hydronephrosis. Multiple stones on the right side without hydronephrosis. Ultrasound talked to Dr. Mendoza, nephrology who recommended ER evaluation. Patient is currently asymptomatic. Afebrile. He does complain of chronic diarrhea ongoing for the last 10 months that has not changed. Related Data Home Medications Medication Instructions Recorded Confirmed acetaminophen 650 mg 650 mg PO PRN PRN Pain, Mild ##0 08/24/16 01/07/23 tablet,extended release potassium citrate 10 mEq (1,080 10 meq PO DAILY 03/22/19 01/07/23 mg) tablet,extended release cholecalciferol (vitamin D3) 50 50 mcg PO DAILY 09/25/19 01/07/23 mcg (2,000 unit) tablet omega-3 fatty acids-fish oil 360 1 cap PO DAILY 09/25/19 01/07/23 mg-1,200 mg capsule (Fish Oil) Sodium Bicarbonate 10 g PO BID 03/25/20 01/07/23 lactobacillus combination no.8 3 3,000 mmu cells PO DAILY 03/25/20 01/07/23 billion cell capsule (Adult Probiotic) Previous Rx's Medication Instructions Recorded Disabled Parking #1 ea 03/25/20 One Touch Ultra Blue Test Strips #250 ea 01/26/21 calcitriol 0.25 mcg capsule 0.25 mcg PO DAILY #90 caps 02/01/22 tamsulosin 0.4 mg capsule (Flomax) 0.4 mg PO .B.i.d. #180 caps 05/12/22 simvastatin 20 mg tablet 20 mg PO BEDTIME #90 tabs 07/21/22 cholestyramine-aspartame 4 gram 4 g PO DAILY #60 ea 01/07/23 oral powder for susp in a packet (Cholestyramine Light) metoprolol tartrate 50 mg tablet 50 mg PO BID #180 tabs 01/10/23 citalopram 20 mg tablet 40 mg (2 x 20 mg) PO BEDTIME #180 01/13/23 tabs gabapentin 300 mg capsule 600 mg (2 x 300 mg) PO BID #180 03/09/23 caps amlodipine 5 mg tablet 5 mg PO BID #180 tabs 03/17/23 Allergies Allergy/AdvReac Type Severity Reaction Status Date / Time metformin AdvReac Intermediate TOXIC TO Verified 07/05/23 15:44 HIS KIDNEY Review of Systems Review of Systems Narrative: Pertinent positive and negative findings as per HPI Patient History Medical History (Updated 07/05/23 @ 18:15 by Julianne Aguiar MD) History of urinary retention Medullary sponge kidney BPH w urinary obs/LUTS Urinary retention Chronic renal failure, stage 3b Essential hypertension Bilateral nephrolithiasis Calcium nephrolithiasis Erectile dysfunction Lower urinary tract symptoms (LUTS) Arthritis Depression (~2000) Headache Shoulder pain Foot pain Plantar warts (~1960) Acne Kidney disease Peripheral polyneuropathy (10/21/16) Type 2 diabetes mellitus without complication (05/21/15) Mixed hyperlipidemia (05/21/15) Depression (05/21/15) Attention deficit hyperactivity disorder (ADHD) (05/21/15) Family History Mother Age: 91 Cerebrovascular accident (CVA), unspecified mechanism Social History household members: spouse Smoking Status: Former smoker alcohol intake: former Smoking Status: Former smoker Substance Use Type: does not use Exam Initial Vital Signs Initial Vital Signs: Vital Signs Temperature 96.6 F L 07/05/23 15:41 Pulse Rate 44 L 07/05/23 15:41 Respiratory Rate 16 07/05/23 15:41 Pulse Oximetry 98 07/05/23 15:41 Oxygen Delivery Method Room Air 07/05/23 15:41 General: Healthy appearing, in no acute distress. Able to give a complete and coherent history. Well-nourished well-developed HEENT: Moist mucous membranes, normal sclera with reactive pupils, Respiratory: Lungs are clear to auscultation, no wheezing no rales no rhonchi. Full and symmetrical air movement Cardiac: Regular rate and rhythm no murmurs no bruits Abdomen: Soft, nontender, good bowel tones, no flank pain Skin: Warm and dry, no rashes Neurologic: Grossly neurologically intact with no obvious asymmetries or abnormalities Psych: Cooperative, appropriate insight and affect Course Orders Ordered: ED Orders 07/05/23 17:30 Complete Blood Count AUTO DIFF Stat Comprehensive Metabolic Panel Stat Vital Signs Vital signs: Vital Signs - 8 hr 07/05/23 15:41 Temperature 96.6 F L Pulse Rate 44 L Respiratory Rate 16 Pulse Oximetry 98 Oxygen Delivery Method Room Air Medical Decision Making Lab Data 07/05/23 17:30 07/05/23 17:30 Labs: Lab Results 07/05/23 Range/Units 17:30 WBC 6.7 (4.5-11.0) X10^3/uL RBC 3.98 L (4.5-5.9) X10^6/uL Hgb 12.9 L (13.5-17.5) g/dL Hct 38.4 L (41-53) % MCV 96.5 (80-100) fL MCH 32.3 (26-34) PG MCHC 33.5 (30-36) % RDW 13.2 (11.6-14.8) % Plt Count 211 (150-400) X10^3/uL Neut % (Auto) 58.0 (50-75) % Lymph % (Auto) 25.7 (25-40) % Jefferson % (Auto) 9.6 (3-14) % Eos % (Auto) 5.6 H (2-4) % Baso % (Auto) 1.1 (0-2) % Neut # (Auto) 3900 (9969-8957) /uL Lymph # (Auto) 1700 (7454-0931) /uL Jefferson # (Auto) 600 (0-900) /uL Eos # (Auto) 400 (0-450) /uL Baso # (Auto) 100 (0-100) /uL Sodium 142 (137-145) mmol/L Potassium 4.1 (3.4-5.1) mmol/L Chloride 112 H (98-107) mmol/L Carbon Dioxide 21 L (22-32) mmol/L BUN 84 H (9-20) mg/dL Creatinine 5.23 H (0.66-1.25) mg/dL Estimated GFR 11 L (>60) mL/min BUN/Creatinine Ratio 16.1 (6-22) Glucose 104 (80-110) mg/dL Calcium 9.8 (8.4-10.2) mg/dL Total Bilirubin 0.9 (0.2-1.3) mg/dL AST 43 (17-59) IU/L ALT 38 (<50) IU/L Alkaline Phosphatase 83 (38-126) U/L Total Protein 7.6 (6.3-8.2) g/dL Albumin 4.7 (3.5-5.0) g/dL Globulin 2.9 (1.7-4.1) g/dL Albumin/Globulin Ratio 1.6 (1.0-2.8) Imaging Data CT scan from April 27, 2022: Radiologist's Impression: PROCEDURE: CT KIDNEY URETER BLADDER (KUB) INDICATIONS: severe R flank pain TECHNIQUE: Axial sections were acquired from the lung bases to the pubic symphysis. Coronal and sagittal reformats were performed. For radiation dose reduction, the following was used: automated exposure control, adjustment of mA and/or kV according to patient size. COMPARISON: [facility], CT, CT KIDNEY URETER BLADDER (KUB), 12/18/2019, 12:02. FINDINGS: Image quality: Excellent. Lung bases: No pleural effusion. Punctate pulmonary nodule at the right lung base is unchanged. Heart: No significant findings. URINARY: Right Kidney: Multiple staghorn like calcifications filling the calyces, unchanged. The renal pelvis is clear. (Measures 160 Hounsfield units, heterogeneous). No hydronephrosis. Minimal perinephric stranding. This appears similar to the contralateral side. Right Ureter: No hydroureter. Left Kidney: Inferior pole nonobstructing calculus measuring 1.1 cm, slightly increased in size compared to 2019. (Measures 350 Hounsfield units). No hydronephrosis. Minimal perinephric stranding which appears similar to contralateral side. Left Ureter: No hydroureter. Bladder: Normal wall thickness. No stones. ABDOMEN: Liver: Calcified granuloma. Gallbladder: Within normal limits. Biliary ducts: Unremarkable. Pancreas: Unremarkable. Spleen: Unremarkable. Adrenal Glands: No nodule. Stomach and Bowel: Stomach is not distended. No small bowel obstruction. Diverticulosis. Inflammatory change about the distal descending colon in the left lower quadrant, (). No extraluminal gas is seen. No fluid collection. Normal appendix. Peritoneum: No gross ascites. No gross pneumoperitoneum. Ventral Wall: Tiny umbilical hernia. Abdominal Nodes: No enlarged retroperitoneal or mesenteric lymph nodes. Vessels: Aorta and inferior vena cava are normal in size. Mild calcified plaque. PELVIS: Pelvic Organs: Prominent prostate gland. Pelvic Nodes: Unremarkable. Miscellaneous: No inguinal hernias are seen. Bones: Left L5 pars defect. No suspicious lesion. Left hip bone island. No compression fracture. IMPRESSION: 1. Left lower quadrant mild diverticulitis. No abscess. Recommend follow-up colonoscopy if not recently performed. 2. Staghorn like calculi filling the right renal calices, not significantly changed. This could be seen in the setting of nephrocalcinosis. Larger nonobstructing left kidney stone. No hydronephrosis. Dictated by: Myles Mohr M.D. on 04/27/2022 at 8:52 US - abdomen: Radiologist's Impression: Preliminary report indicates left moderate severe hydronephrosis with a 12 mm proximal stone Right side has multiple stones and no hydronephrosis MDM Narrative Medical decision making narrative: CC: Abnormal renal ultrasound, sent to the ER by his marketing graphics specialist Complicating co-morbidities: History of multiple kidney stones over the years Data collected from: patient Medical records reviewed: Notes from [facility] from January of 2019 are reviewed. Imaging studies from [facility] CT KUB are reviewed. Differential considered: Obstructive uropathy causing acute renal failure, obstructive uropathy not associated with his worsening renal failure Exam documented above, pertinent findings include: Patient's exam is benign, he has not having any acute symptoms form a large left stone that is causing hydronephrosis Lab Test results independently reviewed as above. Pertinent findings: Creatinine has been steadily increasing over the last 4 months. In February it was 2.7 May it was 3.8. June 4.. Currently pending. The rather rapid increase was what prompted the renal ultrasound CBC shows no significant leukocytosis, chronic stable anemia Imaging studies independently reviewed: Reports of ultrasound show left moderate to severe hydronephrosis secondary to a 12 mm proximal stone multiple nonobstructing stones without hydronephrosis on the right side Consultations: We will discuss with Nephrology - based on story Dr Mccoy (stations superintendent with no access to records) recommends urostomy tube. will discuss with urology. Discussion: 73-year-old gentleman with a long history of multiple kidney stones over the last 4 months has been having increasing creatinine and ultrasound today shows that his left kidney is obstructed with a 12 mm stone in the proximal ureter causing moderate hydronephrosis. He has not having any pain or complications aside from the gradually increasing creatinine. There was no evidence of sepsis or pyelonephritis. Both Urology and Nephrology have suggested the urostomy tube is going to be optimal. [employer] is sent to Dr. Mendoza so that he can arrange this for his patient as an outpatient Discharge Plan Departure Patient Disposition: Home Clinical Impression: Left ureteral calculus, Hydronephrosis with renal and ureteral calculous obstruction, Acute kidney injury Instructions: DI for Kidney Stones Activity Restrictions/Additional Instructions: Thank you for coming in today You do have multiple stones on the right side but they are not blocking You have a large stone on the left side that is blocking which may be contributing to your worsening renal function I spoke with the urologist and the on-call marketing graphics specialist. Both agreed that the most appropriate treatment for this is going to be a urostomy tube. This is a tube that is placed by an interventional radiologist through your back into the top portion of the kidney so the urine can drain directly. Once the urine is draining, the kidney we will begin to improve. Once the kidney begins to improve you will need an outpatient follow up appointment with the urologist to figure out how to best get the kidney stone out. I will contact Dr. Mendoza tomorrow to let him know results of today's visit. He will need to set up the Interventional Radiology appointment and procedure to place the urostomy tube. Please expect to hear from him tomorrow. If you find that you are getting worse or develop any new symptoms, please feel free to return to the emergency department for further evaluation. Prescriptions: No Action acetaminophen 650 MG tablet extended release 650 mg PO PRN PRN (Reason: Pain, Mild) Qty: 0 (DME) One Touch Ultra Blue Test Strips Qty: 250 5RF Rx Instructions: Use to test blood sugars twice daily simvastatin 20 mg tablet 20 mg PO BEDTIME Qty: 90 3RF metoprolol tartrate 50 mg tablet 50 mg PO BID Qty: 180 3RF citalopram 20 mg tablet 40 mg PO BEDTIME Qty: 180 3RF Rx Instructions: TAKE 2 TABLETS(40MG) BY MOUTH EVERY NIGHT AT BEDTIME gabapentin 300 mg capsule 600 mg PO BID Qty: 180 3RF Rx Instructions: TAKE 2 CAPSULES BY MOUTH TWICE DAILY amlodipine 5 mg tablet 5 mg PO BID Qty: 180 3RF Sodium Bicarbonate 10 g PO BID Rx Instructions: 1 tab morning and night Adult Probiotic 3 billion cell capsule 3,000 mmu cells PO DAILY Rx Instructions: administer with a meal (DME) Disabled Parking See Rx Instructions .ROUTE .MEDSUPPLY Qty: 1 0RF Rx Instructions: Patient qualifies for disabled parking as per the attached form. cholestyramine-aspartame [Cholestyramine Light] 4 gram powder in packet 4 g PO DAILY Qty: 60 3RF Rx Instructions: administer w/meal; avoid other meds within 1hr before or 4-6hr after dose cholecalciferol (vitamin D3) 50 mcg (2,000 unit) tablet 50 mcg PO DAILY omega-3 fatty acids-fish oil [Fish Oil] 360-1,200 mg capsule 1 cap PO DAILY calcitriol 0.25 mcg capsule 0.25 mcg PO DAILY Qty: 90 3RF Rx Instructions: okay to fill today potassium citrate 10 mEq (1,080 mg) Tablet Extended Release 10 meq PO DAILY tamsulosin [Flomax] 0.4 mg capsule 0.4 mg PO .B.i.d. Qty: 180 3RF Referrals: Derrick Feldman MD [Primary Care Provider] - Stand Alone Forms: Patient Portal/API
[2023-07-05 17:42] LABS: Add Manual Diff / Slide Review NO; Basophils Absolute Auto 100 /uL (0-100); Basophils Percent Auto 1.1 % (0-2); Eosinophils Absolute Auto 400 /uL (0-450); Eosinophils Percent Auto 5.6 % (2-4); Hematocrit 38.4 % (41-53); Hemoglobin 12.9 g/dL (13.5-17.5); Lymphocytes Absolute Auto 1700 /uL (1100-4500); Lymphocytes Percent Auto 25.7 % (25-40); Mean Corpuscular HGB Conc 33.5 % (30-36); Mean Corpuscular Hemoglobin 32.3 PG (26-34); Mean Corpuscular Volume 96.5 fL (80-100); Monocytes Absolute Auto 600 /uL (0-900); Monocytes Percent Auto 9.6 % (3-14); Neutrophils Absolute Auto 3900 /uL (1500-7000); Platelet Count 211 X10^3/uL (150-400); Red Blood Cell Count 3.98 X10^6/uL (4.5-5.9); Red Cell Distribution Width 13.2 % (11.6-14.8); White Blood Cell Count 6.7 X10^3/uL (4.5-11.0)
[2023-07-05 18:17] LABS: Alanine Aminotransferase 38 IU/L (<50); Albumin 4.7 g/dL (3.5-5.0); Albumin Globulin Ratio 1.6 (1.0-2.8); Alkaline Phosphatase 83 U/L (38-126); Aspartate Aminotransferase 43 IU/L (17-59); BUN Creatinine Ratio 16.1 (6-22); Bilirubin Total 0.9 mg/dL (0.2-1.3); Blood Urea Nitrogen 84 mg/dL (9-20); Calcium 9.8 mg/dL (8.4-10.2); Carbon Dioxide 21 mmol/L (22-32); Chloride 112 mmol/L (98-107); Estimated Glomerular Filt Rate 11 mL/min (>60); Globulin 2.9 g/dL (1.7-4.1); Glucose 104 mg/dL (80-110); HEMOLYSIS 23 (0-50); Potassium 4.1 mmol/L (3.4-5.1); Sodium 142 mmol/L (137-145); Total Protein 7.6 g/dL (6.3-8.2)
[2023-07-05 18:42] VITALS: BP 178/77; PULSE 50; RESP 20; TEMP 36.6; O2SAT 99
== END 2023-07-05 18:20 | disposition home or self-care (01) ==
PROVIDERS: Emergency Provider Emergency Medicine; PCP Internal Medicine; Referring Provider Student in an Organized Health Care Education/Training Program
DX: N13.2 Hydronephrosis with renal and ureteral calculous obstruction (principal); N17.9 Acute kidney failure, unspecified
CPT/HCPCS: 36415; 76770; 80053; 85025; 99283; 99284

== ENCOUNTER → 2023-07-05 | Outpatient (CLI) | payer OTHER, SELFPAY ==
[2022-05-25 16:18] VITALS: BMI 42.5
--- NOTE | 2023-07-05 | DI.US.S_ITS ---
PROCEDURE: US RENAL COMPLETE INDICATIONS: non-traumatic kidney injury TECHNIQUE: Real-time scanning was performed of the kidneys and bladder, with image documentation. COMPARISON: [facility], CT, CT KIDNEY URETER BLADDER (KUB), 04/27/2022, 8:27. FINDINGS: Kidneys: Kidneys are normal in size. Right kidney measures 8.5 cm long; left kidney measures 11.2 cm long. Right renal cortical thickness is 0.5 cm; left renal cortical thickness is 0.4 cm. Renal cortical echotexture is normal. Nonobstructive right renal staghorn calculus. No left renal stones identified by ultrasound imaging. Severe left hydronephrosis noted. No suspicious solid mass lesions. Bladder: Pre-void bladder volume is 416 mL. Post-void residual is 41 mL. Pre-void images demonstrate no intraluminal masses or stones. On pre-void images, neither the right nor the left ureteral jets are noted with color Doppler interrogation. (Of note, ureteral jets may not be detectable in up to 25% of cases due to insufficient differences in specific gravity between ureteral and bladder urine). Miscellaneous: No free pelvic fluid. IMPRESSION: Bilateral renal cortical thinning. Severe left hydronephrosis. Nonobstructing right renal staghorn calculus. Dictated by: Kamryn Solano MD, PhD on 07/05/2023 at 16:08 Approved by: Kamryn Solano MD, PhD on 07/05/2023 at 16:15
== END ==
PROVIDERS: PCP Internal Medicine; Referring Provider Student in an Organized Health Care Education/Training Program; Visit Provider Student in an Organized Health Care Education/Training Program
DX: N17.9 Acute kidney failure, unspecified (principal); N13.2 Hydronephrosis with renal and ureteral calculous obstruction
CPT/HCPCS: 76770

== ENCOUNTER → 2023-07-11 11:30 | Outpatient (CLI) | payer OTHER, SELFPAY ==
[2022-05-25 16:18] VITALS: BMI 42.5
[2023-07-11 12:38] LABS: BUN Creatinine Ratio 16.8 (6-22); Blood Urea Nitrogen 78 mg/dL (9-20); Calcium 9.6 mg/dL (8.4-10.2); Carbon Dioxide 23 mmol/L (22-32); Chloride 109 mmol/L (98-107); Estimated Glomerular Filt Rate 13 mL/min (>60); Glucose 100 mg/dL (80-110); HEMOLYSIS < 15 (0-50); Potassium 4.2 mmol/L (3.4-5.1); Sodium 142 mmol/L (137-145)
[2023-07-11 12:46] LABS: NT-proBNP (BNP-Adult 18+) 531 pg/mL (<125)
== END ==
PROVIDERS: PCP Internal Medicine; Referring Provider Student in an Organized Health Care Education/Training Program; Visit Provider Student in an Organized Health Care Education/Training Program
DX: N05.9 Unspecified nephritic syndrome with unspecified morphologic changes (principal); I50.32 Chronic diastolic (congestive) heart failure
CPT/HCPCS: 36415; 80048; 83880

== ENCOUNTER → 2023-07-13 10:19 | Outpatient (CLI) | payer OTHER, SELFPAY ==
[2022-05-25 16:18] VITALS: BMI 42.5
--- NOTE | 2023-07-13 10:20 | DI.RAD.S_ITS ---
PROCEDURE: XR KUB INDICATIONS: kidney stones TECHNIQUE: One view of the abdomen acquired. COMPARISON: Outside Facility, RG, CT ABDOMEN/PELVIS WITHOUT CONTRAST, 07/07/2023, 11:33. [facility], CR, KUB XRAY (1 VIEW ABDOMEN), 08/19/2015, 10:32. FINDINGS: Surgical changes and devices: Left-sided percutaneous nephrostomy tube. Bowel: Bowel gas pattern is normal. Soft tissues: Medullary nephrocalcinosis on the right. 1.4 cm stone projects over the proximal left ureter. Bones: No suspicious bony lesions. IMPRESSION: 1.4 cm stone projects over the proximal left ureter, similar to recent CT. Percutaneous left-sided nephrostomy tube present. Right-sided medullary nephrocalcinosis. Dictated by: Anjum Massey M.D. on 07/13/2023 at 14:22 Approved by: Anjum Massey M.D. on 07/13/2023 at 14:23
== END ==
PROVIDERS: PCP Internal Medicine; Referring Provider Specialist; Visit Provider Specialist
DX: N13.2 Hydronephrosis with renal and ureteral calculous obstruction (principal); E83.59 Other disorders of calcium metabolism; N29 Other disorders of kidney and ureter in diseases classified elsewhere; Z93.6 Other artificial openings of urinary tract status
CPT/HCPCS: 74018

== ENCOUNTER → 2023-07-27 10:53 | Outpatient (CLI) | payer OTHER, SELFPAY ==
[2022-05-25 16:18] VITALS: BMI 42.5
[2023-07-27 11:43] LABS: Hematocrit 36.8 % (41-53); Hemoglobin 12.5 g/dL (13.5-17.5)
[2023-07-27 12:11] LABS: BUN Creatinine Ratio 15.7 (6-22); Blood Urea Nitrogen 66 mg/dL (9-20); Calcium 9.3 mg/dL (8.4-10.2); Carbon Dioxide 21 mmol/L (22-32); Chloride 110 mmol/L (98-107); Estimated Glomerular Filt Rate 14 mL/min (>60); Glucose 186 mg/dL (80-110); HEMOLYSIS < 15 (0-50); Phosphorous 4.6 mg/dL (2.3-3.7); Potassium 3.7 mmol/L (3.4-5.1); Sodium 141 mmol/L (137-145)
[2023-07-27 12:12] LABS: Iron 80 ug/dL (49-181)
[2023-07-27 12:22] LABS: Total Iron Binding Capacity 232 ug/dL (261-462)
[2023-07-27 12:45] LABS: Ferritin 205 ng/mL (18-464)
== END ==
PROVIDERS: PCP Internal Medicine; Referring Provider Student in an Organized Health Care Education/Training Program; Visit Provider Student in an Organized Health Care Education/Training Program
DX: D50.0 Iron deficiency anemia secondary to blood loss (chronic) (principal); N05.9 Unspecified nephritic syndrome with unspecified morphologic changes; D70.9 Neutropenia, unspecified; D63.1 Anemia in chronic kidney disease; E83.30 Disorder of phosphorus metabolism, unspecified; N25.81 Secondary hyperparathyroidism of renal origin
CPT/HCPCS: 36415; 80048; 82728; 83540; 83550; 83970; 84100; 85014; 85018

== ENCOUNTER 2023-08-05 07:40 | Day surgery (SDC) | payer OTHER, SELFPAY ==
[2022-05-25 16:18] VITALS: BMI 42.5
[2023-08-01 14:49] VITALS: BMI 42.8
[2023-08-05] MEDS: LACTATED RINGERS 1,000 ML 42 ML IV (08:12)
--- NOTE | 2023-08-05 08:19 | PM.PREOP ---
Pre-operative Note Interval Note History & Physical reviewed/Exam performed by Physician: Yes Changes to H&P: No
[2023-08-05 08:32] VITALS: BP 140/67; PULSE 55; RESP 16; TEMP 36.3; O2SAT 97; BMI 42.3
[2023-08-05 08:44] LABS: BUN Creatinine Ratio 14.3 (6-22); Blood Urea Nitrogen 58 mg/dL (9-20); Calcium 8.7 mg/dL (8.4-10.2); Carbon Dioxide 22 mmol/L (22-32); Chloride 110 mmol/L (98-107); Estimated Glomerular Filt Rate 15 mL/min (>60); Glucose 147 mg/dL (80-110); Sodium 141 mmol/L (137-145)
[2023-08-05 08:50] LABS: HEMOLYSIS 97 (0-50); Potassium 4.6 mmol/L (3.4-5.1)
[2023-08-05] MEDS: ACETAMINOPHEN IV 1,000 MG/100 ML VIAL 400 MG IV (08:52)
--- NOTE | 2023-08-05 08:58 | SUR.OPER ---
Supine on padded OR bed, head on pillow, arms secured on padded arm boards at <90 degrees abduction, legs uncrossed, safety belt at thigh, tape over blanket over lower legs.
--- NOTE | 2023-08-05 09:28 | P.OP_ITS ---
Operative Date/Time/Diagnoses Date of procedure: 08/05/23 Time of procedure: 09:29 Pre-op diagnosis: 1. 1.4 cm left UPJ calculus. 2. CKD 3. History of obstructive SHAHBAZ. Post-op diagnosis: same Procedure & Clinicians Procedure: 1. Left extracorporeal shockwave lithotripsy (maximal power level 8.0 x 2500 shocks). Same procedure as scheduled: Yes Indications: 1. 1.4 cm obstructing left ureteropelvic junction calculus. 2. CKD 3. History of obstructive SHAHBAZ. Surgeon: Km Wild Click Yes if Unassisted: Yes Anesthesia Type: General Operative Notes Findings: 1. Index calculus unchanged in position compared to preoperative imaging. Closure Type: not applicable Specimen(s): none sent Blood products transfused: none Procedure in detail: Patient was positioned in supine and administered general anesthesia. The above-described calculus was then localized in the X, Y, and Z plane. Lithotripsy was then commenced at minimal power level for 200 shocks. A 2 minute pause was then conducted. Lithotripsy was then resumed and the power level was gradually increased initially to 7.0, later to 7.5, and for the last 500 shocks at power level 8.0. The calculus was re localize several times throughout the treatment as indicated. At conclusion of the treatment there did not appear to be discernible radiographic evidence of stone comminution. At 2500 shocks, treatment was halted. The patient was then awakened, transferred to [facility], then transferred to recovery in stable condition. Complications: other (The operating room/facility did not have appropriately sized sequential compression device sleeves to apply to the patient's calves preoperatively.) Post-operative Condition: stable Disposition: PACU Plan for aftercare: Discharge home
[2023-08-05 09:29] VITALS: BP 135/71; PULSE 47; RESP 12; TEMP 36.4; O2SAT 94
[2023-08-05 09:34] VITALS: BP 119/53; PULSE 46; RESP 15; O2SAT 95
[2023-08-05 09:39] VITALS: BP 121/56; PULSE 47; RESP 12; TEMP 36.4; O2SAT 94
[2023-08-05 09:44] VITALS: BP 120/64; PULSE 51; RESP 14; O2SAT 94
[2023-08-05 09:50] VITALS: BP 131/67; PULSE 48; RESP 15; TEMP 36.4; O2SAT 96
== END 2023-08-05 10:15 | disposition home or self-care (01) ==
PROVIDERS: PCP Internal Medicine; Referring Provider Specialist; Visit Provider Specialist
PROC: (CPT 50590; principal; 2023-08-05 09:15)
DX: N20.1 Calculus of ureter (principal); N40.1 Benign prostatic hyperplasia with lower urinary tract symptoms; N13.8 Other obstructive and reflux uropathy; N18.32 Chronic kidney disease, stage 3b
CPT/HCPCS: 50590; 36415; 80048; 82962; J0136; J1100; J1170; J2405; J2704

== ENCOUNTER → 2023-08-09 12:13 | Outpatient (CLI) | payer OTHER, SELFPAY ==
[2022-05-25 16:18] VITALS: BMI 42.5
--- NOTE | 2023-08-09 12:15 | DI.RAD.S_ITS ---
PROCEDURE: XR KUB INDICATIONS: Calculus of ureter TECHNIQUE: One view of the abdomen acquired. COMPARISON: Outside Facility, RG, CT ABDOMEN/PELVIS WITHOUT CONTRAST, 07/07/2023, 11:33. [facility], CR, XR KUB, 07/13/2023, 10:29. [facility], CR, KUB XRAY (1 VIEW ABDOMEN), 08/19/2015, 10:32. FINDINGS: Surgical changes and devices: None. Bowel: Bowel gas pattern is normal. Soft tissues: Calculus projecting in the region of the left proximal ureter measuring 1.6 cm, unchanged. Left percutaneous nephrostomy tube. Several staghorn like calculi in the right kidney appears similar. No suspicious abdominal calcifications. Visualized solid organ contours appear normal in size. Bones: No suspicious bony lesions. IMPRESSION: Left percutaneous nephrostomy tube. Calculus projecting in the region of the proximal left ureter measuring 1.6 cm is unchanged. Multiple nonobstructing right kidney stones. Dictated by: Myles Mohr M.D. on 08/09/2023 at 15:16 Approved by: Myles Mohr M.D. on 08/09/2023 at 15:20
== END ==
PROVIDERS: PCP Internal Medicine; Referring Provider Specialist; Visit Provider Specialist
DX: N20.0 Calculus of kidney (principal); Z93.6 Other artificial openings of urinary tract status
CPT/HCPCS: 74018

== ENCOUNTER → 2023-08-26 14:55 | Outpatient (CLI) | payer OTHER, SELFPAY ==
[2022-05-25 16:18] VITALS: BMI 42.5
[2023-08-26 17:03] LABS: Hematocrit 33.5 % (41-53); Hemoglobin 11.4 g/dL (13.5-17.5)
[2023-08-26 17:19] LABS: BUN Creatinine Ratio 17.7 (6-22); Blood Urea Nitrogen 90 mg/dL (9-20); Calcium 9.3 mg/dL (8.4-10.2); Carbon Dioxide 27 mmol/L (22-32); Chloride 105 mmol/L (98-107); Estimated Glomerular Filt Rate 11 mL/min (>60); Glucose 137 mg/dL (80-110); HEMOLYSIS < 15 (0-50); Potassium 3.7 mmol/L (3.4-5.1); Sodium 138 mmol/L (137-145)
[2023-08-28 08:07] LABS: Parathyroid Hormone Int 97 pg/mL (15-65)
== END ==
PROVIDERS: PCP Internal Medicine; Referring Provider Student in an Organized Health Care Education/Training Program; Visit Provider Student in an Organized Health Care Education/Training Program
DX: N05.9 Unspecified nephritic syndrome with unspecified morphologic changes (principal)
CPT/HCPCS: 80048; 83970; 85014; 85018

== ENCOUNTER → 2023-08-31 14:42 | Outpatient (CLI) | payer OTHER, SELFPAY ==
[2022-05-25 16:18] VITALS: BMI 42.5
--- NOTE | 2023-08-31 | DI.RAD.S_ITS ---
PROCEDURE: XR CHEST 2V INDICATIONS: RESP TUBERCULOSIS TECHNIQUE: 2 views of the chest were acquired. COMPARISON: [facility], CR, XR CHEST 1V, 03/22/2019, 9:27. FINDINGS: Surgical changes and devices: None. Lungs and pleura: Lungs are clear. No pleural effusions or pneumothorax. Mediastinum: Mediastinal contours are normal. Heart size is normal. Bones and chest wall: No suspicious bony abnormalities. Soft tissues appear unremarkable. IMPRESSION: No acute cardiopulmonary abnormality is seen. Dictated by: Teri Sherman M.D. on 09/01/2023 at 10:46 Approved by: Teri Sherman M.D. on 09/01/2023 at 10:46
[2023-09-01 18:11] LABS: Hepatitis B Surface Antigen NEGATIVE s/c (NEGATIVE)
[2023-09-01 18:12] LABS: Hep C Virus Ab w/Reflex Quant NEGATIVE s/c (NEGATIVE)
[2023-09-02 02:38] LABS: Hepatitis B Core Antibody Negative (Negative)
[2023-09-03 07:12] LABS: Hepatitis B Surf Ab Qualitativ Non Reactive (.)
== END ==
PROVIDERS: PCP Internal Medicine; Referring Provider Student in an Organized Health Care Education/Training Program; Visit Provider Student in an Organized Health Care Education/Training Program
DX: N18.6 End stage renal disease (principal); Z11.1 Encounter for screening for respiratory tuberculosis
CPT/HCPCS: 36415; 71046; 86704; 86706; 86803; 87340

== ENCOUNTER → 2023-09-19 13:57 | Outpatient (CLI) | payer OTHER, SELFPAY ==
[2022-05-25 16:18] VITALS: BMI 42.5
[2023-09-19 14:36] LABS: Appearance Urine UA SL CLOUDY; Bilirubin Urine UA NEGATIVE (NEGATIVE); Color Urine UA YELLOW; Glucose Urine UA NEGATIVE (Negative); Ketones Urine UA NEGATIVE (NEGATIVE); Leukocyte Esterase Urine UA 2+ (NEGATIVE); Nitrite Urine UA NEGATIVE (Negative); Occult Blood Urine UA 3+ (Negative); Protein Urine UA 2+ (Negative); Urobilinogen Urine UA 0.2 E.U./dL (0.2); pH Urine UA 5.5 (4.5-8.0)
[2023-09-19 14:38] LABS: Appearance Urine UA SL CLOUDY; Bilirubin Urine UA NEGATIVE (NEGATIVE); Color Urine UA YELLOW; Glucose Urine UA NEGATIVE (Negative); Ketones Urine UA NEGATIVE (NEGATIVE); Leukocyte Esterase Urine UA 3+ (NEGATIVE); Nitrite Urine UA NEGATIVE (Negative); Occult Blood Urine UA 3+ (Negative); Protein Urine UA 2+ (Negative); Urobilinogen Urine UA 0.2 E.U./dL (0.2)
[2023-09-19 14:47] LABS: Urine Volume 10mL (spun)
[2023-09-19 14:48] LABS: Bacteria Urine Many (>30); RBC Urine 5-10/HPF (0-5/HPF); Squamous Epithelial Cell Urine None Seen (0-5/HPF); WBC Urine 10-30/HPF (0-5/HPF)
[2023-09-19 14:50] LABS: Bacteria Urine None Seen; RBC Urine 1-5/HPF (0-5/HPF); Squamous Epithelial Cell Urine None Seen (0-5/HPF); Urine Volume 10mL (spun); WBC Urine 5-10/HPF (0-5/HPF)
== END ==
PROVIDERS: PCP Internal Medicine; Referring Provider Urology; Visit Provider Urology
DX: N20.0 Calculus of kidney (principal)
CPT/HCPCS: 81001; 87077; 87086

== ENCOUNTER 2023-11-04 09:36 | Emergency (ER) | payer OTHER, SELFPAY ==
[2022-05-25 16:18] VITALS: BMI 42.5
[2023-11-04 09:44] VITALS: O2SAT 96
[2023-11-04 09:46] VITALS: BP 151/70; PULSE 63; O2SAT 96
[2023-11-04 09:49] VITALS: BP 151/70; PULSE 66; RESP 16; TEMP 37; O2SAT 97; BMI 41.8
[2023-11-04 10:00] VITALS: PULSE 59; O2SAT 95
--- NOTE | 2023-11-04 10:05 | ED_ITS ---
HPI - Medical Clearance General Chief complaint: Medical Clearance Stated complaint: Fell out of bed hit head x5 blood thinners Time Seen by Provider: 11/04/23 10:02 History of Present Illness HPI Narrative: Patient 73-year-old male history of diabetes diabetic neuropathy dialysis y Tuesday presenting today for need for clearance. He reports that 5 days ago he rolled out of bed hit his head on his dresser did not really lose consciousness got himself up went got back into bed and went to sleep. Since then he has not had any headache nausea vomiting numbness tingling weakness or any other falls. However during dialysis they ask him if he has had falls which he reports yes he did. They withheld blood thinning medication I would heparin but unclear and he needs medical clearance so that they can resume dialysis normally. He has not actually missed dialysis they just with held this medication this week. He has no evidence of trauma on his head. Related Information Home Medications Medication Instructions Recorded Confirmed acetaminophen 325 mg capsule 650 mg PO Q6H PRN 08/11/23 10/17/23 allopurinol 100 mg tablet 100 mg PO DAILY 08/11/23 10/17/23 calcitriol 0.25 mcg capsule 0.25 mcg PO DAILY 08/11/23 10/17/23 cholecalciferol (vitamin D3) 50 50 mcg PO DAILY 08/11/23 10/17/23 mcg (2,000 unit) capsule omega-3 fatty acids 500 mg capsule 500 mg PO DAILY 08/11/23 10/17/23 oxycodone 5 mg capsule 5 mg PO BID PRN 08/11/23 10/17/23 tamsulosin 0.4 mg capsule 0.4 mg PO DAILY 08/11/23 10/17/23 torsemide 20 mg tablet 20 mg PO DAILY 08/11/23 10/17/23 loperamide 2 mg tablet (Imodium 2 mg PO Q6H PRN 10/17/23 10/17/23 A-D) Previous Rx's Medication Instructions Recorded Disabled Parking #1 ea 03/25/20 One Touch Ultra Blue Test Strips #250 ea 01/26/21 gabapentin 300 mg capsule 600 mg (2 x 300 mg) PO BID #360 09/29/23 caps amlodipine 10 mg tablet 10 mg PO DAILY #90 tabs 10/17/23 citalopram 20 mg tablet 20 mg PO BID #180 tabs 10/17/23 metoprolol tartrate 50 mg tablet 50 mg PO DAILY #90 tabs 10/17/23 simvastatin 20 mg tablet 20 mg PO DAILY #90 tabs 10/17/23 Allergies Allergy/AdvReac Type Severity Reaction Status Date / Time metformin AdvReac Intermediate TOXIC TO Verified 11/04/23 09:48 HIS KIDNEY Patient History Medical History Chronic renal failure, stage 5 Right ureteral calculus History of urinary retention Medullary sponge kidney BPH w urinary obs/LUTS Urinary retention Chronic renal failure, stage 3b Essential hypertension Bilateral nephrolithiasis Calcium nephrolithiasis Erectile dysfunction Lower urinary tract symptoms (LUTS) Arthritis Depression (~1999) Headache Shoulder pain Foot pain Plantar warts (~1960) Acne Kidney disease Peripheral polyneuropathy (10/21/16) Type 2 diabetes mellitus without complication (05/21/15) Mixed hyperlipidemia (05/21/15) Depression (05/21/15) Attention deficit hyperactivity disorder (ADHD) (05/21/15) Family History Mother Age: 91 Cerebrovascular accident (CVA), unspecified mechanism Social History household members: spouse Smoking Status: Former smoker alcohol intake: former Smoking Status: Former smoker Substance Use Type: does not use Exam Initial Vital Signs Initial Vital Signs: Vital Signs Pulse Oximetry 96 11/04/23 09:44 GENERAL: Well-appearing, well-nourished and in no acute distress. HEAD: Atraumatic no contusion depression or abrasion no laceration NECK: Full range of motion no vertebral tenderness CARDIOVASCULAR: peripheral pulses in tact, cap refill <2 sec RESPIRATORY: No respiratory distress, speaks in full sentences without difficulty NEURO: Early Childhood Specialist strength equal bilaterally no facial droop no neurologic deficits EXTREMITIES: Normal range of motion, no clubbing or edema. Neurovascularly intact NEUROLOGICAL: Cranial nerves II through XII grossly intact. Normal gait and speech. SKIN: Warm, dry, no petechiae, no rashes or lesions. Scores [place] CT Head Rule Age <16 years old: No Patient on blood thinners: No Seizure after injury: No Exclusion: Patient NOT Excluded, Proceed to next steps [facility] [place] coma scale eye opening: Spontaneous Betty coma scale verbal response: Orientated Betty coma scale motor response: Obey commands [place] coma scale total score: 15 MDM - Medical Clearance MDM Narrative Medical decision making narrative: Patient is 73-year-old male who presents today for medical clearance for dialysis. He had a low risk low mechanism head injury 5 days ago. He has not on anticoagulation medication. He has not had any further headache nausea vomiting numbness or tingling is worse. He has had no recurrent falls. He is here for medical clearance. At this time he does not require head CT. Discharge Plan Departure Patient Disposition: Home Clinical Impression: Closed head injury Instructions: Closed Head Injury Activity Restrictions/Additional Instructions: *You have been diagnosed with closed head injury *What to do: At this time you do not require any sort of imaging. You are medically cleared to resume dialysis as scheduled with all medication *Continue to take medications as directed *Follow up with your primary care provider in 2-3 days or call [phone] *Return to ER if you should have any new, worsening or concerning symptoms Prescriptions: No Action (DME) One Touch Ultra Blue Test Strips Qty: 250 5RF Rx Instructions: Use to test blood sugars twice daily gabapentin 300 mg capsule 600 mg PO BID Qty: 360 3RF Rx Instructions: TAKE 2 CAPSULES BY MOUTH TWICE DAILY amlodipine 10 mg tablet 10 mg PO DAILY Qty: 90 3RF citalopram 20 mg tablet 20 mg PO BID Qty: 180 3RF metoprolol tartrate 50 mg tablet 50 mg PO DAILY Qty: 90 3RF simvastatin 20 mg tablet 20 mg PO DAILY Qty: 90 3RF (DME) Disabled Parking See Rx Instructions .ROUTE .MEDSUPPLY Qty: 1 0RF Rx Instructions: Patient qualifies for disabled parking as per the attached form. loperamide [Imodium A-D] 2 mg tablet 2 mg PO Q6H PRN acetaminophen 325 mg capsule 650 mg PO Q6H PRN allopurinol 100 mg tablet 100 mg PO DAILY calcitriol 0.25 mcg capsule 0.25 mcg PO DAILY cholecalciferol (vitamin D3) 50 mcg (2,000 unit) capsule 50 mcg PO DAILY omega-3 fatty acids 500 mg capsule 500 mg PO DAILY oxycodone 5 mg capsule 5 mg PO BID PRN tamsulosin 0.4 mg capsule 0.4 mg PO DAILY torsemide 20 mg tablet 20 mg PO DAILY Referrals: Derrick Feldman MD [Primary Care Provider] - Stand Alone Forms: Patient Portal/API
== END 2023-11-04 10:19 | disposition home or self-care (01) ==
PROVIDERS: Emergency Provider Emergency Medicine; PCP Internal Medicine
DX: S09.90XA Unspecified injury of head, initial encounter (principal); W06.XXXA Fall from bed, initial encounter; Z79.01 Long term (current) use of anticoagulants
CPT/HCPCS: 99281

== ENCOUNTER → 2023-12-01 14:08 | Outpatient (CLI) | payer OTHER, SELFPAY ==
[2022-05-25 16:18] VITALS: BMI 42.5
--- NOTE | 2023-12-01 14:08 | DI.US.S_ITS ---
PROCEDURE: US RENAL COMPLETE INDICATIONS: NEPHROLITHIASIS TECHNIQUE: Real-time scanning was performed of the kidneys and bladder, with image documentation. COMPARISON: Outside Facility, , CT ABDOMEN/PELVIS WITHOUT CONTRAST, 07/07/2023, 11:33. [facility], , US RENAL COMPLETE, 07/05/2023, 15:03. FINDINGS: Kidneys: Kidneys are normal in size. Right kidney measures 10.0 cm long; left kidney measures 11.1 cm long. Right renal cortical thickness is 0.8 cm; left renal cortical thickness is 1.3 cm. Renal cortical echotexture is normal. Numerous shadowing right renal calculi versus medullary nephrocalcinosis. No left renal calculus. Prior left hydronephrosis has resolved. A left renal simple cyst measures up to 2.1 cm. No suspicious solid mass lesions. Bladder: Pre-void bladder volume is 291 mL. Post-void residual is 91 mL. Pre-void images demonstrate no intraluminal masses or stones. On pre-void images, no ureteral jets are noted with color Doppler interrogation. (Of note, ureteral jets may not be detectable in up to 25% of cases due to insufficient differences in specific gravity between ureteral and bladder urine). Miscellaneous: No free pelvic fluid. IMPRESSION: 1. No hydronephrosis. 2. Extensive right renal nonobstructing calculi versus medullary nephrocalcinosis. 3. Postvoid residual bladder volume is 91 mL. Approved by: Shubham Ruiz M.D. on 12/01/2023 at 21:01
== END ==
LOC: US 14:08
PROVIDERS: PCP Internal Medicine; Referring Provider Physician Assistant Surgical; Visit Provider Physician Assistant Surgical
DX: N20.0 Calculus of kidney (principal); N28.1 Cyst of kidney, acquired
CPT/HCPCS: 76770

== ENCOUNTER → 2024-01-02 14:23 | Outpatient (CLI) | payer OTHER, SELFPAY ==
[2022-05-25 16:18] VITALS: BMI 42.5
[2024-01-02 15:48] LABS: Alanine Aminotransferase 20 IU/L (<50); Albumin 3.9 g/dL (3.5-5.0); Albumin Globulin Ratio 1.4 (1.0-2.8); Alkaline Phosphatase 94 U/L (38-126); Aspartate Aminotransferase 23 IU/L (17-59); Bilirubin Total 0.6 mg/dL (0.2-1.3); Blood Urea Nitrogen 48 mg/dL (9-20); Carbon Dioxide 24 mmol/L (22-32); Chloride 101 mmol/L (98-107); Estimated Glomerular Filt Rate 8 mL/min (>60); Globulin 2.8 g/dL (1.7-4.1); Glucose 144 mg/dL (80-110); HEMOLYSIS 25 (0-50); Potassium 4.6 mmol/L (3.4-5.1); Sodium 138 mmol/L (137-145); Total Protein 6.7 g/dL (6.3-8.2)
[2024-01-02 16:55] LABS: Hemoglobin A1C% w Est Avg Glu 6.4 % (4.0-6.0)
== END ==
PROVIDERS: PCP Internal Medicine; Referring Provider Internal Medicine; Visit Provider Internal Medicine
DX: I12.9 Hypertensive chronic kidney disease with stage 1 through stage 4 chronic kidney disease, or unspecified chronic kidney disease (principal); N18.5 Chronic kidney disease, stage 5; E11.9 Type 2 diabetes mellitus without complications
CPT/HCPCS: 36415; 80053; 83036

== ENCOUNTER → 2024-02-03 14:54 | Outpatient (CLI) | payer OTHER, SELFPAY ==
[2022-05-25 16:18] VITALS: BMI 42.5
[2024-02-03 15:41] LABS: Add Manual Diff / Slide Review NO; Basophils Absolute Auto 100 /uL (0-100); Basophils Percent Auto 0.8 % (0-2); Eosinophils Absolute Auto 400 /uL (0-450); Eosinophils Percent Auto 5.6 % (2-4); Hematocrit 30.9 % (41-53); Hemoglobin 10.4 g/dL (13.5-17.5); Lymphocytes Absolute Auto 1700 /uL (1100-4500); Lymphocytes Percent Auto 25.4 % (25-40); Mean Corpuscular HGB Conc 33.6 % (30-36); Mean Corpuscular Hemoglobin 33.8 PG (26-34); Mean Corpuscular Volume 100.5 fL (80-100); Monocytes Absolute Auto 600 /uL (0-900); Monocytes Percent Auto 8.6 % (3-14); Neutrophils Absolute Auto 3900 /uL (1500-7000); Neutrophils Percent Auto 59.6 % (50-75); Platelet Count 215 X10^3/uL (150-400); Red Blood Cell Count 3.07 X10^6/uL (4.5-5.9); Red Cell Distribution Width 14.3 % (11.6-14.8); White Blood Cell Count 6.6 X10^3/uL (4.5-11.0)
[2024-02-03 15:58] LABS: Alanine Aminotransferase 16 IU/L (<50); Albumin 3.9 g/dL (3.5-5.0); Albumin Globulin Ratio 1.6 (1.0-2.8); Alkaline Phosphatase 88 U/L (38-126); Aspartate Aminotransferase 18 IU/L (17-59); BUN Creatinine Ratio 7.6 (6-22); Bilirubin Total 0.7 mg/dL (0.2-1.3); Blood Urea Nitrogen 81 mg/dL (9-20); Calcium 9.2 mg/dL (8.4-10.2); Carbon Dioxide 21 mmol/L (22-32); Chloride 110 mmol/L (98-107); Estimated Glomerular Filt Rate 5 mL/min (>60); Globulin 2.5 g/dL (1.7-4.1); Glucose 111 mg/dL (80-110); HEMOLYSIS < 15 (0-50); Potassium 4.9 mmol/L (3.4-5.1); Sodium 142 mmol/L (137-145); Total Protein 6.4 g/dL (6.3-8.2)
[2024-02-03 16:29] LABS: TSH w/ Reflex to FT4 2.96 uIU/mL (0.47-4.68)
== END ==
LOC: LAB 14:55
PROVIDERS: PCP Internal Medicine; Referring Provider Internal Medicine; Visit Provider Internal Medicine
DX: N18.5 Chronic kidney disease, stage 5 (principal)
CPT/HCPCS: 36415; 80053; 84443; 85025

== ENCOUNTER → 2024-02-28 10:06 | Outpatient (CLI) | payer OTHER, SELFPAY ==
[2022-05-25 16:18] VITALS: BMI 42.5
== END ==
PROVIDERS: PCP Internal Medicine; Visit Provider Urology
DX: N40.1 Benign prostatic hyperplasia with lower urinary tract symptoms (principal); N13.8 Other obstructive and reflux uropathy; N18.5 Chronic kidney disease, stage 5; Z87.442 Personal history of urinary calculi
CPT/HCPCS: 81002; 87086; 99213

== ENCOUNTER → 2024-04-02 18:46 | Outpatient (CLI) | payer MEDICARE, SELFPAY ==
[2022-05-25 16:18] VITALS: BMI 42.5
--- NOTE | 2024-04-02 18:48 | DI.MRI.S_ITS ---
PROCEDURE: MR HEAD/BRAIN WO CON INDICATIONS: sudden right hearing loss TECHNIQUE: Non-contrast axial T1 spin echo, axial T2 fast spin echo, sagittal and axial FLAIR, coronal T2 fast spin echo, axial gradient echo, axial diffusion and ADC through the brain. COMPARISON: CT, CT HEAD/BRAIN WO CON, 01/12/2023, 7:55. FINDINGS: Image quality: Excellent. CSF spaces: Ventricles appear symmetric in size and shape. Basal cisterns are patent. No extra-axial fluid collections. Brain: No intracranial bleeds or mass effects. There is cerebral volume loss for age. There are periventricular and deep white matter chronic small vessel ischemic changes. Brainstem appears normal. Diffusion-weighted images show no acute infarct. No chronic ischemic insults. Normal intravascular flow voids are present. Cerebellopontine angles and cranial nerves demonstrate no areas of abnormal enhancement, abnormal signal or mass lesion. Skull and face: Calvarial bone marrow is normal in signal. Orbits are normal. Sinuses: Sinuses and mastoids are clear. IMPRESSION: 1. No acute intracranial process. 2. Mild to moderate atrophy and chronic microvascular ischemic changes. 3. Cerebellopontine angles and visualized cranial nerves are within normal limits. Dictated by: Catherine Balbuena M.D. on 04/02/2024 at 22:48 Approved by: Catherine Balbuena M.D. on 04/02/2024 at 22:50
== END ==
PROVIDERS: PCP Internal Medicine; Referring Provider Otolaryngology; Visit Provider Otolaryngology
DX: H91.21 Sudden idiopathic hearing loss, right ear (principal); H90.3 Sensorineural hearing loss, bilateral; R26.89 Other abnormalities of gait and mobility
CPT/HCPCS: 70551

== ENCOUNTER → 2024-06-21 16:18 | Outpatient (CLI) | payer OTHER, SELFPAY ==
[2022-05-25 16:18] VITALS: BMI 42.5
--- NOTE | 2024-06-21 16:21 | DI.RAD.S_ITS ---
PROCEDURE: XR KUB INDICATIONS: History of nephrolithiasis TECHNIQUE: One view of the abdomen acquired. COMPARISON: [facility], CR, XR KUB, 08/09/2023, 12:21. FINDINGS: Several round calcifications measuring up to 2.2 cm diameter art projected over the right abdomen suspected gallstones and or renal calculi. A few small up to 4 mm calcifications are noted projected over the inferior pole left renal shadow. Peritoneal dialysis catheter is noted coiled at the level of the right iliac wing. Mild degenerative changes lower thoracic, lumbar spine and hips. Nonspecific abdominal bowel gas pattern. IMPRESSION: Peritoneal dialysis catheter. Other findings as above Dictated by: Wang Catherine M.D. on 06/22/2024 at 12:08 Approved by: Wang Catherine M.D. on 06/22/2024 at 12:14
== END ==
PROVIDERS: PCP Internal Medicine; Referring Provider Urology; Visit Provider Urology
DX: Z09 Encounter for follow-up examination after completed treatment for conditions other than malignant neoplasm (principal); Z87.442 Personal history of urinary calculi; M47.816 Spondylosis without myelopathy or radiculopathy, lumbar region; M47.814 Spondylosis without myelopathy or radiculopathy, thoracic region; Z95.828 Presence of other vascular implants and grafts
CPT/HCPCS: 74018

== ENCOUNTER → 2024-09-27 10:30 | Outpatient (CLI) | payer MEDICARE, SELFPAY ==
[2022-05-25 16:18] VITALS: BMI 42.5
--- NOTE | 2024-09-27 10:35 | DI.RAD.S_ITS ---
PROCEDURE: XR WRIST LT MIN 3V INDICATIONS: radial wrist pain TECHNIQUE: Four views of the wrist were acquired. COMPARISON: None. FINDINGS: Bones: No acute fractures or dislocations. Remote, corticated, displaced fracture of the radial styloid. No suspicious bony lesions. Soft tissues: No suspicious soft tissue calcifications. IMPRESSION: No acute bony abnormality. Dictated by: Emmanuelle Tinoco M.D. on 09/27/2024 at 15:17 Approved by: Emmanuelle Tinoco M.D. on 09/27/2024 at 15:18
== END ==
PROVIDERS: PCP Internal Medicine; Referring Provider Internal Medicine; Visit Provider Internal Medicine
DX: M25.532 Pain in left wrist (principal)
CPT/HCPCS: 73110

== ENCOUNTER 2024-12-07 13:46 | Emergency (ER) | payer OTHER, SELFPAY ==
[2022-05-25 16:18] VITALS: BMI 42.5
[2024-12-07] VITALS (15 sets, daily range): BP systolic 120–173; BP diastolic 57–81; PULSE 48–61; RESP 13–23; TEMP 36.4; O2SAT 87–98; BMI 41.6
--- NOTE | 2024-12-07 14:51 | EKG_ITS ---
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
[2024-12-07 15:02] LABS: Add Manual Diff / Slide Review NO; Hematocrit 35.2 % (41-53); Hemoglobin 11.9 g/dL (13.5-17.5); Lymphocytes Absolute Auto 1200 /uL (1100-4500); Mean Corpuscular HGB Conc 33.8 % (30-36); Mean Corpuscular Hemoglobin 33.7 PG (26-34); Mean Corpuscular Volume 99.8 fL (80-100); Platelet Count 231 X10^3/uL (150-400)
[2024-12-07 15:07] LABS: Alanine Aminotransferase 20 IU/L (<50); Albumin 4.4 g/dL (3.5-5.0); Albumin Globulin Ratio 1.5 (1.0-2.8); Alkaline Phosphatase 79 U/L (38-126); Blood Urea Nitrogen 60 mg/dL (9-20); Calcium 9.9 mg/dL (8.4-10.2); Carbon Dioxide 24 mmol/L (22-32); Chloride 99 mmol/L (98-107); Estimated Glomerular Filt Rate 7 mL/min (>60); Globulin 2.9 g/dL (1.7-4.1); Glucose 143 mg/dL (70-99); Lipase 178 U/L (23-300); Potassium 4.0 mmol/L (3.4-5.1); Sodium 137 mmol/L (137-145); Total Protein 7.3 g/dL (6.3-8.2)
[2024-12-07 15:08] LABS: HEMOLYSIS 57 (0-50)
--- NOTE | 2024-12-07 15:32 | DI.CT.S_ITS ---
PROCEDURE: CT ABDOMEN PELVIS WO CON INDICATIONS: abdominal pain TECHNIQUE: CT of the abdomen and pelvis was obtained without intravenous contrast. Coronal and sagittal reformats were performed. For radiation dose reduction, the following was used: automated exposure control, adjustment of mA and/or kV according to patient size. COMPARISON: Outside Facility, RG, CT ABDOMEN/PELVIS WITHOUT CONTRAST, 07/07/2023, 11:33. FINDINGS: Image quality: Diagnostic. Lower Chest: Mild ground-glass at the lung bases, may be infectious or inflammatory in etiology. ABDOMEN: Liver: No contour-deforming mass. Gallbladder: No radiopaque gallstones or wall thickening. Biliary ducts: No biliary dilation. Pancreas: No ductal dilation. Spleen: Size is within normal limits. Adrenal Glands: No adrenal nodules. Kidneys and Ureters: No hydronephrosis. No contour-deforming mass. Bilateral medullary calcifications. Stomach and Bowel: Normal colonic caliber, without significant wall thickening. Diverticulosis without evidence of acute diverticulitis. Normal appendix. Peritoneum: No abnormal intraperitoneal fluid. No free air. Peritoneal dialysis catheter coiled within the right lower quadrant. Ventral Wall: No significant hernia. Abdominal Nodes: No retroperitoneal or mesenteric adenopathy by size criteria. Vessels: Aorta and inferior vena cava are normal in size. Atherosclerotic vascular calcifications. PELVIS: Pelvic Organs: Unremarkable. Bladder: Unremarkable. Pelvic Nodes: No enlarged lymph nodes. Miscellaneous: No inguinal hernias are seen. Bones: No aggressive osseous abnormality. Degenerative changes of the spine. Left pars interarticularis defects at L5-S1. Decreased osseous mineralization. IMPRESSION: 1. No acute findings within the abdomen or pelvis. 2. Medullary nephrocalcinosis is noted. 3. Mild ground-glass in the lung bases, may be infectious or inflammatory in etiology. 4. Peritoneal dialysis catheter coiling in the lateral right lower quadrant. 5. Please see above for additional findings. Dictated by: Jeb Blackwell M.D. on 12/07/2024 at 16:35 Approved by: Jeb Blackwell M.D. on 12/07/2024 at 16:39
--- NOTE | 2024-12-07 20:03 | ED.GENADULT ---
HPI - General Adult General Chief complaint: Abdominal Pain Stated complaint: Shooting pain from right side of stomach Time Seen by Provider: 12/07/24 15:05 History of Present Illness HPI narrative: 74-year-old gentleman on peritoneal dialysis for the last year, hypertension, hyperlipidemia who presents with acute abdominal pain, right side approximately 2 cm from the site of the peritoneal dialysis catheter. He states that it has been worsening over the last 3-4 days. He has not had any fevers, chills, constipation, diarrhea. He has not been nauseated not complaining of chest pain. He has an appointment with his primary care physician on Tuesday with but was concerned that the pain was not going away. He was not interested in pain medications during his ER evaluation. Related Data Home Medications ?Medication ?Instructions ?Recorded ?Confirmed acetaminophen 325 mg capsule 650 mg PO Q6H PRN 08/11/23 10/18/24 allopurinol 100 mg tablet 100 mg PO DAILY 08/11/23 12/07/24 cholecalciferol (vitamin D3) 50 50 mcg PO DAILY 08/11/23 12/07/24 mcg (2,000 unit) capsule omega-3 fatty acids 500 mg capsule 500 mg PO DAILY 08/11/23 10/18/24 oxycodone 5 mg capsule 5 mg PO BID PRN 08/11/23 10/18/24 torsemide 20 mg tablet 20 mg PO DAILY 08/11/23 12/07/24 loperamide 2 mg tablet (Imodium 2 mg PO Q6H PRN 10/17/23 10/18/24 A-D) metoprolol tartrate 50 mg tablet 25 mg PO DAILY 01/02/24 12/07/24 blood sugar diagnostic (OneTouch #10 ea 02/03/24 10/18/24 Ultra Test strips) citalopram 20 mg tablet 40 mg PO BEDTIME 09/13/24 12/07/24 Previous Rx's ?Medication ?Instructions ?Recorded Disabled Parking #1 ea 03/25/20 amlodipine 10 mg tablet 10 mg PO DAILY #90 tabs 10/17/23 One Touch Ultra Blue Test Strips #250 ea 01/27/24 simvastatin 20 mg tablet 20 mg PO DAILY #90 tabs 06/15/24 triamcinolone acetonide 0.1 % 1 applic topical QID #80 grams 07/15/25 topical cream gabapentin 300 mg capsule 600 mg (2 x 300 mg) PO BID #360 10/05/24 caps Allergies Allergy/AdvReac Type Severity Reaction Status Date / Time metformin AdvReac Intermediate TOXIC TO Verified 10/18/24 10:55 HIS KIDNEY Review of Systems Review of Systems Narrative: Pertinent positive and negative findings as per HPI Patient History Medical History History of nephrolithiasis Hx of adenomatous colonic polyps (~07/2022) Chronic renal failure, stage 5 Right ureteral calculus History of urinary retention Medullary sponge kidney BPH w urinary obs/LUTS Urinary retention Chronic renal failure, stage 3b Essential hypertension Bilateral nephrolithiasis Calcium nephrolithiasis Erectile dysfunction Arthritis Depression (~1999) Headache Shoulder pain Foot pain Plantar warts (~1959) Acne Kidney disease Peripheral polyneuropathy (10/21/16) Type 2 diabetes mellitus without complication (05/21/15) Mixed hyperlipidemia (05/21/15) Depression (05/21/15) Attention deficit hyperactivity disorder (ADHD) (05/21/15) Surgical History Ceres teeth removed (03/14/91) Family History Mother Age: 92 Cerebrovascular accident (CVA), unspecified mechanism Social History marital status: number of children: 2 household members: spouse caregiver/support person: No housing: house pets and animals: No education level: high school occupational status: previously employed and disabled current occupational exposures/hazards: No (Retired) lao/gnosticism: I'm a believer in [place] special alo needs: No travel history: over 6 months ago sexual history: none of your business leisure activities: exercise, games and reading other: woodworking seatbelt use: always helmet use: No working smoke detector in home: Yes fire extinguisher in home: Yes carbon monox detector in home: Yes firearms in home: Yes firearms unloaded and locked: Yes do you feel safe at home: Yes Tobacco: How many years used: 5 second hand exposure: No alcohol intake: former substance use type: does not use during the past year weight has: decreased > 10 lbs well-balanced diet: daily or most days daily servings fruits/ve-4 caffeine: No eating out: rarely or never Type(s) of exercise: walking and occasional exercise frequency: 1-2 times per week duration: 15-30 minutes/day Exam Initial Vital Signs Initial Vital Signs: Vital Signs Temperature 97.6 F 12/07/24 14:11 Pulse Rate 55 L 12/07/24 14:11 Respiratory Rate 16 12/07/24 14:11 Blood Pressure 133/63 12/07/24 14:11 Pulse Oximetry 97 12/07/24 14:11 Oxygen Delivery Method Room Air 12/07/24 14:11 General: Chronically ill-appearing but in no acute distress. Able to give a complete and coherent history. HEENT: Moist mucous membranes, normal sclera with reactive pupils, Respiratory: Lungs are clear to auscultation, no wheezing no rales no rhonchi. Full and symmetrical air movement Cardiac: Regular rate and rhythm no murmurs no bruits Abdomen: Soft, nontender, no rebound or guarding, no flank pain. Peritoneal dialysis catheter site is clean and dry. There is no suggestion of any acute peritonitis Skin: Warm and dry, no rashes Neurologic: Grossly neurologically intact with no obvious asymmetries or abnormalities Extremities: No trauma, no significant lower extremity edema Psych: Frustrated with time he has spent in the emergency department but otherwise appropriate insight and affect Course Orders Ordered: ED Orders 12/07/24 14:40 Complete Blood Count AUTO DIFF Stat Comprehensive Metabolic Panel Stat Lipase Stat 12/07/24 14:51 EKG-12 Lead Stat 12/07/24 15:32 CT abdomen pelvis wo con Stat Ondansetron HCl (Ondansetron 4 Mg/2 Ml Inj) 4 mg IV NOW PRN PRN Reason: Nausea And Vomiting Ondansetron HCl (Ondansetron 4 Mg Odt) 4 mg PO NOW PRN PRN Reason: Nausea And Vomiting Vital Signs Vital signs: Vital Signs - 8 hr 12/07/24 14:11 12/07/24 16:07 12/07/24 16:07 Temperature 97.6 F Pulse Rate 55 L 61 Respiratory Rate 16 Blood Pressure 133/63 120/57 L Pulse Oximetry 97 96 Oxygen Delivery Method Room Air 12/07/24 16:30 12/07/24 16:31 12/07/24 16:31 Temperature Pulse Rate 55 L 56 L Respiratory Rate 19 Blood Pressure 123/58 L Pulse Oximetry 95 96 Oxygen Delivery Method 12/07/24 17:00 12/07/24 17:01 12/07/24 17:01 Temperature Pulse Rate 51 L 51 L Respiratory Rate 15 17 Blood Pressure 147/70 H Pulse Oximetry 93 94 Oxygen Delivery Method 12/07/24 17:30 12/07/24 17:30 Temperature Pulse Rate 51 L Respiratory Rate 23 Blood Pressure 164/72 H Pulse Oximetry 93 Oxygen Delivery Method Medical Decision Making Lab Data 12/07/24 14:40 12/07/24 14:40 Labs: Lab Results 12/07/24 Range/Units 14:40 WBC 8.3 (4.5-11.0) X10^3/uL RBC 3.53 L (4.5-5.9) X10^6/uL Hgb 11.9 L (13.5-17.5) g/dL Hct 35.2 L (41-53) % MCV 99.8 (80-100) fL MCH 33.7 (26-34) PG MCHC 33.8 (30-36) % RDW 13.9 (11.6-14.8) % Plt Count 231 (150-400) X10^3/uL Neut % (Auto) 73.0 (50-75) % Lymph % (Auto) 14.6 L (25-40) % [place] % (Auto) 7.0 (3-14) % Eos % (Auto) 4.7 H (2-4) % Baso % (Auto) 0.7 (0-2) % Neut # (Auto) 6000 (4248-8961) /uL Lymph # (Auto) 1200 (3648-0106) /uL [place] # (Auto) 600 (0-900) /uL Eos # (Auto) 400 (0-450) /uL Baso # (Auto) 100 (0-100) /uL Sodium 137 (137-145) mmol/L Potassium 4.0 (3.4-5.1) mmol/L Chloride 99 (98-107) mmol/L Carbon Dioxide 24 (22-32) mmol/L BUN 60 H (9-20) mg/dL Creatinine 7.37 H (0.66-1.25) mg/dL Estimated GFR 7 L (>60) mL/min BUN/Creatinine Ratio 8.1 (6-22) Glucose 143 H (70-99) mg/dL Calcium 9.9 (8.4-10.2) mg/dL Total Bilirubin 0.7 (0.2-1.3) mg/dL AST 39 (17-59) IU/L ALT 20 (<50) IU/L Alkaline Phosphatase 79 (38-126) U/L Total Protein 7.3 (6.3-8.2) g/dL Albumin 4.4 (3.5-5.0) g/dL Globulin 2.9 (1.7-4.1) g/dL Albumin/Globulin Ratio 1.5 (1.0-2.8) Lipase 178 (23-300) U/L MDM Narrative Medical decision making narrative: CC: Right-sided abdominal pain Complicating co-morbidities: Chronic kidney disease on peritoneal dialysis, hypertension, hyperlipidemia Data collected from: patient Medical records reviewed: Recent nephrology notes and primary care visits are reviewed Differential considered: Spontaneous bacterial peritonitis, dialysis catheter abnormalities, appendicitis, bowel obstruction, acute kidney abnormality Exam documented above, pertinent findings include: Patient has point tenderness 4 cm lateral and 2 cm below the peritoneal dialysis insertion site. He does not have diffuse abdominal tenderness. It does not have any peritoneal signs Lab Test results independently reviewed as above. Pertinent findings: CBC shows chronic anemia, no leukocytosis Chemistries show creatinine that is 7.37 BUN 60, potassium of 4 sodium of 137. LFTs are all unremarkable Independently reviewed EKG: EKG shows sinus rhythm with first-degree block. No acute ischemic change Imaging studies independently reviewed: CT scan of the abdomen and pelvis does not show acute pathology to explain the point tenderness Consultations: Discussion with General surgery he to reviewed the CT scan in real-time and saw no additional concern Discussion: 74-year-old gentleman with right sided point specific abdominal pain peritoneal dialysis with CT scan that does not suggest acute pathology and labs that are quite reassuring. There is no evidence of internal hernia, spontaneous bacterial peritonitis, bowel obstruction, significant constipation or alternate explanation that would require further evaluation or hospitalization. Discussed all of the findings with him did offer pain medication but he declined. He has not appointment with his primary care physician on Tuesday which seems entirely appropriate for follow up. I did encourage him to return if symptoms worsen, begin the vomiting he has diarrhea, constipation or is unable to pass any gas or change in his overall pain level. He is safe for discharge Discharge Plan Departure Patient Disposition: Home Clinical Impression: Peritoneal dialysis catheter in place Abdominal pain Qualifiers: Abdominal location: right lower quadrant Qualified Code(s): R10.31 - Right lower quadrant pain Chronic kidney disease Qualifiers: Chronic kidney disease stage: on chronic dialysis Qualified Code(s): N18.6 - End stage renal disease Instructions: DI for Abdominal Pain-Adult Activity Restrictions/Additional Instructions: Thank you for coming in today Your blood work was very reassuring. Aside from your chronically elevated creatinine, there was no evidence of potassium or sodium abnormalities. No evidence of worsening anemia or infection. A CT scan of your abdomen was done that again, was quite reassuring. There is no obvious explanation for the significant pain that you are having just lateral to the peritoneal dialysis catheter. I reviewed the CT scan myself and discussed it with our surgeon on-call, at this point there was no indication of spontaneous bacterial peritonitis, internal hemorrhage, problems with your peritoneal dialysis catheter or other findings that would require hospitalization. I believe it is safe for you to go home, if your pain is getting worse or develop new symptoms that would be very appropriate to return to the ER. Please do mentioned this ER visit to your primary care doctor with whom you have an appointment on Tuesday Prescriptions: No Action amlodipine 10 mg tablet 10 mg PO DAILY Qty: 90 3RF (DME) One Touch Ultra Blue Test Strips Qty: 250 5RF Rx Instructions: Use to test blood sugars twice daily simvastatin 20 mg tablet 20 mg PO DAILY Qty: 90 2RF triamcinolone acetonide 0.1 % cream 1 applic topical QID Qty: 80 0RF gabapentin 300 mg capsule 600 mg PO BID Qty: 360 3RF Rx Instructions: TAKE 2 CAPSULES BY MOUTH TWICE DAILY (DME) Disabled Parking See Rx Instructions .ROUTE .MEDSUPPLY Qty: 1 0RF Rx Instructions: Patient qualifies for disabled parking as per the attached form. metoprolol tartrate 50 mg tablet 25 mg PO DAILY citalopram 20 mg tablet 40 mg PO BEDTIME loperamide [Imodium A-D] 2 mg tablet 2 mg PO Q6H PRN (DME) OneTouch Ultra Test Strip See Rx Instructions .ROUTE BID Qty: 10 Rx Instructions: As directed acetaminophen 325 mg capsule 650 mg PO Q6H PRN allopurinol 100 mg tablet 100 mg PO DAILY cholecalciferol (vitamin D3) 50 mcg (2,000 unit) capsule 50 mcg PO DAILY omega-3 fatty acids 500 mg capsule 500 mg PO DAILY oxycodone 5 mg capsule 5 mg PO BID PRN torsemide 20 mg tablet 20 mg PO DAILY Referrals: Derrick Feldman MD [Primary Care Provider, Internal Medicine] Stand Alone Forms: Patient Portal/API
== END 2024-12-07 20:46 | disposition home or self-care (01) ==
PROVIDERS: Emergency Medicine; Emergency Provider Emergency Medicine; PCP Internal Medicine
DX: R10.31 Right lower quadrant pain (principal); N18.6 End stage renal disease; Z99.2 Dependence on renal dialysis
CPT/HCPCS: 36415; 74176; 80053; 83690; 85025; 93005; 93010; 99283; 99284

== ENCOUNTER → 2024-12-10 11:05 | Outpatient (CLI) | payer OTHER, SELFPAY ==
[2022-05-25 16:18] VITALS: BMI 42.5
[2024-12-10 12:42] LABS: Hemoglobin A1C% w Est Avg Glu 6.3 % (4.0-6.0)
[2024-12-10 12:54] LABS: Cholesterol 117 mg/dL (140-199); HDL Cholesterol 31 mg/dL (40-60); Triglycerides 210 mg/dL (35-150)
== END ==
PROVIDERS: PCP Internal Medicine; Referring Provider Internal Medicine; Visit Provider Internal Medicine
DX: E11.9 Type 2 diabetes mellitus without complications (principal); E78.2 Mixed hyperlipidemia; I10 Essential (primary) hypertension
CPT/HCPCS: 80061; 83036

== ENCOUNTER → 2024-12-24 11:08 | Outpatient (CLI) | payer OTHER, SELFPAY ==
[2022-05-25 16:18] VITALS: BMI 42.5
--- NOTE | 2024-12-24 11:09 | DI.RAD.S_ITS ---
PROCEDURE: XR KUB INDICATIONS: 74 y/o M w/ nephrolithiasis, eval stone burden. TECHNIQUE: One view of the abdomen acquired. COMPARISON: [facility], CR, XR WRIST LT MIN 3V, 09/27/2024, 9:46. [facility], CT, CT ABDOMEN PELVIS WO CON, 12/07/2024, 15:43. [facility], CR, XR KUB, 06/21/2024, 16:16. FINDINGS: Surgical changes and devices: None. Bowel: Bowel gas pattern is normal. Soft tissues: Multiple areas of increased density are present overlying the expected location of the right renal shadow. It appears relatively similar compared to prior x-ray on 06/21/2024. There are calcifications present within the left kidney as identified on prior CT. However, they are less well visualized overlying the renal shadows secondary to significant colonic stool. Visualized solid organ contours appear normal in size. Bones: No suspicious bony lesions. IMPRESSION: Unchanged appearance of calcifications overlying the right renal shadow. Overlying colonic stool obscures calcifications overlying the left renal shadow. Dictated by: Catherine Balbuena M.D. on 12/24/2024 at 15:09 Approved by: Catherine Balbuena M.D. on 12/24/2024 at 15:11
== END ==
PROVIDERS: PCP Internal Medicine; Referring Provider Urology; Visit Provider Urology
DX: Z87.442 Personal history of urinary calculi (principal)
CPT/HCPCS: 74018

== ENCOUNTER → 2024-12-25 09:12 | Outpatient (CLI) | payer OTHER, SELFPAY ==
[2022-05-25 16:18] VITALS: BMI 42.5
[2024-12-25 10:48] LABS: Hematocrit 28.2 % (41-53); Hemoglobin 9.8 g/dL (13.5-17.5)
== END ==
PROVIDERS: PCP Internal Medicine; Referring Provider Student in an Organized Health Care Education/Training Program; Visit Provider Student in an Organized Health Care Education/Training Program
DX: D70.9 Neutropenia, unspecified (principal); D63.1 Anemia in chronic kidney disease
CPT/HCPCS: 36415; 85014; 85018